=== PATIENT | male | born 1965 | race American Indian/Alaskan Native ===

== ENCOUNTER 2020-07-12 22:55 | Emergency (ER) | payer MEDICARE ==
[2020-07-13 01:14] LABS: Bilirubin,Urine NEG (Negative); Blood,Urine NEG (Negative); Color,Urine Colorless (Yellow); Mucus,Urine FEW /HPF; Protein,Urine <15 mg/dL mg/dL (Negative); Urobilinogen,Urine < 2.0 mg/dL (<2.0); WBC,Urine < 1.0 /HPF (0.0-6.0)
[2020-07-13 01:15] LABS: Basophils % (Auto) 0.3 % (0.0-1.8); Eosinophils # (Auto) 0.4 K/mm3 (0.0-0.4); Eosinophils % (Auto) 4.1 % (0.0-4.3); Hematocrit 39.9 % (35.5-45.6); Hemoglobin 13.5 gm/dl (11.8-15.2); Lymphocytes # (Auto) 2.5 K/mm3 (1.2-5.4); Lymphocytes % (Auto) 27.1 % (13.4-35.0); Mean Corpuscular HGB Conc 34 % (32-34); Mean Corpuscular Volume 89 fl (84-94); Monocytes # (Auto) 0.9 K/mm3 (0.0-0.8); Monocytes % (Auto) 9.3 % (0.0-7.3); Platelet Count 262 K/mm3 (140-440); Red Blood Count 4.47 M/mm3 (3.65-5.03)
[2020-07-13 01:21] LABS: Amphetamine Screen,Urine PRESUMPTIVE NEGATIVE; Benzodiazepines Screen,Urine PRESUMPTIVE NEGATIVE; Cannabinoid Screen,Urine PRESUMPTIVE NEGATIVE; Cocaine Screen,Urine PRESUMPTIVE NEGATIVE; Methadone Screen,Urine PRESUMPTIVE NEGATIVE; Opiate Screen,Urine PRESUMPTIVE NEGATIVE
[2020-07-13 01:29] LABS: BUN/Creatinine Ratio 12; Blood Urea Nitrogen 12 mg/dL (9-20); Calcium 9.4 mg/dL (8.4-10.2); Hemolysis Index 4
--- NOTE | 2020-07-13 09:45 | Emergency Department Report ---
ED Psych HPI - General Chief Complaint: Psych Stated Complaint: GURVINDER TEMPLE Time Seen by Provider: 07/13/20 07:48 Source: patient Mode of arrival: Ambulatory - History of Present Illness Initial Comments: Patient is a 54-year-old F Burmese male with a past medical history of schizoa ffective disorder and passive suicidal thoughts for most of his life is coming in stating that his suicidal thoughts are slightly worse than he wants some of his medications adjusted. He has had no active plan and no active attempts. Otherwise patient states he feels well. He has no cough cold congestion nausea vomiting or diarrhea at this time. - Related Data Home Medications Medication Instructions Recorded Confirmed Last Taken ARIPiprazole [Abilify TAB] 5 mg PO DAILY 07/13/20 07/13/20 Unknown Benztropine Mesylate 1 mg PO BID 07/13/20 07/13/20 07/12/20 hydrOXYzine PAMOATE [Vistaril] 25 mg PO TID 07/13/20 07/13/20 07/12/20 metFORMIN [Glucophage] 500 mg PO BID 07/13/20 07/13/20 1 Day Ago ~07/12/20 Allergies Allergy/AdvReac Type Severity Reaction Status Date / Time No Known Allergies Allergy Unverified 07/13/20 00:32 ED Review of Systems ROS: Stated complaint: GURVINDER EVAL Other details as noted in HPI Comment: All other systems reviewed and negative ED Past Medical Hx - Past Medical History Previous Medical History?: Yes Hx Psychiatric Treatment: Yes (Schizoaffective) - Surgical History Past Surgical History?: No - Social History Smoking Status: Former Smoker Substance Use Type: None - Medications Home Medications: Home Medications Medication Instructions Recorded Confirmed Last Taken Type ARIPiprazole [Abilify TAB] 5 mg PO DAILY 07/13/20 07/13/20 Unknown History Benztropine Mesylate 1 mg PO BID 07/13/20 07/13/20 07/12/20 History hydrOXYzine PAMOATE [Vistaril] 25 mg PO TID 07/13/20 07/13/20 07/12/20 History metFORMIN [Glucophage] 500 mg PO BID 07/13/20 07/13/20 1 Day Ago History ~07/12/20 ED Physical Exam - General Limitations: No Limitations General appearance: alert, in no apparent distress - Head Head exam: Present: atraumatic, normocephalic - Eye Eye exam: Present: normal appearance - ENT ENT exam: Present: mucous membranes moist - Neck Neck exam: Present: normal inspection - Respiratory Respiratory exam: Absent: respiratory distress - Cardiovascular Cardiovascular Exam: Present: regular rate, normal rhythm - GI/Abdominal GI/Abdominal exam: Present: soft, normal bowel sounds - Rectal Rectal exam: Present: deferred - Extremities Exam Extremities exam: Present: normal inspection - Back Exam Back exam: Present: normal inspection - Neurological Exam Neurological exam: Present: alert, oriented X3 - Psychiatric Psychiatric exam: Present: normal affect, normal mood - Skin Skin exam: Present: warm, dry, intact, normal color. Absent: rash ED Course Vital Signs 07/13/20 00:16 Temperature 98.0 F Pulse Rate 76 Respiratory 16 Rate Blood Pressure 119/77 O2 Sat by Pulse 96 Oximetry - Reevaluation(s) Reevaluation #1: 07/13/20 09:57 Patient is medically cleared at this time for psychiatric evaluation ED Medical Decision Making - Lab Data Result diagrams: 07/13/20 00:35 07/13/20 00:35 Lab Results 07/13/20 07/13/20 07/13/20 Range/Units 00:33 00:33 00:35 WBC (4.5-11.0) K/mm3 RBC (3.65-5.03) M/mm3 Hgb (11.8-15.2) gm/dl Hct (35.5-45.6) % MCV (84-94) fl MCH (28-32) pg MCHC (32-34) % RDW (13.2-15.2) % Plt Count (140-440) K/mm3 Lymph % (Auto) (13.4-35.0) % [place] % (Auto) (0.0-7.3) % Eos % (Auto) (0.0-4.3) % Baso % (Auto) (0.0-1.8) % Lymph # (Auto) (1.2-5.4) K/mm3 [place] # (Auto) (0.0-0.8) K/mm3 Eos # (Auto) (0.0-0.4) K/mm3 Baso # (Auto) (0.0-0.1) K/mm3 Seg Neutrophils % (40.0-70.0) % Seg Neutrophils # (1.8-7.7) K/mm3 Sodium (137-145) mmol/L Potassium (3.6-5.0) mmol/L Chloride (98-107) mmol/L Carbon Dioxide (22-30) mmol/L Anion Gap mmol/L BUN (9-20) mg/dL Creatinine (0.8-1.3) mg/dL Estimated GFR ml/min BUN/Creatinine Ratio % Glucose (75-100) mg/dL Calcium (8.4-10.2) mg/dL Urine Color Colorless (Yellow) Urine Turbidity Clear (Clear) Urine pH 5.0 (5.0-7.0) Ur Specific Gar[place] 1.003 (1.003-1.030) Urine Protein <15 mg/dl (Negative) mg/dL Urine Glucose (UA) Neg (Negative) mg/dL Urine Ketones Neg (Negative) mg/dL Urine Blood Neg (Negative) Urine Nitrite Neg (Negative) Urine Bilirubin Neg (Negative) Urine Urobilinogen < 2.0 (<2.0) mg/dL Ur Leukocyte Esterase Neg (Negative) Urine WBC (Auto) < 1.0 (0.0-6.0) /HPF Urine RBC (Auto) 0.0 (0.0-6.0) /HPF Urine Mucus Few /HPF Salicylates < 0.3 L (2.8-20.0) mg/dL Urine Opiates Screen Presumptive negative Urine Methadone Screen Presumptive negative Acetaminophen (10.0-30.0) ug/mL Ur Barbiturates Screen Presumptive negative Ur Phencyclidine Scrn Presumptive negative Ur Amphetamines Screen Presumptive negative U Benzodiazepines Scrn Presumptive negative Urine Cocaine Screen Presumptive negative U Marijuana (THC) Screen Presumptive negative Drugs of Abuse Note Disclamer Plasma/Serum Alcohol (0-0.07) % 07/13/20 07/13/20 07/13/20 Range/Units 00:35 00:35 00:35 WBC (4.5-11.0) K/mm3 RBC (3.65-5.03) M/mm3 Hgb (11.8-15.2) gm/dl Hct (35.5-45.6) % MCV (84-94) fl MCH (28-32) pg MCHC (32-34) % RDW (13.2-15.2) % Plt Count (140-440) K/mm3 Lymph % (Auto) (13.4-35.0) % [place] % (Auto) (0.0-7.3) % Eos % (Auto) (0.0-4.3) % Baso % (Auto) (0.0-1.8) % Lymph # (Auto) (1.2-5.4) K/mm3 [place] # (Auto) (0.0-0.8) K/mm3 Eos # (Auto) (0.0-0.4) K/mm3 Baso # (Auto) (0.0-0.1) K/mm3 Seg Neutrophils % (40.0-70.0) % Seg Neutrophils # (1.8-7.7) K/mm3 Sodium 138 (137-145) mmol/L Potassium 4.2 (3.6-5.0) mmol/L Chloride 99.1 (98-107) mmol/L Carbon Dioxide 24 (22-30) mmol/L Anion Gap 19 mmol/L BUN 12 (9-20) mg/dL Creatinine 1.0 (0.8-1.3) mg/dL Estimated GFR > 60 ml/min BUN/Creatinine Ratio 12 % Glucose 77 (75-100) mg/dL Calcium 9.4 (8.4-10.2) mg/dL Urine Color (Yellow) Urine Turbidity (Clear) Urine pH (5.0-7.0) Ur Specific Gar[place] (1.003-1.030) Urine Protein (Negative) mg/dL Urine Glucose (UA) (Negative) mg/dL Urine Ketones (Negative) mg/dL Urine Blood (Negative) Urine Nitrite (Negative) Urine Bilirubin (Negative) Urine Urobilinogen (<2.0) mg/dL Ur Leukocyte Esterase (Negative) Urine WBC (Auto) (0.0-6.0) /HPF Urine RBC (Auto) (0.0-6.0) /HPF Urine Mucus /HPF Salicylates (2.8-20.0) mg/dL Urine Opiates Screen Urine Methadone Screen Acetaminophen 5.0 L (10.0-30.0) ug/mL Ur Barbiturates Screen Ur Phencyclidine Scrn Ur Amphetamines Screen U Benzodiazepines Scrn Urine Cocaine Screen U Marijuana (THC) Screen Drugs of Abuse Note Plasma/Serum Alcohol < 0.01 (0-0.07) % 07/13/20 Range/Units 00:35 WBC 9.2 (4.5-11.0) K/mm3 RBC 4.47 (3.65-5.03) M/mm3 Hgb 13.5 (11.8-15.2) gm/dl Hct 39.9 (35.5-45.6) % MCV 89 (84-94) fl MCH 30 (28-32) pg MCHC 34 (32-34) % RDW 14.0 (13.2-15.2) % Plt Count 262 (140-440) K/mm3 Lymph % (Auto) 27.1 (13.4-35.0) % [place] % (Auto) 9.3 H (0.0-7.3) % Eos % (Auto) 4.1 (0.0-4.3) % Baso % (Auto) 0.3 (0.0-1.8) % Lymph # (Auto) 2.5 (1.2-5.4) K/mm3 [place] # (Auto) 0.9 H (0.0-0.8) K/mm3 Eos # (Auto) 0.4 (0.0-0.4) K/mm3 Baso # (Auto) 0.0 (0.0-0.1) K/mm3 Seg Neutrophils % 59.2 (40.0-70.0) % Seg Neutrophils # 5.5 (1.8-7.7) K/mm3 Sodium (137-145) mmol/L Potassium (3.6-5.0) mmol/L Chloride (98-107) mmol/L Carbon Dioxide (22-30) mmol/L Anion Gap mmol/L BUN (9-20) mg/dL Creatinine (0.8-1.3) mg/dL Estimated GFR ml/min BUN/Creatinine Ratio % Glucose (75-100) mg/dL Calcium (8.4-10.2) mg/dL Urine Color (Yellow) Urine Turbidity (Clear) Urine pH (5.0-7.0) Ur Specific [place] (1.003-1.030) Urine Protein (Negative) mg/dL Urine Glucose (UA) (Negative) mg/dL Urine Ketones (Negative) mg/dL Urine Blood (Negative) Urine Nitrite (Negative) Urine Bilirubin (Negative) Urine Urobilinogen (<2.0) mg/dL Ur Leukocyte Esterase (Negative) Urine WBC (Auto) (0.0-6.0) /HPF Urine RBC (Auto) (0.0-6.0) /HPF Urine Mucus /HPF Salicylates (2.8-20.0) mg/dL Urine Opiates Screen Urine Methadone Screen Acetaminophen (10.0-30.0) ug/mL Ur Barbiturates Screen Ur Phencyclidine Scrn Ur Amphetamines Screen U Benzodiazepines Scrn Urine Cocaine Screen U Marijuana (THC) Screen Drugs of Abuse Note Plasma/Serum Alcohol (0-0.07) % - Medical Decision Making ESTEE ARAUZ Male : 1965 MedRec# [id number] 07/13/20 14:28 - Hydrographic Engineer's Note by MAUREEN SYKES Acct Num: [id number] : 1965 Patient Age: 54 MENTAL HEALTH ASSESSMENT COMPLETED: Pt is a 54 year old AA male; Per triage, "Suicidal ideations all his life but has no plans. Requesting psych meds to be adjusted."Pt reports that he has Schizoaffective Disease; pt was followed by Dr. Flores in [place], [place]. Pt reports that he was discharged from [facility] last month and pt was followed by Dr. Jones at [facility] for outpatient medications, "but I stay in a new nursing home in [place] and I want someone to see about my medicines. "They gave me a shot and something for anxiety attacks. I took the shot a couple of weeks ago." Pt denies any suicidal ideation currently. Pt reports that he has had bouts of depression and SI throughout his life, "because the diagnosed me with PTSD and Schizoaffective Disease." Pt denies any current sadness or depr ession; "I've been doing good, I want my medications changed though." Pt is alert and oriented. Pt gives name, , son's name and number, the current year and current events. Pt denies any AH or VH. Pt does not appear to be responding to internal stimuli. Pt's thoughts at times seem to be tangential as he begins talking about his time in the and gets fixated on that, but pt is easily redirected. Pt denies any homicidal ideations or plans. Pt is calm and cooperative.Pt reports no substance use; pt tox was negative, BAL is 0. Pt reports in his "younger days I liked the women and partying and doing drugs, but not anymore now." Pt reports that he previously lived in [place] and [place]. Pt reports that he lives in an apartment where he rents out a bedroom; "the gerri nment SSI, and medicare pays for it." "I got disability from the government." RECOMMENDATION: Pt does not meet criteria for inpatient stabilization/1013. Pt will be given outpatient referrals in the area where he can follow up with the medication adjustment that he is requesting. Pt is up to date on his current IM medications, but he would like an outpatient provider to follow up with and sp eak about adjusting meds. The pt has also been provided the crisis line number in his discharge packet. Maureen Cagle LPC Initialized on 07/13/20 14:28 - END OF NOTE Critical care attestation.: If time is entered above; I have spent that time in minutes in the direct care o f this critically ill patient, excluding procedure time. ED Disposition Clinical Impression: Schizoaffective disorder Disposition: DC-01 TO HOME OR SELFCARE Is pt being admited?: No Does the pt Need Aspirin: No Condition: Stable Additional Instructions: OUTPATIENT MENTAL HEALTH RESOURCES [facility], [facility] Mal Leach MD: [address] [facility] [address] [place] [address] [place] [address] [facility]: [employer] [facility] [address] [place] [address] [place] [address] [phone] [facility]: [facility] Healthcare: [address] [place] [address] [facility] [id number] [facility]: Denys Hernandez MD: [address] [facility] [id number] [facility]: [address] [place] [address] [phone] [facility] CR[facility] ACCESS LINE: Referrals: JEOVANNY CM MD [Primary Care Provider] - 3-5 Days Time of Disposition: 16:27
[2020-07-14] MEDS ORDERED: ACETAMINOPHEN 325 MG TAB PO ONE (23:03)
[2020-07-16] MEDS: BENZTROPINE 1 MG TAB PO SCH (22:26)
[2020-07-16] MEDS: metFORMIN 500 MG TAB PO SCH (22:26)
[2020-07-16] MEDS: ARIPiprazole 5 MG TAB PO SCH (22:26)
[2020-07-17] MEDS: metFORMIN 500 MG TAB PO SCH (22:09)
[2020-07-17] MEDS: BENZTROPINE 1 MG TAB PO SCH (22:09)
[2020-07-18] MEDS ORDERED: ACETAMINOPHEN 325 MG TAB ONE (04:00)
[2020-07-18] MEDS ORDERED: ACETAMINOPHEN 325 MG TAB PO ONE (04:02)
[2020-07-18] MEDS: BENZTROPINE 1 MG TAB PO SCH ×3 (08:08→22:09)
[2020-07-18] MEDS: metFORMIN 500 MG TAB PO SCH ×3 (08:08→22:09)
[2020-07-18] MEDS: ARIPiprazole 5 MG TAB PO SCH ×2 (08:08→09:52)
--- NOTE | 2020-07-18 13:32 | XRay Report ---
CHEST 1 VIEW INDICATION: HTN. COMPARISON: None. FINDINGS: Support devices: None. Heart: Normal. Lungs/Pleura: No acute pulmonary or pleural findings. IMPRESSION: 1. No acute findings. Signer Name: James Bullock MD Signed: 07/18/2020 1:27 PM Workstation Name: [id number]
[2020-07-19] MEDS ORDERED: ACETAMINOPHEN 325 MG TAB ONE (06:40)
[2020-07-19] MEDS ORDERED: ACETAMINOPHEN 325 MG TAB PO ONE (06:48)
[2020-07-19] MEDS: BENZTROPINE 1 MG TAB PO SCH ×2 (10:51→22:10)
[2020-07-19] MEDS: ARIPiprazole 5 MG TAB PO SCH (10:51)
[2020-07-19] MEDS: metFORMIN 500 MG TAB PO SCH ×2 (10:52→22:10)
[2020-07-20] MEDS ORDERED: BISMUTH SUBSALICYLATE 262 MG/15 ML ORAL LIQD PO NR (08:30)
[2020-07-20] MEDS: BENZTROPINE 1 MG TAB PO SCH ×2 (10:17→21:53)
[2020-07-20] MEDS: ARIPiprazole 5 MG TAB PO SCH (10:17)
[2020-07-20] MEDS: metFORMIN 500 MG TAB PO SCH ×2 (10:17→21:54)
[2020-07-21] MEDS: BENZTROPINE 1 MG TAB PO SCH ×2 (10:55→22:33)
[2020-07-21] MEDS: ARIPiprazole 5 MG TAB PO SCH (10:55)
[2020-07-21] MEDS: metFORMIN 500 MG TAB PO SCH ×2 (10:55→22:34)
[2020-07-22] MEDS: ARIPiprazole 5 MG TAB PO SCH (10:04)
[2020-07-22] MEDS: metFORMIN 500 MG TAB PO SCH ×2 (10:04→22:49)
[2020-07-22] MEDS: BENZTROPINE 1 MG TAB PO SCH ×2 (10:04→22:49)
[2020-07-23 10:22] VITALS: BP 122/76
== END 2020-07-23 10:59 | disposition home or self-care (01) ==
LOC: EEVIPCON 22:55 → ED 22:55
DX: F25.8 Other schizoaffective disorders (principal); Z87.891 Personal history of nicotine dependence; Z20.828 Contact with and (suspected) exposure to other viral communicable diseases
CPT/HCPCS: 36415; 71045; 80048; 80307; 81001; 82962; 85025; 99284; U0003; 80320; G0480

== ENCOUNTER 2021-02-22 21:31 | Inpatient (IN) | payer MEDICARE ==
[2021-02-22 21:59] LABS: Bacteria,Urine 1+ /HPF (Negative); Bilirubin,Urine NEG (Negative); Blood,Urine NEG (Negative); Color,Urine Straw (Yellow); Protein,Urine <15 mg/dL mg/dL (Negative); Urobilinogen,Urine < 2.0 mg/dL (<2.0)
[2021-02-22 22:00] LABS: Basophils # (Auto) 0.1 K/mm3 (0.0-0.1); Basophils % (Auto) 0.8 % (0.0-1.8); Eosinophils # (Auto) 0.3 K/mm3 (0.0-0.4); Eosinophils % (Auto) 3.3 % (0.0-4.3); Hematocrit 40.5 % (35.5-45.6); Lymphocytes # (Auto) 2.1 K/mm3 (1.2-5.4); Lymphocytes % (Auto) 23.8 % (13.4-35.0); Mean Corpuscular HGB Conc 35 % (32-34); Mean Corpuscular Volume 86 fl (84-94); Monocytes # (Auto) 0.8 K/mm3 (0.0-0.8); Monocytes % (Auto) 9.2 % (0.0-7.3); Platelet Count 197 K/mm3 (140-440); Red Blood Count 4.71 M/mm3 (3.65-5.03); Red Cell Distribution Width 13.7 % (13.2-15.2)
[2021-02-22 22:06] LABS: Amphetamine Screen,Urine PRESUMPTIVE NEGATIVE; Benzodiazepines Screen,Urine PRESUMPTIVE NEGATIVE; Cannabinoid Screen,Urine PRESUMPTIVE NEGATIVE; Cocaine Screen,Urine PRESUMPTIVE NEGATIVE; Methadone Screen,Urine PRESUMPTIVE NEGATIVE; Opiate Screen,Urine PRESUMPTIVE NEGATIVE
[2021-02-22 22:19] LABS: BUN/Creatinine Ratio 12; Blood Urea Nitrogen 12 mg/dL (9-20); Hemolysis Index 2
--- NOTE | 2021-02-23 00:45 | Emergency Department Report ---
ED Psych HPI - General Chief Complaint: Psych Stated Complaint: HALLUCINATIONS/MH Time Seen by Provider: 02/22/21 22:48 Source: patient Mode of arrival: Ambulatory - History of Present Illness Initial Comments: Patient is a 55-year-old F Vietnamese male with past medical history schizophrenia who was here earlier today because of a broken tooth. Patient resigned him because he had been sitting in our waiting room and has been making comments to other patients in the waiting room that he had [employer] guidance and he is try to protect the present. Several patient is became frightened by having the patient became more agitated. In talking with the patient he states he feels like his brain is be draining him. States he is taking his medications as prescribed. Does appear to be responding to internal stimuli. Denies any visual hallucinations at this time. Patient states he does feel very paranoid but feels like he is the only one that can stop people from killing the President - Related Data Home Medications Medication Instructions Recorded Confirmed Last Taken ARIPiprazole [Abilify TAB] 5 mg PO DAILY 07/13/20 02/22/21 Unknown Benztropine Mesylate 1 mg PO BID 07/13/20 02/22/21 07/12/20 hydrOXYzine PAMOATE [Vistaril] 25 mg PO TID 07/13/20 02/22/21 07/12/20 metFORMIN [Glucophage] 500 mg PO BID 07/13/20 02/22/21 1 Day Ago ~07/12/20 Pantoprazole [Protonix] 40 mg PO QAM 02/22/21 02/22/21 Unknown Ramelteon 8 mg PO QHS 02/22/21 02/22/21 Unknown Allergies Allergy/AdvReac Type Severity Reaction Status Date / Time No Known Allergies Allergy Verified 07/15/20 00:58 ED Review of Systems ROS: Stated complaint: HALLUCINATIONS/MH Other details as noted in HPI Comment: All other systems reviewed and negative ED Past Medical Hx - Past Medical History Hx Psychiatric Treatment: Yes (Schizoaffective) - Social History Smoking Status: Unknown if ever smoked - Medications Home Medications: Home Medications Medication Instructions Recorded Confirmed Last Taken Type ARIPiprazole [Abilify TAB] 5 mg PO DAILY 07/13/20 02/22/21 Unknown History Benztropine Mesylate 1 mg PO BID 07/13/20 02/22/21 07/12/20 History hydrOXYzine PAMOATE [Vistaril] 25 mg PO TID 07/13/20 02/22/21 07/12/20 History metFORMIN [Glucophage] 500 mg PO BID 07/13/20 02/22/21 1 Day Ago History ~07/12/20 Pantoprazole [Protonix] 40 mg PO QAM 02/22/21 02/22/21 Unknown History Ramelteon 8 mg PO QHS 02/22/21 02/22/21 Unknown History ED Physical Exam - General Limitations: No Limitations General appearance: alert, in no apparent distress - Head Head exam: Present: atraumatic, normocephalic - Eye Eye exam: Present: normal appearance - ENT ENT exam: Present: mucous membranes moist - Neck Neck exam: Present: normal inspection - Respiratory Respiratory exam: Present: normal lung sounds bilaterally. Absent: respiratory distress, wheezes, rales, rhonchi - Cardiovascular Cardiovascular Exam: Present: regular rate, normal rhythm. Absent: systolic murmur, diastolic murmur, rubs, gallop - GI/Abdominal GI/Abdominal exam: Present: soft, normal bowel sounds. Absent: distended, tenderness - Rectal Rectal exam: Present: deferred - Extremities Exam Extremities exam: Present: normal inspection - Back Exam Back exam: Present: normal inspection - Neurological Exam Neurological exam: Present: alert, oriented X3 - Psychiatric Psychiatric exam: Present: flat affect - Skin Skin exam: Present: warm, dry, intact, normal color. Absent: rash ED Course Vital Signs 02/22/21 02/23/21 02/23/21 22:43 09:19 20:09 Temperature 98 F 98.0 F 98.3 F Pulse Rate 82 70 94 H Respiratory 18 18 18 Rate Blood Pressure 110/78 128/76 134/72 [Left] O2 Sat by Pulse 97 97 95 Oximetry 02/23/21 22:00 Temperature 98.9 F Pulse Rate 74 Respiratory 18 Rate Blood Pressure 112/67 [Left] O2 Sat by Pulse 97 Oximetry - Reevaluation(s) Reevaluation #1: 02/23/21 00:53 Patient is medically cleared at this time Reevaluation #2: 03/03/21 00:33 Psychiatric Consult Note Patient Name: ESTEE ARAUZ Date of : 1965 Patient Status: Inpatient Attending Provider: NHUNG UNDERWOOD Date: 02/23/21 10:27 Initialization Date: 02/23/21 10:27 History of Present Illness - Reason for Consult Consult date: 02/23/21 Reason for consult: psychosis - History of Present Psychiatric Illness Per Ed Note: Patient is a 55-year-old F Vietnamese male with past medical history schizophrenia who was here earlier today because of a broken tooth. Patient resigned him because he had been sitting in our waiting room and has been making comments to other patients in the waiting room that he had [employer] guidance and he is try to protect the present. Several patient is became frightened by having the patient became more agitated. In talking with the patient he states he feels like his brain is be draining him. States he is taking his medications as prescribed. Does appear to be responding to internal stimuli. Denies any visual hallucinations at this time. Patient states he does feel very paranoid but feels like he is the only one that can stop people from killing the President. The patient was seen today, he is acutely psychotic. The patient is delusional, paranoid and responding to internal stimuli. His speech is nonsensical and he's having flight of ideas. He is intrusive and walks interrupts when I'm talking to other patient's and invades personal space. The patient says he's seeing things he "can't explain." The patient states to me "I called the [employer] and told them I seen the [employer] film." He then says "they stopped me from getting killed." When asked about SI/HI, the patient replies "I'm suicidal but I won't hurt nobody else." He says "I keep seeing myself getting killed in my dreams and taking myself out." He then says "because I know that man that shot Kobi brains out." The patient could not tell me if he has any psych history. He states "I don't know, but I'm trying to find out." PAST PSYCHIATRIC HISTORY Diagnoses: Suicide attempts or Self-harm behavior: Prior psychiatric hospitalizations: Substance Abuse history: Previous psychiatric medications tried: Outpatient treatment: PAST MEDICAL HISTORY: None report Family Psychiatric History: None reported or documented SOCIAL HISTORY Unable to obtain REVIEW OF SYSTEMS Constitutional: Negative for weight loss ENT: Negative for stridor Respiratory: Negative for cough or hemoptysis All other systems reviewed and are negative MENTAL STATUS EXAMINATION General Appearance and Behavior: Age appropriate, good hygiene, wearing appropriate clothes, good eye contact, intrusive Cooperation: Participating/engaged, but Guarded Psychomotor Behavior: Psychomotor normal Mood: Affect and affective range: labile Thought Process: illogical Thought Content: responding to internal stimuli, delusions Speech: nonsensical, flight of ideas Suicidal Ideation: Yes Homicidal Ideation: Denies HI Hallucinations: Auditory Impulse Control: Impaired Insight and Judgment: Poor insight and judgment Memory: Limited Attention: Divided Orientation: Alert, oriented Assessment and Plan Schizophrenia Treatment 1013 Agree with prescribed meds Depakote DR 125mg po BID Sitter: Per primary Medical: Per primary Disposition: Recommend acute psychiatric inpatient treatment Will follow. Thank you for this consult Case staffed with Dr. Romeo VILLASEÑOR Medical Decision Making - Lab Data Result diagrams: 02/24/21 09:46 02/24/21 09:46 Labs 02/22/21 02/22/21 02/22/21 21:48 21:48 21:48 WBC RBC Hgb Hct MCV MCH MCHC RDW Plt Count Lymph % (Auto) Blair % (Auto) Eos % (Auto) Baso % (Auto) Lymph # (Auto) Blair # (Auto) Eos # (Auto) Baso # (Auto) Seg Neutrophils % Seg Neutrophils # Sodium 139 Potassium 4.1 Chloride 99.2 Carbon Dioxide 30 Anion Gap 14 BUN 12 Creatinine 1.0 Estimated GFR > 60 BUN/Creatinine Ratio 12 Glucose 97 Calcium 9.0 Urine Color Urine Turbidity Urine pH Ur Specific Stanton Urine Protein Urine Glucose (UA) Urine Ketones Urine Blood Urine Nitrite Urine Bilirubin Urine Urobilinogen Ur Leukocyte Esterase Urine WBC (Auto) Urine RBC (Auto) U Epithel Cells (Auto) Urine Bacteria (Auto) Salicylates < 0.3 L Urine Opiates Screen Urine Methadone Screen Acetaminophen 5.0 L Ur Barbiturates Screen Ur Phencyclidine Scrn Ur Amphetamines Screen U Benzodiazepines Scrn Urine Cocaine Screen U Marijuana (THC) Screen Drugs of Abuse Note Plasma/Serum Alcohol 02/22/21 02/22/21 02/22/21 21:48 21:48 Unknown WBC 8.7 RBC 4.71 Hgb 14.0 Hct 40.5 MCV 86 MCH 30 MCHC 35 H RDW 13.7 Plt Count 197 Lymph % (Auto) 23.8 Blair % (Auto) 9.2 H Eos % (Auto) 3.3 Baso % (Auto) 0.8 Lymph # (Auto) 2.1 Blair # (Auto) 0.8 Eos # (Auto) 0.3 Baso # (Auto) 0.1 Seg Neutrophils % 62.9 Seg Neutrophils # 5.4 Sodium Potassium Chloride Carbon Dioxide Anion Gap BUN Creatinine Estimated GFR BUN/Creatinine Ratio Glucose Calcium Urine Color Straw Urine Turbidity Clear Urine pH 6.0 Ur Specific [place] 1.009 Urine Protein <15 mg/dl Urine Glucose (UA) Neg Urine Ketones Neg Urine Blood Neg Urine Nitrite Neg Urine Bilirubin Neg Urine Urobilinogen < 2.0 Ur Leukocyte Esterase Neg Urine WBC (Auto) 1.0 Urine RBC (Auto) 1.0 U Epithel Cells (Auto) < 1.0 Urine Bacteria (Auto) 1+ Salicylates Urine Opiates Screen Urine Methadone Screen Acetaminophen Ur Barbiturates Screen Ur Phencyclidine Scrn Ur Amphetamines Screen U Benzodiazepines Scrn Urine Cocaine Screen U Marijuana (THC) Screen Drugs of Abuse Note Plasma/Serum Alcohol < 0.01 02/22/21 Unknown WBC RBC Hgb Hct MCV MCH MCHC RDW Plt Count Lymph % (Auto) Blair % (Auto) Eos % (Auto) Baso % (Auto) Lymph # (Auto) Blair # (Auto) Eos # (Auto) Baso # (Auto) Seg Neutrophils % Seg Neutrophils # Sodium Potassium Chloride Carbon Dioxide Anion Gap BUN Creatinine Estimated GFR BUN/Creatinine Ratio Glucose Calcium Urine Color Urine Turbidity Urine pH Ur Specific [place] Urine Protein Urine Glucose (UA) Urine Ketones Urine Blood Urine Nitrite Urine Bilirubin Urine Urobilinogen Ur Leukocyte Esterase Urine WBC (Auto) Urine RBC (Auto) U Epithel Cells (Auto) Urine Bacteria (Auto) Salicylates Urine Opiates Screen Presumptive negative Urine Methadone Screen Presumptive negative Acetaminophen Ur Barbiturates Screen Presumptive negative Ur Phencyclidine Scrn Presumptive negative Ur Amphetamines Screen Presumptive negative U Benzodiazepines Scrn Presumptive negative Urine Cocaine Screen Presumptive negative U Marijuana (THC) Screen Presumptive negative Drugs of Abuse Note Disclamer Plasma/Serum Alcohol Critical care attestation.: If time is entered above; I have spent that time in minutes in the direct care of this critically ill patient, excluding procedure time. ED Disposition Clinical Impression: Schizoaffective disorder, PTSD (post-traumatic stress disorder) Disposition: DC-01 TO HOME OR SELFCARE Is pt being admited?: No Does the pt Need Aspirin: No Condition: Stable
[2021-02-23] MEDS ORDERED: ALUM-MAG HYDROXIDE-SIMETHICONE 200-200-20MG/5ML ORAL LIQD 30 ML PO PRN (01:10)
[2021-02-23] MEDS ORDERED: MAGNESIUM HYDROXIDE (MOM) ORAL LIQD UDC PO PRN (01:10)
[2021-02-23] MEDS: metFORMIN 500 MG TAB PO SCH ×2 (09:14→16:54)
[2021-02-23] MEDS: hydrOXYzine PAMOATE 25 MG CAP PO SCH ×3 (09:14→21:47)
[2021-02-23] MEDS: BENZTROPINE 1 MG TAB PO SCH ×2 (10:20→21:47)
[2021-02-23] MEDS: PANTOPRAZOLE 40 MG TAB PO SCH (10:20)
[2021-02-23] MEDS: ARIPiprazole 5 MG TAB PO SCH (10:20)
--- NOTE | 2021-02-23 10:28 | Consultation ---
History of Present Illness - Reason for Consult Consult date: 02/23/21 Reason for consult: psychosis - History of Present Psychiatric Illness Per Ed Note: Patient is a 55-year-old F Ethiopian male with past medical history schizophrenia who was here earlier today because of a broken tooth. Patient resigned him because he had been sitting in our waiting room and has been making comments to other patients in the waiting room that he had [employer] and he is try to protect the present. Several patient is became frightened by having the patient became more agitated. In talking with the patient he states he feels like his brain is be draining him. States he is taking his medications as prescribed. Does appear to be responding to internal stimuli. Denies any visual hallucinations at this time. Patient states he does feel very paranoid but feels like he is the only one that can stop people from killing the President. The patient was seen today, he is acutely psychotic. The patient is delusional, paranoid and responding to internal stimuli. His speech is nonsensical and he's having flight of ideas. He is intrusive and walks interrupts when I'm talking to other patient's and invades personal space. The patient says he's seeing things he "can't explain." The patient states to me "I called the [employer] and told them I seen the [employer]." He then says "they stopped me from getting killed." When asked about SI/HI, the patient replies "I'm suicidal but I won't hurt nobody else." He says "I keep seeing myself getting killed in my dreams and taking myself out." He then says "because I know that man that shot Kobi brains out." The patient could not tell me if he has any psych history. He states "I don't know, but I'm trying to find out." PAST PSYCHIATRIC HISTORY Diagnoses: Suicide attempts or Self-harm behavior: Prior psychiatric hospitalizations: Substance Abuse history: Previous psychiatric medications tried: Outpatient treatment: PAST MEDICAL HISTORY: None report Family Psychiatric History: None reported or documented SOCIAL HISTORY Unable to obtain REVIEW OF SYSTEMS Constitutional: Negative for weight loss ENT: Negative for stridor Respiratory: Negative for cough or hemoptysis All other systems reviewed and are negative MENTAL STATUS EXAMINATION General Appearance and Behavior: Age appropriate, good hygiene, wearing appropriate clothes, good eye contact, intrusive Cooperation: Participating/engaged, but Guarded Psychomotor Behavior: Psychomotor normal Mood: Affect and affective range: labile Thought Process: illogical Thought Content: responding to internal stimuli, delusions Speech: nonsensical, flight of ideas Suicidal Ideation: Yes Homicidal Ideation: Denies HI Hallucinations: Auditory Impulse Control: Impaired Insight and Judgment: Poor insight and judgment Memory: Limited Attention: Divided Orientation: Alert, oriented Assessment and Plan Schizophrenia Treatment 1013 Agree with prescribed meds Andrade DR 125mg po BID Sitter: Per primary Medical: Per primary Disposition: Recommend acute psychiatric inpatient treatment Will follow. Thank you for this consult Case staffed with Dr. Walters Medications and Allergies Allergies Allergy/AdvReac Type Severity Reaction Status Date / Time No Known Allergies Allergy Verified 07/15/20 00:58 Home Medications Medication Instructions Recorded Confirmed Last Taken Type ARIPiprazole [Abilify TAB] 5 mg PO DAILY 07/13/20 02/22/21 Unknown History Benztropine Mesylate 1 mg PO BID 07/13/20 02/22/21 07/12/20 History hydrOXYzine PAMOATE [Vistaril] 25 mg PO TID 07/13/20 02/22/21 07/12/20 History metFORMIN [Glucophage] 500 mg PO BID 07/13/20 02/22/21 1 Day Ago History ~07/12/20 Pantoprazole [Protonix] 40 mg PO QAM 02/22/21 02/22/21 Unknown History Ramelteon 8 mg PO QHS 02/22/21 02/22/21 Unknown History Active Meds: Active Medications Acetaminophen (Acetaminophen 325 Mg Tab) 650 mg PO Q4HR PRN PRN Reason: Pain MILD(1-3)/Fever >100.5/CROWDER Al Hydrox/Mg Hydrox/Simethicone (Alum-Mag Hydroxide-Simethicone [phone]/5ml Oral Liqd 30 Ml) 30 ml PO Q4HR PRN PRN Reason: Indigestion Aripiprazole (Aripiprazole 5 Mg Tab) 5 mg PO DAILY [facility] Last Admin: 02/23/21 10:20 Dose: 5 mg Documented by: Benztropine Mesylate (Benztropine 1 Mg Tab) 1 mg PO BID [facility] Last Admin: 02/23/21 10:20 Dose: 1 mg Documented by: Hydroxyzine Pamoate (Hydroxyzine Pamoate 25 Mg Cap) 25 mg PO TID [facility] Last Admin: 02/23/21 09:14 Dose: 25 mg Documented by: Magnesium Hydroxide (Magnesium Hydroxide (Mom) Oral Liqd Udc) 30 ml PO Q12HR PRN PRN Reason: Constipation Metformin HCl (Metformin 500 Mg Tab) 500 mg PO BIDDIAB [facility] Last Admin: 02/23/21 09:14 Dose: 500 mg Documented by: Miscellaneous Medication (Ramelteon [Ramelteon]) 8 mg PO QHS [facility] Pantoprazole Sodium (Pantoprazole 40 Mg Tab) 40 mg PO QAM [facility] Last Admin: 02/23/21 10:20 Dose: 40 mg Documented by: Mental Status Exam - Vital signs Last Vital Signs Temp 98.0 F 02/23/21 09:19 Pulse 70 02/23/21 09:19 Resp 18 02/23/21 09:19 BP 128/76 02/23/21 09:19 Pulse Ox 97 02/23/21 09:19 Results Result Diagrams: 02/22/21 21:48 02/22/21 21:48 Abnormal lab results 02/22/21 02/22/21 02/22/21 Range/Units 21:48 21:48 21:48 MCHC 35 H (32-34) % [place] % (Auto) 9.2 H (0.0-7.3) % Salicylates < 0.3 L (2.8-20.0) mg/dL Acetaminophen 5.0 L (10.0-30.0) ug/mL All other labs normal.
[2021-02-23] MEDS: DIVALPROEX DR 125 MG TAB PO SCH ×2 (11:23→21:47)
[2021-02-23] MEDS ORDERED: RAMELTEON 8 MG PO SCH (22:00)
[2021-02-24] MEDS: hydrOXYzine PAMOATE 25 MG CAP PO SCH ×3 (09:13→20:59)
[2021-02-24] MEDS: ARIPiprazole 5 MG TAB PO SCH (09:14)
[2021-02-24] MEDS: PANTOPRAZOLE 40 MG TAB PO SCH (09:14)
[2021-02-24] MEDS: DIVALPROEX DR 125 MG TAB PO SCH ×2 (09:14→21:22)
[2021-02-24] MEDS: BENZTROPINE 1 MG TAB PO SCH ×2 (09:14→21:21)
[2021-02-24] MEDS: metFORMIN 500 MG TAB PO SCH ×2 (09:14→16:43)
--- NOTE | 2021-02-24 09:37 | History and Physical Report ---
GP History & Physical - History of Present Illness Date of admission: 02/23/21 Date of Examination: 02/24/21 Reason for Admission: Danger to self, Failure of Outpatient Treatment, Severe anxiety/depression History of Present Illness: Per ER Note: Patient is a 55-year-old F Citizen Of [place] male with past medical history schizophrenia who was here earlier today because of a broken tooth. Patient resigned him because he had been sitting in our waiting room and has been making comments to other patients in the waiting room that he had [employer] and he is try to protect the present. Several patient is became frightened by having the patient became more agitated. In talking with the patient he states he feels like his brain is be draining him. States he is taking his medications as prescribed. Does appear to be responding to internal stimuli. Denies any visual hallucinations at this time. Patient states he does feel very paranoid but feels like he is the only one that can stop people from killing the President. Estee Thacker is a 55y/o male patient whom I first rounded on in the ER. At that time the patient was acutely psychotic, responding to internal stimuli, delusional and suicidal. During my assessment today, the patient seems somewhat better. He is less psychotic this morning, however he is still delusional some. His mood is euphoric. He says he sees "Kobi being assassinated." He says "I know Calderon Nelson since childhood." When asking the patient was he still suicidal, he states "Yea, but just a little. My mind gets scared because it's trapped in violence." The patient then starts complaining about his throat, stomach problems, and chest. PAST PSYCHIATRIC HISTORY Diagnoses: Suicide attempts or Self-harm behavior: Prior psychiatric hospitalizations: Substance Abuse history: Previous psychiatric medications tried: Outpatient treatment: PAST MEDICAL HISTORY: None report Family Psychiatric History: None reported or documented SOCIAL HISTORY Unable to obtain REVIEW OF SYSTEMS Constitutional: Negative for weight loss ENT: Negative for stridor Respiratory: Negative for cough or hemoptysis All other systems reviewed and are negative MENTAL STATUS EXAMINATION General Appearance and Behavior: Age appropriate, good hygiene, wearing appropriate clothes, good eye contact, intrusive Cooperation: Participating/engaged, but Guarded Psychomotor Behavior: Psychomotor normal Mood: Euphoric, "beautiful" Affect and affective range: labile Thought Process: illogical Thought Content: responding to internal stimuli, delusions Speech: nonsensical, flight of ideas Suicidal Ideation: Yes Homicidal Ideation: Denies HI Hallucinations: Auditory Impulse Control: Impaired Insight and Judgment: Poor insight and judgment Memory: Limited Attention: Divided Orientation: Alert, oriented Assessment and Plan Schizophrenia Treatment Plan Continue current meds Patient admitted for inpatient psychiatric evaluation, medication adjustment and close monitoring The patient's behavior, mood, sleep and appetite will be closely monitored. Patient enrolled in individual and group therapeutic sessions and encouraged to attend. Patient provided with a safe and structured environment. Patient's physical health needs will be addressed by the Hospitalist. Hospitalist Consulted Labs including CBC, CMP, Lipid profile and Hemoglobin A1C levels ordered for baseline reference Social Assessment will be completed and the Lithographic Plate Maker will work with patient and family to ensure a suitable and safe disposition Medication adjustment will be made as clinically indicated Increased Abilify 10mg po daily Continued home meds Usual Wellness Baptism/Preservation: - Start Trazodone 50 mg po QHS & 50 mg po QHS PRN between 10 PM & 2 AM for insomnia - Start Melatonin 5 mg po QHS to promote circadian rhythm - Start [place]-3 for brain health, reduce impulsivity, and as adjunctive treatment for mood disorder, continue upon discharge given overall benefits. - Start B1 prophylaxis with 200 mg po for 5 days The patient agreed on the treatment plan, understood the risk, benefit, alternative treatment, potential consequence of no treatment, and gave informed consent. Estimated days: 6 Post hospital care: primary care provider, psychiatric provider Case staffed with Dr. Walters Legal Status: Voluntary Reaction to Hospitalization: Accepting Medications and Allergies Allergies Allergy/AdvReac Type Severity Reaction Status Date / Time No Known Allergies Allergy Verified 07/15/20 00:58 Home Medications Medication Instructions Recorded Confirmed Last Taken Type ARIPiprazole [Abilify TAB] 5 mg PO DAILY 07/13/20 02/22/21 Unknown History Benztropine Mesylate 1 mg PO BID 07/13/20 02/22/21 07/12/20 History hydrOXYzine PAMOATE [Vistaril] 25 mg PO TID 07/13/20 02/22/21 07/12/20 History metFORMIN [Glucophage] 500 mg PO BID 07/13/20 02/22/21 1 Day Ago History ~07/12/20 Pantoprazole [Protonix] 40 mg PO QAM 02/22/21 02/22/21 Unknown History Ramelteon 8 mg PO QHS 02/22/21 02/22/21 Unknown History Active Meds: Active Medications Acetaminophen (Acetaminophen 325 Mg Tab) 650 mg PO Q4HR PRN PRN Reason: Pain MILD(1-3)/Fever >100.5/CROWDER Al Hydrox/Mg Hydrox/Simethicone (Alum-Mag Hydroxide-Simethicone [id number]/5ml Oral Liqd 30 Ml) 30 ml PO Q4HR PRN PRN Reason: Indigestion Aripiprazole (Aripiprazole 5 Mg Tab) 5 mg PO DAILY [facility] Last Admin: 02/24/21 09:14 Dose: 5 mg Documented by: Benztropine Mesylate (Benztropine 1 Mg Tab) 1 mg PO BID [facility] Last Admin: 02/24/21 09:14 Dose: 1 mg Documented by: Divalproex Sodium (Divalproex Dr 125 Mg Tab) 125 mg PO BID [facility] Last Admin: 02/24/21 09:14 Dose: 125 mg Documented by: Hydroxyzine Pamoate (Hydroxyzine Pamoate 25 Mg Cap) 25 mg PO TID [facility] Last Admin: 02/24/21 09:13 Dose: 25 mg Documented by: Magnesium Hydroxide (Magnesium Hydroxide (Mom) Oral Liqd Udc) 30 ml PO Q12HR PRN PRN Reason: Constipation Metformin HCl (Metformin 500 Mg Tab) 500 mg PO BIDDIAB [facility] Last Admin: 02/24/21 09:14 Dose: 500 mg Documented by: Miscellaneous Medication (Ramelteon [Ramelteon]) 8 mg PO QHS [facility] Pantoprazole Sodium (Pantoprazole 40 Mg Tab) 40 mg PO QAM [facility] Last Admin: 02/24/21 09:14 Dose: 40 mg Documented by: Results - Results Labs/Vitals: Laboratory Last Values WBC 8.7 K/mm3 (4.5-11.0) 02/22/21 21:48 RBC 4.71 M/mm3 (3.65-5.03) 02/22/21 21:48 Hgb 14.0 gm/dl (11.8-15.2) 02/22/21 21:48 Hct 40.5 % (35.5-45.6) 02/22/21 21:48 MCV 86 fl (84-94) 02/22/21 21:48 MCH 30 pg (28-32) 02/22/21 21:48 MCHC 35 % (32-34) H 02/22/21 21:48 RDW 13.7 % (13.2-15.2) 02/22/21 21:48 Plt Count 197 K/mm3 (140-440) 02/22/21 21:48 Lymph % (Auto) 23.8 % (13.4-35.0) 02/22/21 21:48 [place] % (Auto) 9.2 % (0.0-7.3) H 02/22/21 21:48 Eos % (Auto) 3.3 % (0.0-4.3) 02/22/21 21:48 Baso % (Auto) 0.8 % (0.0-1.8) 02/22/21 21:48 Lymph # (Auto) 2.1 K/mm3 (1.2-5.4) 02/22/21 21:48 [place] # (Auto) 0.8 K/mm3 (0.0-0.8) 02/22/21 21:48 Eos # (Auto) 0.3 K/mm3 (0.0-0.4) 02/22/21 21:48 Baso # (Auto) 0.1 K/mm3 (0.0-0.1) 02/22/21 21:48 Seg Neutrophils % 62.9 % (40.0-70.0) 02/22/21 21:48 Seg Neutrophils # 5.4 K/mm3 (1.8-7.7) 02/22/21 21:48 Sodium 139 mmol/L (137-145) 02/22/21 21:48 Potassium 4.1 mmol/L (3.6-5.0) 02/22/21 21:48 Chloride 99.2 mmol/L (98-107) 02/22/21 21:48 Carbon Dioxide 30 mmol/L (22-30) 02/22/21 21:48 Anion Gap 14 mmol/L 02/22/21 21:48 BUN 12 mg/dL (9-20) 02/22/21 21:48 Creatinine 1.0 mg/dL (0.8-1.3) 02/22/21 21:48 Estimated GFR > 60 ml/min 02/22/21 21:48 BUN/Creatinine Ratio 12 % 02/22/21 21:48 Glucose 97 mg/dL (75-100) 02/22/21 21:48 POC Glucose 113 mg/dL (70-105) H 02/23/21 22:17 Calcium 9.0 mg/dL (8.4-10.2) 02/22/21 21:48 Urine Color Straw (Yellow) 02/22/21 Unknown Urine Turbidity Clear (Clear) 02/22/21 Unknown Urine pH 6.0 (5.0-7.0) 02/22/21 Unknown Ur Specific [place] 1.009 (1.003-1.030) 02/22/21 Unknown Urine Protein <15 mg/dl mg/dL (Negative) 02/22/21 Unknown Urine Glucose (UA) Neg mg/dL (Negative) 02/22/21 Unknown Urine Ketones Neg mg/dL (Negative) 02/22/21 Unknown Urine Blood Neg (Negative) 02/22/21 Unknown Urine Nitrite Neg (Negative) 02/22/21 Unknown Urine Bilirubin Neg (Negative) 02/22/21 Unknown Urine Urobilinogen < 2.0 mg/dL (<2.0) 02/22/21 Unknown Ur Leukocyte Esterase Neg (Negative) 02/22/21 Unknown Urine WBC (Auto) 1.0 /HPF (0.0-6.0) 02/22/21 Unknown Urine RBC (Auto) 1.0 /HPF (0.0-6.0) 02/22/21 Unknown U Epithel Cells (Auto) < 1.0 /HPF (0-13.0) 02/22/21 Unknown Urine Bacteria (Auto) 1+ /HPF (Negative) 02/22/21 Unknown Salicylates < 0.3 mg/dL (2.8-20.0) L 02/22/21 21:48 Urine Opiates Screen Presumptive negative 02/22/21 Unknown Urine Methadone Screen Presumptive negative 02/22/21 Unknown Acetaminophen 5.0 ug/mL (10.0-30.0) L 02/22/21 21:48 Ur Barbiturates Screen Presumptive negative 02/22/21 Unknown Ur Phencyclidine Scrn Presumptive negative 02/22/21 Unknown Ur Amphetamines Screen Presumptive negative 02/22/21 Unknown U Benzodiazepines Scrn Presumptive negative 02/22/21 Unknown Urine Cocaine Screen Presumptive negative 02/22/21 Unknown U Marijuana (THC) Screen Presumptive negative 02/22/21 Unknown Drugs of Abuse Note Disclamer 02/22/21 Unknown Plasma/Serum Alcohol < 0.01 % (0-0.07) 02/22/21 21:48 Coronavirus (PCR) Negative (Negative) 02/23/21 Unknown Last Vital Signs Temp 97.6 F 02/24/21 08:14 Pulse 84 02/24/21 08:14 Resp 17 02/24/21 08:14 BP 114/66 02/24/21 08:14 Pulse Ox 97 02/23/21 22:20 Physical Examination - Constitutional Vitals: Vital Signs Temp Pulse Resp BP Pulse Ox 97.6 F 84 17 114/66 97 02/24/21 08:14 02/24/21 08:14 02/24/21 08:14 02/24/21 08:14 02/23/21 22:20 Temperature -Last 24 Hours Temperature 97.6 F Temperature 98.9 F Temperature 98.9 F Temperature 98.3 F Mental Status Exam - Vital signs Last Vital Signs Temp 97.6 F 02/24/21 08:14 Pulse 84 02/24/21 08:14 Resp 17 02/24/21 08:14 BP 114/66 02/24/21 08:14 Pulse Ox 97 02/23/21 22:20 Physician Certification - Certification Statement Physician Certification Statement: This is an acknowledgement statement that ESTEE THACKER is a 55 year old M who requires inpatient psychiatric admission for treatment which could reasonably be expected to improve the patient's condition for Estimated period of time patient will need to remain in the hospital: [ ] Plan for post-hospital care: [ ]
[2021-02-24 10:00] LABS: Basophils % (Auto) 0.2 % (0.0-1.8); Eosinophils # (Auto) 0.3 K/mm3 (0.0-0.4); Eosinophils % (Auto) 3.6 % (0.0-4.3); Hematocrit 41.5 % (35.5-45.6); Hemoglobin 13.7 gm/dl (11.8-15.2); Lymphocytes # (Auto) 1.4 K/mm3 (1.2-5.4); Lymphocytes % (Auto) 20.5 % (13.4-35.0); Mean Corpuscular HGB Conc 33 % (32-34); Mean Corpuscular Volume 87 fl (84-94); Monocytes # (Auto) 0.6 K/mm3 (0.0-0.8); Monocytes % (Auto) 8.1 % (0.0-7.3); Platelet Count 201 K/mm3 (140-440); Red Blood Count 4.79 M/mm3 (3.65-5.03); Red Cell Distribution Width 13.5 % (13.2-15.2)
[2021-02-24] MEDS ORDERED: ARIPiprazole 10 MG TAB PO SCH (10:00)
[2021-02-24 10:33] LABS: Alanine Aminotransferase 9 units/L (7-56); Albumin 4.2 g/dL (3.9-5); BUN/Creatinine Ratio 9; Blood Urea Nitrogen 9 mg/dL (9-20); Calcium 9.4 mg/dL (8.4-10.2); HDL Cholesterol 58 mg/dL (40-59); Hemolysis Index 1; LDL Cholesterol,Direct 64 mg/dL (50-130)
--- NOTE | 2021-02-25 08:09 | Progress Note ---
Subjective Date of service: 02/25/21 Principal diagnosis: Schizophrenia Subjective Comment: Per nurse Note: Patient compliant with medication, appetite good snack provided, patient was noted to be in activity room watching the TV, patient presents with bazaar grandiose ideas verbalizing thoughts of his father being a jose david and yuliya fo expert, patient has some boundary issues staff having to be redirect patient about proximities, no complaints verbalized at this time, will continue to monitor. Nurse note also states the patient is observed talking to himself. The patient was seen today. He is sitting in the dayroom. He is still delusional but less psychotic than yesterday. He says he is seeing "men holding guns." The patient states he feels "tense." He could not really explain why he felt this way. When asking if he was suicidal, he states "I don't think I am." He says he slept okay. Reasons for continued inpatient treatment: The patient continues to have delusions and respond to internal stimuli. REVIEW OF SYSTEMS Constitutional: Negative for weight loss ENT: Negative for stridor Respiratory: Negative for cough or hemoptysis All other systems reviewed and are negative MENTAL STATUS EXAMINATION General Appearance and Behavior: Age appropriate, good hygiene, wearing appropriate clothes, good eye contact, intrusive Cooperation: Participating/engaged, but Guarded Psychomotor Behavior: Psychomotor normal Mood: "tense" Affect and affective range: Congruent with stated mood Thought Process: illogical Thought Content: responding to internal stimuli, delusions Speech: normal tone and pace Suicidal Ideation: Unclear Homicidal Ideation: Denies HI Hallucinations: Auditory, visual Impulse Control: Impaired Insight and Judgment: Poor insight and judgment Memory: Limited Attention: Divided Orientation: Alert, oriented Assessment and Plan Schizophrenia Treatment Plan Patient admitted for inpatient psychiatric evaluation, medication adjustment and close monitoring The patient's behavior, mood, sleep and appetite will be closely monitored. Patient enrolled in individual and group therapeutic sessions and encouraged to attend. Patient provided with a safe and structured environment. Patient's physical health needs will be addressed by the Hospitalist. Hospitalist Consulted Labs including CBC, CMP, Lipid profile and Hemoglobin A1C levels ordered for baseline reference Social Assessment will be completed and the Print Production Coordinator will work with patient and family to ensure a suitable and safe disposition Medication adjustment will be made as clinically indicated Increased Abilify 15mg po daily Increased Depakote DR 250mg po BID Usual Wellness Judaism/Preservation: - Start Trazodone 50 mg po QHS & 50 mg po QHS PRN between 10 PM & 2 AM for insomnia - Start Melatonin 5 mg po QHS to promote circadian rhythm - Start [place]-3 for brain health, reduce impulsivity, and as adjunctive treatment for mood disorder, continue upon discharge given overall benefits. - Start B1 prophylaxis with 200 mg po for 5 days The patient agreed on the treatment plan, understood the risk, benefit, alternative treatment, potential consequence of no treatment, and gave informed consent. Estimated days: 4 Post hospital care: primary care provider, psychiatric provider Case staffed with Dr. Walters Medications and Allergies Allergies Allergy/AdvReac Type Severity Reaction Status Date / Time No Known Allergies Allergy Verified 07/15/20 00:58 Home Medications Medication Instructions Recorded Confirmed Last Taken Type ARIPiprazole [Abilify TAB] 5 mg PO DAILY 07/13/20 02/22/21 Unknown History Benztropine Mesylate 1 mg PO BID 07/13/20 02/22/21 07/12/20 History hydrOXYzine PAMOATE [Vistaril] 25 mg PO TID 07/13/20 02/22/21 07/12/20 History metFORMIN [Glucophage] 500 mg PO BID 07/13/20 02/22/21 1 Day Ago History ~07/12/20 Pantoprazole [Protonix] 40 mg PO QAM 02/22/21 02/22/21 Unknown History Ramelteon 8 mg PO QHS 02/22/21 02/22/21 Unknown History Active Meds: Active Medications Acetaminophen (Acetaminophen 325 Mg Tab) 650 mg PO Q4HR PRN PRN Reason: Pain MILD(1-3)/Fever >100.5/CROWDER Al Hydrox/Mg Hydrox/Simethicone (Alum-Mag Hydroxide-Simethicone [id number]/5ml Oral Liqd 30 Ml) 30 ml PO Q4HR PRN PRN Reason: Indigestion Aripiprazole (Aripiprazole 10 Mg Tab) 10 mg PO QDAY [facility] Last Admin: 02/24/21 10:54 Dose: 10 mg Documented by: Benztropine Mesylate (Benztropine 1 Mg Tab) 1 mg PO BID [facility] Last Admin: 02/24/21 21:21 Dose: 1 mg Documented by: Divalproex Sodium (Divalproex Dr 125 Mg Tab) 125 mg PO BID [facility] Last Admin: 02/24/21 21:22 Dose: 125 mg Documented by: Hydroxyzine Pamoate (Hydroxyzine Pamoate 25 Mg Cap) 25 mg PO TID [facility] Last Admin: 02/24/21 20:59 Dose: 25 mg Documented by: Magnesium Hydroxide (Magnesium Hydroxide (Mom) Oral Liqd Udc) 30 ml PO Q12HR PRN PRN Reason: Constipation Metformin HCl (Metformin 500 Mg Tab) 500 mg PO BIDDIAB [facility] Last Admin: 02/24/21 16:43 Dose: 500 mg Documented by: Miscellaneous Medication (Ramelteon [Ramelteon]) 8 mg PO QHS [facility] Pantoprazole Sodium (Pantoprazole 40 Mg Tab) 40 mg PO QAM [facility] Last Admin: 02/24/21 09:14 Dose: 40 mg Documented by: Results - Results Labs/Vitals: Laboratory Last Values WBC 7.1 K/mm3 (4.5-11.0) 02/24/21 09:46 RBC 4.79 M/mm3 (3.65-5.03) 02/24/21 09:46 Hgb 13.7 gm/dl (11.8-15.2) 02/24/21 09:46 Hct 41.5 % (35.5-45.6) 02/24/21 09:46 MCV 87 fl (84-94) 02/24/21 09:46 MCH 29 pg (28-32) 02/24/21 09:46 MCHC 33 % (32-34) 02/24/21 09:46 RDW 13.5 % (13.2-15.2) 02/24/21 09:46 Plt Count 201 K/mm3 (140-440) 02/24/21 09:46 Lymph % (Auto) 20.5 % (13.4-35.0) 02/24/21 09:46 Divide % (Auto) 8.1 % (0.0-7.3) H 02/24/21 09:46 Eos % (Auto) 3.6 % (0.0-4.3) 02/24/21 09:46 Baso % (Auto) 0.2 % (0.0-1.8) 02/24/21 09:46 Lymph # (Auto) 1.4 K/mm3 (1.2-5.4) 02/24/21 09:46 [place] # (Auto) 0.6 K/mm3 (0.0-0.8) 02/24/21 09:46 Eos # (Auto) 0.3 K/mm3 (0.0-0.4) 02/24/21 09:46 Baso # (Auto) 0.0 K/mm3 (0.0-0.1) 02/24/21 09:46 Seg Neutrophils % 67.6 % (40.0-70.0) 02/24/21 09:46 Seg Neutrophils # 4.8 K/mm3 (1.8-7.7) 02/24/21 09:46 Sodium 139 mmol/L (137-145) 02/24/21 09:46 Potassium 4.3 mmol/L (3.6-5.0) 02/24/21 09:46 Chloride 104.0 mmol/L (98-107) 02/24/21 09:46 Carbon Dioxide 25 mmol/L (22-30) 02/24/21 09:46 Anion Gap 14 mmol/L 02/24/21 09:46 BUN 9 mg/dL (9-20) 02/24/21 09:46 Creatinine 1.0 mg/dL (0.8-1.3) 02/24/21 09:46 Estimated GFR > 60 ml/min 02/24/21 09:46 BUN/Creatinine Ratio 9 % 02/24/21 09:46 Glucose 81 mg/dL (75-100) 02/24/21 09:46 POC Glucose 83 mg/dL (70-105) 02/24/21 11:38 Hemoglobin A1c 5.7 % (4-6) 02/24/21 09:46 Calcium 9.4 mg/dL (8.4-10.2) 02/24/21 09:46 Total Bilirubin 0.20 mg/dL (0.1-1.2) 02/24/21 09:46 AST 16 units/L (5-40) 02/24/21 09:46 ALT 9 units/L (7-56) 02/24/21 09:46 Alkaline Phosphatase 62 units/L (35-129) 02/24/21 09:46 Total Protein 7.1 g/dL (6.3-8.2) 02/24/21 09:46 Albumin 4.2 g/dL (3.9-5) 02/24/21 09:46 Albumin/Globulin Ratio 1.4 % 02/24/21 09:46 Triglycerides 84 mg/dL (2-149) 02/24/21 09:46 Cholesterol 128 mg/dL (50-199) 02/24/21 09:46 LDL Cholesterol Direct 64 mg/dL (50-130) 02/24/21 09:46 HDL Cholesterol 58 mg/dL (40-59) 02/24/21 09:46 Cholesterol/HDL Ratio 2.20 % 02/24/21 09:46 TSH 1.590 mlU/mL (0.270-4.200) 02/24/21 09:46 Urine Color Straw (Yellow) 02/22/21 Unknown Urine Turbidity Clear (Clear) 02/22/21 Unknown Urine pH 6.0 (5.0-7.0) 02/22/21 Unknown Ur Specific [place] 1.009 (1.003-1.030) 02/22/21 Unknown Urine Protein <15 mg/dl mg/dL (Negative) 02/22/21 Unknown Urine Glucose (UA) Neg mg/dL (Negative) 02/22/21 Unknown Urine Ketones Neg mg/dL (Negative) 02/22/21 Unknown Urine Blood Neg (Negative) 02/22/21 Unknown Urine Nitrite Neg (Negative) 02/22/21 Unknown Urine Bilirubin Neg (Negative) 02/22/21 Unknown Urine Urobilinogen < 2.0 mg/dL (<2.0) 02/22/21 Unknown Ur Leukocyte Esterase Neg (Negative) 02/22/21 Unknown Urine WBC (Auto) 1.0 /HPF (0.0-6.0) 02/22/21 Unknown Urine RBC (Auto) 1.0 /HPF (0.0-6.0) 02/22/21 Unknown U Epithel Cells (Auto) < 1.0 /HPF (0-13.0) 02/22/21 Unknown Urine Bacteria (Auto) 1+ /HPF (Negative) 02/22/21 Unknown Salicylates < 0.3 mg/dL (2.8-20.0) L 02/22/21 21:48 Urine Opiates Screen Presumptive negative 02/22/21 Unknown Urine Methadone Screen Presumptive negative 02/22/21 Unknown Acetaminophen 5.0 ug/mL (10.0-30.0) L 02/22/21 21:48 Ur Barbiturates Screen Presumptive negative 02/22/21 Unknown Ur Phencyclidine Scrn Presumptive negative 02/22/21 Unknown Ur Amphetamines Screen Presumptive negative 02/22/21 Unknown U Benzodiazepines Scrn Presumptive negative 02/22/21 Unknown Urine Cocaine Screen Presumptive negative 02/22/21 Unknown U Marijuana (THC) Screen Presumptive negative 02/22/21 Unknown Drugs of Abuse Note Disclamer 02/22/21 Unknown Plasma/Serum Alcohol < 0.01 % (0-0.07) 02/22/21 21:48 Coronavirus (PCR) Negative (Negative) 02/23/21 Unknown Last Vital Signs Temp 97.6 F 02/24/21 08:14 Pulse 84 02/24/21 08:14 Resp 17 02/24/21 08:14 BP 114/66 02/24/21 08:14 Pulse Ox 97 02/23/21 22:20
[2021-02-25] MEDS: BENZTROPINE 1 MG TAB PO SCH ×2 (09:09→21:13)
[2021-02-25] MEDS: metFORMIN 500 MG TAB PO SCH ×2 (09:09→17:12)
[2021-02-25] MEDS: hydrOXYzine PAMOATE 25 MG CAP PO SCH ×3 (09:09→21:12)
[2021-02-25] MEDS: PANTOPRAZOLE 40 MG TAB PO SCH (09:10)
[2021-02-25] MEDS ORDERED: ARIPiprazole 15 MG TAB PO SCH (10:00)
[2021-02-25] MEDS: DIVALPROEX DR 250 MG TAB PO SCH ×2 (10:34→21:13)
[2021-02-26] MEDS: metFORMIN 500 MG TAB PO SCH ×2 (07:55→17:14)
[2021-02-26] MEDS: hydrOXYzine PAMOATE 25 MG CAP PO SCH ×3 (07:55→21:22)
--- NOTE | 2021-02-26 08:20 | Progress Note ---
Subjective Date of service: 02/26/21 Principal diagnosis: Schizophrenia Subjective Comment: Per nurse Note: Last evening the patient spent most of his time in the activity room. He presents as hyperverbal and grandiose. He continues to focus on things related to the . He makes statements that he is the only one who can save the President. He is observed talking to himself. He denies si/hi. His appetite is good. He was medication compliant. The patient was seen today. He is sitting in the dayroom. He is thanking me for "providing him breakfast." He is having grandiose delusions. He says he was there when they assassinated [employer] Peace. He also says he knows the [employer]. The patient endorses suicidal thoughts. He says "yes, I miss my father he last year and my mother in my arms." Reasons for continued inpatient treatment: The patient continues to have delusions and respond to internal stimuli. REVIEW OF SYSTEMS Constitutional: Negative for weight loss ENT: Negative for stridor Respiratory: Negative for cough or hemoptysis All other systems reviewed and are negative MENTAL STATUS EXAMINATION General Appearance and Behavior: Age appropriate, good hygiene, wearing appropriate clothes, good eye contact, intrusive Cooperation: Participating/engaged, but Guarded Psychomotor Behavior: Psychomotor normal Mood: "tense" Affect and affective range: Congruent with stated mood Thought Process: illogical Thought Content: responding to internal stimuli, delusions Speech: normal tone and pace Suicidal Ideation: Unclear Homicidal Ideation: Denies HI Hallucinations: Auditory, visual Impulse Control: Impaired Insight and Judgment: Poor insight and judgment Memory: Limited Attention: Divided Orientation: Alert, oriented Assessment and Plan Schizophrenia Treatment Plan Patient admitted for inpatient psychiatric evaluation, medication adjustment and close monitoring The patient's behavior, mood, sleep and appetite will be closely monitored. Patient enrolled in individual and group therapeutic sessions and encouraged to attend. Patient provided with a safe and structured environment. Patient's physical health needs will be addressed by the Hospitalist. Hospitalist Consulted Labs including CBC, CMP, Lipid profile and Hemoglobin A1C levels ordered for baseline reference Social Assessment will be completed and the Oenologist will work with patient and family to ensure a suitable and safe disposition Medication adjustment will be made as clinically indicated Increased Abilify 20mg po daily Increased Depakote DR 250mg po TID Usual Wellness Temple/Preservation: - Start Trazodone 50 mg po QHS & 50 mg po QHS PRN between 10 PM & 2 AM for insomnia - Start Melatonin 5 mg po QHS to promote circadian rhythm - Start [place]-3 for brain health, reduce impulsivity, and as adjunctive treatment for mood disorder, continue upon discharge given overall benefits. - Start B1 prophylaxis with 200 mg po for 5 days The patient agreed on the treatment plan, understood the risk, benefit, alternative treatment, potential consequence of no treatment, and gave informed consent. Estimated days: 3 Post hospital care: primary care provider, psychiatric provider Case staffed with Dr. Walters Medications and Allergies Allergies Allergy/AdvReac Type Severity Reaction Status Date / Time No Known Allergies Allergy Verified 07/15/20 00:58 Home Medications Medication Instructions Recorded Confirmed Last Taken Type ARIPiprazole [Abilify TAB] 5 mg PO DAILY 07/13/20 02/22/21 Unknown History Benztropine Mesylate 1 mg PO BID 07/13/20 02/22/21 07/12/20 History hydrOXYzine PAMOATE [Vistaril] 25 mg PO TID 07/13/20 02/22/21 07/12/20 History metFORMIN [Glucophage] 500 mg PO BID 07/13/20 02/22/21 1 Day Ago History ~07/12/20 Pantoprazole [Protonix] 40 mg PO QAM 02/22/21 02/22/21 Unknown History Ramelteon 8 mg PO QHS 02/22/21 02/22/21 Unknown History Active Meds: Active Medications Acetaminophen (Acetaminophen 325 Mg Tab) 650 mg PO Q4HR PRN PRN Reason: Pain MILD(1-3)/Fever >100.5/CROWDER Al Hydrox/Mg Hydrox/Simethicone (Alum-Mag Hydroxide-Simethicone [phone]/5ml Oral Liqd 30 Ml) 30 ml PO Q4HR PRN PRN Reason: Indigestion Aripiprazole (Aripiprazole 15 Mg Tab) 15 mg PO QDAY [facility] Last Admin: 02/25/21 10:34 Dose: 15 mg Documented by: Benztropine Mesylate (Benztropine 1 Mg Tab) 1 mg PO BID [facility] Last Admin: 02/25/21 21:13 Dose: 1 mg Documented by: Divalproex Sodium (Divalproex Dr 250 Mg Tab) 250 mg PO BID [facility] Last Admin: 02/25/21 21:13 Dose: 250 mg Documented by: Hydroxyzine Pamoate (Hydroxyzine Pamoate 25 Mg Cap) 25 mg PO TID [facility] Last Admin: 02/26/21 07:55 Dose: 25 mg Documented by: Magnesium Hydroxide (Magnesium Hydroxide (Mom) Oral Liqd Udc) 30 ml PO Q12HR PRN PRN Reason: Constipation Metformin HCl (Metformin 500 Mg Tab) 500 mg PO BIDDIAB [facility] Last Admin: 02/26/21 07:55 Dose: 500 mg Documented by: Miscellaneous Medication (Ramelteon [Ramelteon]) 8 mg PO QHS [facility] Pantoprazole Sodium (Pantoprazole 40 Mg Tab) 40 mg PO QAM [facility] Last Admin: 02/25/21 09:10 Dose: 40 mg Documented by: Results - Results Labs/Vitals: Laboratory Last Values WBC 7.1 K/mm3 (4.5-11.0) 02/24/21 09:46 RBC 4.79 M/mm3 (3.65-5.03) 02/24/21 09:46 Hgb 13.7 gm/dl (11.8-15.2) 02/24/21 09:46 Hct 41.5 % (35.5-45.6) 02/24/21 09:46 MCV 87 fl (84-94) 02/24/21 09:46 MCH 29 pg (28-32) 02/24/21 09:46 MCHC 33 % (32-34) 02/24/21 09:46 RDW 13.5 % (13.2-15.2) 02/24/21 09:46 Plt Count 201 K/mm3 (140-440) 02/24/21 09:46 Lymph % (Auto) 20.5 % (13.4-35.0) 02/24/21 09:46 [place] % (Auto) 8.1 % (0.0-7.3) H 02/24/21 09:46 Eos % (Auto) 3.6 % (0.0-4.3) 02/24/21 09:46 Baso % (Auto) 0.2 % (0.0-1.8) 02/24/21 09:46 Lymph # (Auto) 1.4 K/mm3 (1.2-5.4) 02/24/21 09:46 [place] # (Auto) 0.6 K/mm3 (0.0-0.8) 02/24/21 09:46 Eos # (Auto) 0.3 K/mm3 (0.0-0.4) 02/24/21 09:46 Baso # (Auto) 0.0 K/mm3 (0.0-0.1) 02/24/21 09:46 Seg Neutrophils % 67.6 % (40.0-70.0) 02/24/21 09:46 Seg Neutrophils # 4.8 K/mm3 (1.8-7.7) 02/24/21 09:46 Sodium 139 mmol/L (137-145) 02/24/21 09:46 Potassium 4.3 mmol/L (3.6-5.0) 02/24/21 09:46 Chloride 104.0 mmol/L (98-107) 02/24/21 09:46 Carbon Dioxide 25 mmol/L (22-30) 02/24/21 09:46 Anion Gap 14 mmol/L 02/24/21 09:46 BUN 9 mg/dL (9-20) 02/24/21 09:46 Creatinine 1.0 mg/dL (0.8-1.3) 02/24/21 09:46 Estimated GFR > 60 ml/min 02/24/21 09:46 BUN/Creatinine Ratio 9 % 02/24/21 09:46 Glucose 81 mg/dL (75-100) 02/24/21 09:46 POC Glucose 83 mg/dL (70-105) 02/24/21 11:38 Hemoglobin A1c 5.7 % (4-6) 02/24/21 09:46 Calcium 9.4 mg/dL (8.4-10.2) 02/24/21 09:46 Total Bilirubin 0.20 mg/dL (0.1-1.2) 02/24/21 09:46 AST 16 units/L (5-40) 02/24/21 09:46 ALT 9 units/L (7-56) 02/24/21 09:46 Alkaline Phosphatase 62 units/L (35-129) 02/24/21 09:46 Total Protein 7.1 g/dL (6.3-8.2) 02/24/21 09:46 Albumin 4.2 g/dL (3.9-5) 02/24/21 09:46 Albumin/Globulin Ratio 1.4 % 02/24/21 09:46 Triglycerides 84 mg/dL (2-149) 02/24/21 09:46 Cholesterol 128 mg/dL (50-199) 02/24/21 09:46 LDL Cholesterol Direct 64 mg/dL (50-130) 02/24/21 09:46 HDL Cholesterol 58 mg/dL (40-59) 02/24/21 09:46 Cholesterol/HDL Ratio 2.20 % 02/24/21 09:46 TSH 1.590 mlU/mL (0.270-4.200) 02/24/21 09:46 Urine Color Straw (Yellow) 02/22/21 Unknown Urine Turbidity Clear (Clear) 02/22/21 Unknown Urine pH 6.0 (5.0-7.0) 02/22/21 Unknown Ur Specific [place] 1.009 (1.003-1.030) 02/22/21 Unknown Urine Protein <15 mg/dl mg/dL (Negative) 02/22/21 Unknown Urine Glucose (UA) Neg mg/dL (Negative) 02/22/21 Unknown Urine Ketones Neg mg/dL (Negative) 02/22/21 Unknown Urine Blood Neg (Negative) 02/22/21 Unknown Urine Nitrite Neg (Negative) 02/22/21 Unknown Urine Bilirubin Neg (Negative) 02/22/21 Unknown Urine Urobilinogen < 2.0 mg/dL (<2.0) 02/22/21 Unknown Ur Leukocyte Esterase Neg (Negative) 02/22/21 Unknown Urine WBC (Auto) 1.0 /HPF (0.0-6.0) 02/22/21 Unknown Urine RBC (Auto) 1.0 /HPF (0.0-6.0) 02/22/21 Unknown U Epithel Cells (Auto) < 1.0 /HPF (0-13.0) 02/22/21 Unknown Urine Bacteria (Auto) 1+ /HPF (Negative) 02/22/21 Unknown Salicylates < 0.3 mg/dL (2.8-20.0) L 02/22/21 21:48 Urine Opiates Screen Presumptive negative 02/22/21 Unknown Urine Methadone Screen Presumptive negative 02/22/21 Unknown Acetaminophen 5.0 ug/mL (10.0-30.0) L 02/22/21 21:48 Ur Barbiturates Screen Presumptive negative 02/22/21 Unknown Ur Phencyclidine Scrn Presumptive negative 02/22/21 Unknown Ur Amphetamines Screen Presumptive negative 02/22/21 Unknown U Benzodiazepines Scrn Presumptive negative 02/22/21 Unknown Urine Cocaine Screen Presumptive negative 02/22/21 Unknown U Marijuana (THC) Screen Presumptive negative 02/22/21 Unknown Drugs of Abuse Note Disclamer 02/22/21 Unknown Plasma/Serum Alcohol < 0.01 % (0-0.07) 02/22/21 21:48 Coronavirus (PCR) Negative (Negative) 02/23/21 Unknown Last Vital Signs Temp 98.1 F 02/25/21 19:34 Pulse 72 02/25/21 19:34 Resp 16 02/25/21 19:34 BP 124/69 02/25/21 19:34 Pulse Ox 96 02/25/21 19:34
[2021-02-26] MEDS: PANTOPRAZOLE 40 MG TAB PO SCH (09:18)
[2021-02-26] MEDS: BENZTROPINE 1 MG TAB PO SCH ×2 (09:18→21:21)
[2021-02-26] MEDS: ARIPiprazole 10 MG TAB PO SCH (09:18)
[2021-02-26] MEDS: DIVALPROEX DR 250 MG TAB PO SCH ×2 (14:29→21:21)
[2021-02-27] MEDS: metFORMIN 500 MG TAB PO SCH ×2 (07:49→16:35)
[2021-02-27] MEDS: DIVALPROEX DR 250 MG TAB PO SCH (07:50)
[2021-02-27] MEDS: hydrOXYzine PAMOATE 25 MG CAP PO SCH (07:58)
--- NOTE | 2021-02-27 07:58 | Consultation ---
History of Present Illness - Reason for Consult Consult date: 02/27/21 DM Requesting physician: NHUNG UNDERWOOD - History of Present Illness Patient is a 55-year-old [place] male with past medical history, DM, schizophrenia admitted with possible hallucination and psychosis. Patient tell me that he has had chronic abdominal pain since he was a child and with nausea a nd vomiting. He is a poor historian how ever no vomiting has been noted here. he is unable to give me any further information about his Diabetes. Nursing staff reports no new complaints. Patient denies any chest pain denies any fever. Past History Past Medical History: diabetes, other (Chronic abdominal pain) Past Surgical History: No surgical history Social history: no significant social history Family history: no significant family history Medications and Allergies Allergies Allergy/AdvReac Type Severity Reaction Status Date / Time No Known Allergies Allergy Verified 07/15/20 00:58 Home Medications Medication Instructions Recorded Confirmed Last Taken Type ARIPiprazole [Abilify TAB] 5 mg PO DAILY 07/13/20 02/22/21 Unknown History Benztropine Mesylate 1 mg PO BID 07/13/20 02/22/21 07/12/20 History hydrOXYzine PAMOATE [Vistaril] 25 mg PO TID 07/13/20 02/22/21 07/12/20 History metFORMIN [Glucophage] 500 mg PO BID 07/13/20 02/22/21 1 Day Ago History ~07/12/20 Pantoprazole [Protonix] 40 mg PO QAM 02/22/21 02/22/21 Unknown History Ramelteon 8 mg PO QHS 02/22/21 02/22/21 Unknown History Active Meds: Active Medications Acetaminophen (Acetaminophen 325 Mg Tab) 650 mg PO Q4HR PRN PRN Reason: Pain MILD(1-3)/Fever >100.5/CROWDER Al Hydrox/Mg Hydrox/Simethicone (Alum-Mag Hydroxide-Simethicone [phone]/5ml Oral Liqd 30 Ml) 30 ml PO Q4HR PRN PRN Reason: Indigestion Aripiprazole (Aripiprazole 10 Mg Tab) 20 mg PO QDAY [facility] Last Admin: 02/26/21 09:18 Dose: 20 mg Documented by: Benztropine Mesylate (Benztropine 1 Mg Tab) 1 mg PO BID [facility] Last Admin: 02/26/21 21:21 Dose: 1 mg Documented by: Divalproex Sodium (Divalproex Dr 250 Mg Tab) 250 mg PO TID [facility] Last Admin: 02/27/21 07:50 Dose: 250 mg Documented by: Hydroxyzine Pamoate (Hydroxyzine Pamoate 25 Mg Cap) 25 mg PO TID [facility] Last Admin: 02/27/21 07:58 Dose: 25 mg Documented by: Magnesium Hydroxide (Magnesium Hydroxide (Mom) Oral Liqd Udc) 30 ml PO Q12HR PRN PRN Reason: Constipation Metformin HCl (Metformin 500 Mg Tab) 500 mg PO BIDDIAB [facility] Last Admin: 02/27/21 07:49 Dose: 500 mg Documented by: Miscellaneous Medication (Ramelteon [Ramelteon]) 8 mg PO QHS [facility] Pantoprazole Sodium (Pantoprazole 40 Mg Tab) 40 mg PO QAM [facility] Last Admin: 02/26/21 09:18 Dose: 40 mg Documented by: Review of Systems All systems: negative Constitutional: no weight gain, no fever, no chills, no sweats Musculoskeletal: no neck pain, no low back pain Integumentary: no pruritis, no wounds Psychiatric: hallucinations Endocrine: no cold intolerance, no heat intolerance, no polyphagia, no excessive sweating Exam - Physical Exam Narrative exam: VITAL SIGNS: Reviewed. GENERAL: The patient appears normally developed, Vital signs as documented. HEAD: No signs of head trauma. EYES: Pupils are equal. Extraocular motions intact. EARS: Hearing grossly intact. MOUTH: Oropharynx is normal. NECK: No adenopathy, no JVD. CHEST: Chest with clear breath sounds bilaterally. No wheezes, rales, or rhonchi. CARDIAC: Regular rate and rhythm. S1 and S2, without murmurs, gallops, or rubs. VASCULAR: No Edema. Peripheral pulses normal and equal in all extremities. ABDOMEN: Soft, non tender and non distended. No rebound or guarding, and no masses palpated. Bowel Sounds normal. MUSCULOSKELETAL: Good range of motion of all major joints. Extremities without clubbing, cyanosis or edema. NEUROLOGIC EXAM: Alert and oriented x 3 although often tangential thinking. No focal sensory or strength deficits. Speech normal. Follows commands. PSYCHIATRIC: Mood normal. SKIN: detail exam as documented in skin assessment - Constitutional Vitals: Temp Pulse Resp BP Pulse Ox 98.5 F 67 18 102/72 96 02/26/21 19:41 02/26/21 19:41 02/26/21 19:41 02/26/21 19:41 02/26/21 19:41 Results - Labs CBC & Chem 7: 02/24/21 09:46 02/24/21 09:46 Assessment and Plan Patient is a 55-year-old [place] male with past medical history, DM, schizophrenia admitted with possible hallucination and psychosis. Patient tell me that he has had chronic abdominal pain since he was a child and with nausea and vomiting. He is a poor historian how ever no vomiting has been noted here. he is unable to give me any further information about his Diabetes. Nursing staff reports no new complaints. Patient denies any chest pain denies any fever. Diabetes mellitus Abdominal pain chronic with nausea vomiting Schizophrenia Hallucination Plan Continue supportive care. Continue Metformin for DM management We will add as needed Zofran Continue PPI Outpatient GI evaluation Thank you for allowing us take part in the care of your patient as an information become available more therapeutic and diagnostic measures need to be implemented
--- NOTE | 2021-02-27 08:32 | Progress Note ---
Subjective Date of service: 02/27/21 Principal diagnosis: Schizophrenia Subjective Comment: Per Nurse note: Last evening the patient paced on the unit at times. 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 His speech is pressured and he is hyperverbal. He is observed talking to himself. His appetite is good. He is medication compliant. Overnight the patient rested quietly. He presents as sleeping 8 hours. Will continue to monitor patient for safety. Anthony was seen today in the day room and he continues to present with delusions. 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 When asked about suicidal ideation, he states " I can't really say I will give my live for my country." He continues to endorse auditory and visual hallucinations. Reasons for continued inpatient treatment: The patient continues to have delusions and respond to internal stimuli. REVIEW OF SYSTEMS Constitutional: Negative for weight loss ENT: Negative for stridor Respiratory: Negative for cough or hemoptysis All other systems reviewed and are negative MENTAL STATUS EXAMINATION General Appearance and Behavior: Age appropriate, good hygiene, wearing appropriate clothes, good eye contact, intrusive Cooperation: Participating/engaged, but Guarded Psychomotor Behavior: Psychomotor normal Mood: tearful Affect and affective range: Congruent with stated mood Thought Process: illogical Thought Content: responding to internal stimuli, delusions Speech: normal tone and pace Suicidal Ideation: Unclear Homicidal Ideation: Denies HI Hallucinations: Auditory, visual Impulse Control: Impaired Insight and Judgment: Poor insight and judgment Memory: Limited Attention: Divided Orientation: Alert, oriented Assessment and Plan Schizophrenia Treatment Plan Patient admitted for inpatient psychiatric evaluation, medication adjustment and close monitoring The patient's behavior, mood, sleep and appetite will be closely monitored. Patient enrolled in individual and group therapeutic sessions and encouraged to attend. Patient provided with a safe and structured environment. Patient's physical health needs will be addressed by the Hospitalist. Hospitalist Consulted Labs including CBC, CMP, Lipid profile and Hemoglobin A1C levels ordered for baseline reference Social Assessment will be completed and the [employer]er will work with patient and family to ensure a suitable and safe disposition Medication adjustment will be made as clinically indicated Increased Abilify 20mg po daily Increased Depakote DR 250mg po TID Usual Wellness Confucianism/Preservation: - Start Trazodone 50 mg po QHS & 50 mg po QHS PRN between 10 PM & 2 AM for insomnia - Start Melatonin 5 mg po QHS to promote circadian rhythm - Start [place]-3 for brain health, reduce impulsivity, and as adjunctive treatment for mood disorder, continue upon discharge given overall benefits. - Start B1 prophylaxis with 200 mg po for 5 days The patient agreed on the treatment plan, understood the risk, benefit, alternative treatment, potential consequence of no treatment, and gave informed consent. Estimated days: 3 Post hospital care: primary care provider, psychiatric provider Case staffed with Dr. Walters Medications and Allergies Allergies Allergy/AdvReac Type Severity Reaction Status Date / Time No Known Allergies Allergy Verified 07/15/20 00:58 Home Medications Medication Instructions Recorded Confirmed Last Taken Type ARIPiprazole [Abilify TAB] 5 mg PO DAILY 07/13/20 02/22/21 Unknown History Benztropine Mesylate 1 mg PO BID 07/13/20 02/22/21 07/12/20 History hydrOXYzine PAMOATE [Vistaril] 25 mg PO TID 07/13/20 02/22/21 07/12/20 History metFORMIN [Glucophage] 500 mg PO BID 07/13/20 02/22/21 1 Day Ago History ~07/12/20 Pantoprazole [Protonix] 40 mg PO QAM 02/22/21 02/22/21 Unknown History Ramelteon 8 mg PO QHS 02/22/21 02/22/21 Unknown History Active Meds: Active Medications Acetaminophen (Acetaminophen 325 Mg Tab) 650 mg PO Q4HR PRN PRN Reason: Pain MILD(1-3)/Fever >100.5/CROWDER Al Hydrox/Mg Hydrox/Simethicone (Alum-Mag Hydroxide-Simethicone [phone]/5ml Oral Liqd 30 Ml) 30 ml PO Q4HR PRN PRN Reason: Indigestion Aripiprazole (Aripiprazole 10 Mg Tab) 20 mg PO QDAY [facility] Last Admin: 02/26/21 09:18 Dose: 20 mg Documented by: Benztropine Mesylate (Benztropine 1 Mg Tab) 1 mg PO BID [facility] Last Admin: 02/26/21 21:21 Dose: 1 mg Documented by: Divalproex Sodium (Divalproex Dr 250 Mg Tab) 250 mg PO TID [facility] Last Admin: 02/27/21 07:50 Dose: 250 mg Documented by: Hydroxyzine Pamoate (Hydroxyzine Pamoate 25 Mg Cap) 25 mg PO TID [facility] Last Admin: 02/27/21 07:58 Dose: 25 mg Documented by: Magnesium Hydroxide (Magnesium Hydroxide (Mom) Oral Liqd Udc) 30 ml PO Q12HR PRN PRN Reason: Constipation Metformin HCl (Metformin 500 Mg Tab) 500 mg PO BIDDIAB [facility] Last Admin: 02/27/21 07:49 Dose: 500 mg Documented by: Miscellaneous Medication (Ramelteon [Ramelteon]) 8 mg PO QHS [facility] Pantoprazole Sodium (Pantoprazole 40 Mg Tab) 40 mg PO QAM [facility] Last Admin: 02/26/21 09:18 Dose: 40 mg Documented by: Results - Results Labs/Vitals: Laboratory Last Values WBC 7.1 K/mm3 (4.5-11.0) 02/24/21 09:46 RBC 4.79 M/mm3 (3.65-5.03) 02/24/21 09:46 Hgb 13.7 gm/dl (11.8-15.2) 02/24/21 09:46 Hct 41.5 % (35.5-45.6) 02/24/21 09:46 MCV 87 fl (84-94) 02/24/21 09:46 MCH 29 pg (28-32) 02/24/21 09:46 MCHC 33 % (32-34) 02/24/21 09:46 RDW 13.5 % (13.2-15.2) 02/24/21 09:46 Plt Count 201 K/mm3 (140-440) 02/24/21 09:46 Lymph % (Auto) 20.5 % (13.4-35.0) 02/24/21 09:46 [place] % (Auto) 8.1 % (0.0-7.3) H 02/24/21 09:46 Eos % (Auto) 3.6 % (0.0-4.3) 02/24/21 09:46 Baso % (Auto) 0.2 % (0.0-1.8) 02/24/21 09:46 Lymph # (Auto) 1.4 K/mm3 (1.2-5.4) 02/24/21 09:46 [place] # (Auto) 0.6 K/mm3 (0.0-0.8) 02/24/21 09:46 Eos # (Auto) 0.3 K/mm3 (0.0-0.4) 02/24/21 09:46 Baso # (Auto) 0.0 K/mm3 (0.0-0.1) 02/24/21 09:46 Seg Neutrophils % 67.6 % (40.0-70.0) 02/24/21 09:46 Seg Neutrophils # 4.8 K/mm3 (1.8-7.7) 02/24/21 09:46 Sodium 139 mmol/L (137-145) 02/24/21 09:46 Potassium 4.3 mmol/L (3.6-5.0) 02/24/21 09:46 Chloride 104.0 mmol/L (98-107) 02/24/21 09:46 Carbon Dioxide 25 mmol/L (22-30) 02/24/21 09:46 Anion Gap 14 mmol/L 02/24/21 09:46 BUN 9 mg/dL (9-20) 02/24/21 09:46 Creatinine 1.0 mg/dL (0.8-1.3) 02/24/21 09:46 Estimated GFR > 60 ml/min 02/24/21 09:46 BUN/Creatinine Ratio 9 % 02/24/21 09:46 Glucose 81 mg/dL (75-100) 02/24/21 09:46 POC Glucose 83 mg/dL (70-105) 02/24/21 11:38 Hemoglobin A1c 5.7 % (4-6) 02/24/21 09:46 Calcium 9.4 mg/dL (8.4-10.2) 02/24/21 09:46 Total Bilirubin 0.20 mg/dL (0.1-1.2) 02/24/21 09:46 AST 16 units/L (5-40) 02/24/21 09:46 ALT 9 units/L (7-56) 02/24/21 09:46 Alkaline Phosphatase 62 units/L (35-129) 02/24/21 09:46 Total Protein 7.1 g/dL (6.3-8.2) 02/24/21 09:46 Albumin 4.2 g/dL (3.9-5) 02/24/21 09:46 Albumin/Globulin Ratio 1.4 % 02/24/21 09:46 Triglycerides 84 mg/dL (2-149) 02/24/21 09:46 Cholesterol 128 mg/dL (50-199) 02/24/21 09:46 LDL Cholesterol Direct 64 mg/dL (50-130) 02/24/21 09:46 HDL Cholesterol 58 mg/dL (40-59) 02/24/21 09:46 Cholesterol/HDL Ratio 2.20 % 02/24/21 09:46 TSH 1.590 mlU/mL (0.270-4.200) 02/24/21 09:46 Urine Color Straw (Yellow) 02/22/21 Unknown Urine Turbidity Clear (Clear) 02/22/21 Unknown Urine pH 6.0 (5.0-7.0) 02/22/21 Unknown Ur Specific [place] 1.009 (1.003-1.030) 02/22/21 Unknown Urine Protein <15 mg/dl mg/dL (Negative) 02/22/21 Unknown Urine Glucose (UA) Neg mg/dL (Negative) 02/22/21 Unknown Urine Ketones Neg mg/dL (Negative) 02/22/21 Unknown Urine Blood Neg (Negative) 02/22/21 Unknown Urine Nitrite Neg (Negative) 02/22/21 Unknown Urine Bilirubin Neg (Negative) 02/22/21 Unknown Urine Urobilinogen < 2.0 mg/dL (<2.0) 02/22/21 Unknown Ur Leukocyte Esterase Neg (Negative) 02/22/21 Unknown Urine WBC (Auto) 1.0 /HPF (0.0-6.0) 02/22/21 Unknown Urine RBC (Auto) 1.0 /HPF (0.0-6.0) 02/22/21 Unknown U Epithel Cells (Auto) < 1.0 /HPF (0-13.0) 02/22/21 Unknown Urine Bacteria (Auto) 1+ /HPF (Negative) 02/22/21 Unknown Salicylates < 0.3 mg/dL (2.8-20.0) L 02/22/21 21:48 Urine Opiates Screen Presumptive negative 02/22/21 Unknown Urine Methadone Screen Presumptive negative 02/22/21 Unknown Acetaminophen 5.0 ug/mL (10.0-30.0) L 02/22/21 21:48 Ur Barbiturates Screen Presumptive negative 02/22/21 Unknown Ur Phencyclidine Scrn Presumptive negative 02/22/21 Unknown Ur Amphetamines Screen Presumptive negative 02/22/21 Unknown U Benzodiazepines Scrn Presumptive negative 02/22/21 Unknown Urine Cocaine Screen Presumptive negative 02/22/21 Unknown U Marijuana (THC) Screen Presumptive negative 02/22/21 Unknown Drugs of Abuse Note Disclamer 02/22/21 Unknown Plasma/Serum Alcohol < 0.01 % (0-0.07) 02/22/21 21:48 Coronavirus (PCR) Negative (Negative) 02/23/21 Unknown Last Vital Signs Temp 98.5 F 02/26/21 19:41 Pulse 67 02/26/21 19:41 Resp 18 02/26/21 19:41 BP 102/72 02/26/21 19:41 Pulse Ox 96 02/26/21 19:41
[2021-02-27] MEDS ORDERED: DIVALPROEX DR 250 MG TAB PO SCH (09:00)
[2021-02-27] MEDS: ARIPiprazole 10 MG TAB PO SCH (09:19)
[2021-02-27] MEDS: PANTOPRAZOLE 40 MG TAB PO SCH (09:19)
[2021-02-27] MEDS: BENZTROPINE 1 MG TAB PO SCH ×2 (09:20→21:10)
[2021-02-27] MEDS: hydrOXYzine HCL 25 MG TAB PO SCH ×2 (14:09→21:10)
[2021-02-27] MEDS: DIVALPROEX DR 500 MG TAB PO SCH (21:10)
--- NOTE | 2021-02-28 08:33 | Progress Note ---
Subjective Date of service: 02/28/21 Principal diagnosis: Schizophrenia Subjective Comment: Per nurse Note: Pt has been inappropriately loud talking to himself and others. At times, pt is nonsensical and believes he is in the preparing for war. In between groups, pt has been listening to music and responding to internal stimuli. Pt has been compliant w/ meds and cooperative w/ staff. Close monitoring continues. The patient was seen today. He is still delusional and having hallucinations, and states "I see my daddy." When asking the patient about SI thoughts, he replies "I don't know. I don't think so." He denies homicidal hallucinations. Reasons for continued inpatient treatment: The patient continues to have delusions and respond to internal stimuli. REVIEW OF SYSTEMS Constitutional: Negative for weight loss ENT: Negative for stridor Respiratory: Negative for cough or hemoptysis All other systems reviewed and are negative MENTAL STATUS EXAMINATION General Appearance and Behavior: Age appropriate, good hygiene, wearing appropriate clothes, good eye contact, intrusive Cooperation: Participating/engaged, but Guarded Psychomotor Behavior: Psychomotor normal Mood: "tense" Affect and affective range: Congruent with stated mood Thought Process: illogical Thought Content: responding to internal stimuli, delusions Speech: normal tone and pace Suicidal Ideation: Unclear Homicidal Ideation: Denies HI Hallucinations: Auditory, visual Impulse Control: Impaired Insight and Judgment: Poor insight and judgment Memory: Limited Attention: Divided Orientation: Alert, oriented Assessment and Plan Schizophrenia Treatment Plan Patient admitted for inpatient psychiatric evaluation, medication adjustment and close monitoring The patient's behavior, mood, sleep and appetite will be closely monitored. Patient enrolled in individual and group therapeutic sessions and encouraged to attend. Patient provided with a safe and structured environment. Patient's physical health needs will be addressed by the Hospitalist. Hospitalist Consulted Labs including CBC, CMP, Lipid profile and Hemoglobin A1C levels ordered for baseline reference Social Assessment will be completed and the Strategic Sourcing Manager will work with patient and family to ensure a suitable and safe disposition Medication adjustment will be made as clinically indicated Continue Abilify 20mg po daily Increased Depakote DR 500mg po BID yesterday Usual Wellness Latter Day/Preservation: - Start Trazodone 50 mg po QHS & 50 mg po QHS PRN between 10 PM & 2 AM for insomnia - Start Melatonin 5 mg po QHS to promote circadian rhythm - Start [place]-3 for brain health, reduce impulsivity, and as adjunctive treatment for mood disorder, continue upon discharge given overall benefits. - Start B1 prophylaxis with 200 mg po for 5 days The patient agreed on the treatment plan, understood the risk, benefit, alternative treatment, potential consequence of no treatment, and gave informed consent. Estimated days: 3 Post hospital care: primary care provider, psychiatric provider Case staffed with Dr. Walters Medications and Allergies Allergies Allergy/AdvReac Type Severity Reaction Status Date / Time No Known Allergies Allergy Verified 07/15/20 00:58 Home Medications Medication Instructions Recorded Confirmed Last Taken Type ARIPiprazole [Abilify TAB] 5 mg PO DAILY 07/13/20 02/22/21 Unknown History Benztropine Mesylate 1 mg PO BID 07/13/20 02/22/21 07/12/20 History hydrOXYzine PAMOATE [Vistaril] 25 mg PO TID 07/13/20 02/22/21 07/12/20 History metFORMIN [Glucophage] 500 mg PO BID 07/13/20 02/22/21 1 Day Ago History ~07/12/20 Pantoprazole [Protonix] 40 mg PO QAM 02/22/21 02/22/21 Unknown History Ramelteon 8 mg PO QHS 02/22/21 02/22/21 Unknown History Active Meds: Active Medications Acetaminophen (Acetaminophen 325 Mg Tab) 650 mg PO Q4HR PRN PRN Reason: Pain MILD(1-3)/Fever >100.5/CROWDER Al Hydrox/Mg Hydrox/Simethicone (Alum-Mag Hydroxide-Simethicone [phone]/5ml Oral Liqd 30 Ml) 30 ml PO Q4HR PRN PRN Reason: Indigestion Aripiprazole (Aripiprazole 10 Mg Tab) 20 mg PO QDAY [facility] Last Admin: 02/27/21 09:19 Dose: 20 mg Documented by: Benztropine Mesylate (Benztropine 1 Mg Tab) 1 mg PO BID [facility] Last Admin: 02/27/21 21:10 Dose: 1 mg Documented by: Divalproex Sodium (Divalproex Dr 500 Mg Tab) 500 mg PO BID [facility] Last Admin: 02/27/21 21:10 Dose: 500 mg Documented by: Hydroxyzine HCl (Hydroxyzine Hcl 25 Mg Tab) 25 mg PO TID [facility] Last Admin: 02/27/21 21:10 Dose: 25 mg Documented by: Magnesium Hydroxide (Magnesium Hydroxide (Mom) Oral Liqd Udc) 30 ml PO Q12HR PRN PRN Reason: Constipation Metformin HCl (Metformin 500 Mg Tab) 500 mg PO BIDDIAB [facility] Last Admin: 02/27/21 16:35 Dose: 500 mg Documented by: Miscellaneous Medication (Ramelteon [Ramelteon]) 8 mg PO QHS [facility] Pantoprazole Sodium (Pantoprazole 40 Mg Tab) 40 mg PO QAM [facility] Last Admin: 02/27/21 09:19 Dose: 40 mg Documented by: Results - Results Labs/Vitals: Laboratory Last Values WBC 7.1 K/mm3 (4.5-11.0) 02/24/21 09:46 RBC 4.79 M/mm3 (3.65-5.03) 02/24/21 09:46 Hgb 13.7 gm/dl (11.8-15.2) 02/24/21 09:46 Hct 41.5 % (35.5-45.6) 02/24/21 09:46 MCV 87 fl (84-94) 02/24/21 09:46 MCH 29 pg (28-32) 02/24/21 09:46 MCHC 33 % (32-34) 02/24/21 09:46 RDW 13.5 % (13.2-15.2) 02/24/21 09:46 Plt Count 201 K/mm3 (140-440) 02/24/21 09:46 Lymph % (Auto) 20.5 % (13.4-35.0) 02/24/21 09:46 [place] % (Auto) 8.1 % (0.0-7.3) H 02/24/21 09:46 Eos % (Auto) 3.6 % (0.0-4.3) 02/24/21 09:46 Baso % (Auto) 0.2 % (0.0-1.8) 02/24/21 09:46 Lymph # (Auto) 1.4 K/mm3 (1.2-5.4) 02/24/21 09:46 [place] # (Auto) 0.6 K/mm3 (0.0-0.8) 02/24/21 09:46 Eos # (Auto) 0.3 K/mm3 (0.0-0.4) 02/24/21 09:46 Baso # (Auto) 0.0 K/mm3 (0.0-0.1) 02/24/21 09:46 Seg Neutrophils % 67.6 % (40.0-70.0) 02/24/21 09:46 Seg Neutrophils # 4.8 K/mm3 (1.8-7.7) 02/24/21 09:46 Sodium 139 mmol/L (137-145) 02/24/21 09:46 Potassium 4.3 mmol/L (3.6-5.0) 02/24/21 09:46 Chloride 104.0 mmol/L (98-107) 02/24/21 09:46 Carbon Dioxide 25 mmol/L (22-30) 02/24/21 09:46 Anion Gap 14 mmol/L 02/24/21 09:46 BUN 9 mg/dL (9-20) 02/24/21 09:46 Creatinine 1.0 mg/dL (0.8-1.3) 02/24/21 09:46 Estimated GFR > 60 ml/min 02/24/21 09:46 BUN/Creatinine Ratio 9 % 02/24/21 09:46 Glucose 81 mg/dL (75-100) 02/24/21 09:46 POC Glucose 83 mg/dL (70-105) 02/24/21 11:38 Hemoglobin A1c 5.7 % (4-6) 02/24/21 09:46 Calcium 9.4 mg/dL (8.4-10.2) 02/24/21 09:46 Total Bilirubin 0.20 mg/dL (0.1-1.2) 02/24/21 09:46 AST 16 units/L (5-40) 02/24/21 09:46 ALT 9 units/L (7-56) 02/24/21 09:46 Alkaline Phosphatase 62 units/L (35-129) 02/24/21 09:46 Total Protein 7.1 g/dL (6.3-8.2) 02/24/21 09:46 Albumin 4.2 g/dL (3.9-5) 02/24/21 09:46 Albumin/Globulin Ratio 1.4 % 02/24/21 09:46 Triglycerides 84 mg/dL (2-149) 02/24/21 09:46 Cholesterol 128 mg/dL (50-199) 02/24/21 09:46 LDL Cholesterol Direct 64 mg/dL (50-130) 02/24/21 09:46 HDL Cholesterol 58 mg/dL (40-59) 02/24/21 09:46 Cholesterol/HDL Ratio 2.20 % 02/24/21 09:46 TSH 1.590 mlU/mL (0.270-4.200) 02/24/21 09:46 Urine Color Straw (Yellow) 02/22/21 Unknown Urine Turbidity Clear (Clear) 02/22/21 Unknown Urine pH 6.0 (5.0-7.0) 02/22/21 Unknown Ur Specific [place] 1.009 (1.003-1.030) 02/22/21 Unknown Urine Protein <15 mg/dl mg/dL (Negative) 02/22/21 Unknown Urine Glucose (UA) Neg mg/dL (Negative) 02/22/21 Unknown Urine Ketones Neg mg/dL (Negative) 02/22/21 Unknown Urine Blood Neg (Negative) 02/22/21 Unknown Urine Nitrite Neg (Negative) 02/22/21 Unknown Urine Bilirubin Neg (Negative) 02/22/21 Unknown Urine Urobilinogen < 2.0 mg/dL (<2.0) 02/22/21 Unknown Ur Leukocyte Esterase Neg (Negative) 02/22/21 Unknown Urine WBC (Auto) 1.0 /HPF (0.0-6.0) 02/22/21 Unknown Urine RBC (Auto) 1.0 /HPF (0.0-6.0) 02/22/21 Unknown U Epithel Cells (Auto) < 1.0 /HPF (0-13.0) 02/22/21 Unknown Urine Bacteria (Auto) 1+ /HPF (Negative) 02/22/21 Unknown Salicylates < 0.3 mg/dL (2.8-20.0) L 02/22/21 21:48 Urine Opiates Screen Presumptive negative 02/22/21 Unknown Urine Methadone Screen Presumptive negative 02/22/21 Unknown Acetaminophen 5.0 ug/mL (10.0-30.0) L 02/22/21 21:48 Ur Barbiturates Screen Presumptive negative 02/22/21 Unknown Ur Phencyclidine Scrn Presumptive negative 02/22/21 Unknown Ur Amphetamines Screen Presumptive negative 02/22/21 Unknown U Benzodiazepines Scrn Presumptive negative 02/22/21 Unknown Urine Cocaine Screen Presumptive negative 02/22/21 Unknown U Marijuana (THC) Screen Presumptive negative 02/22/21 Unknown Drugs of Abuse Note Disclamer 02/22/21 Unknown Plasma/Serum Alcohol < 0.01 % (0-0.07) 02/22/21 21:48 Coronavirus (PCR) Negative (Negative) 02/23/21 Unknown Last Vital Signs Temp 99.5 F 02/27/21 19:56 Pulse 80 02/27/21 19:56 Resp 16 02/27/21 19:56 BP 123/69 02/27/21 19:56 Pulse Ox 95 02/27/21 19:56
[2021-02-28] MEDS: PANTOPRAZOLE 40 MG TAB PO SCH (11:08)
[2021-02-28] MEDS: ARIPiprazole 10 MG TAB PO SCH (11:08)
[2021-02-28] MEDS: DIVALPROEX DR 500 MG TAB PO SCH ×2 (11:09→21:37)
[2021-02-28] MEDS: BENZTROPINE 1 MG TAB PO SCH ×2 (11:09→21:37)
[2021-02-28] MEDS: metFORMIN 500 MG TAB PO SCH (11:20)
[2021-02-28] MEDS: hydrOXYzine HCL 25 MG TAB PO SCH ×3 (11:20→21:37)
[2021-02-28] MEDS ORDERED: ONDANSETRON 4 MG ODT TAB PO PRN (12:36)
--- NOTE | 2021-03-01 08:05 | Progress Note ---
Subjective Date of service: 03/01/21 Principal diagnosis: Schizophrenia Subjective Comment: Psych Nurse: Last evening the patient was calmer. He made less delusional statements. He denies si/hi/vh. He can be observed at times talking to himself. His appetite is good and he is medication compliant. Overnight the patient rested quietly. He presents as sleeping 7 hours. Will continue to monitor patient for safety. Psych Progress HPI This a.m., patient described himself as Anthony Burris, says he is to jenn millans sister. Patient reported but himself voluntarily from the senior living, because he was having a bad mood swing, and needed to be in stable medication. Patient says he has been hearing voices and seeing things, and he is seeing the people talking and planning to kill micaela and also Kobi. Pt endorses maedication compliance Reason for continuing inpatient treatment: Review of Symptoms: Constitutional: Negative for weight loss ENT: Negative for stridor Respiratory: Negative for cough or hemoptysis All other systems reviewed and are negative MENTAL STATUS EXAMINATION General Appearance and Behavior: Age appropriate, good hygiene, not wearing appropriate clothes, good eye contact, cooperative polite with questioning. Cooperation: Participating/engaged Psychomotor Behavior: Psychomotor agitation Mood: Good Affect and affective range: euthymic, euphoric Thought Process:Circumstantial, Illogical, Thought Content: Flight of ideas, Illogical, Grandiose, Speech: pressured, loud volume at times Intellectual Functioning: Average Suicidal Ideation: Denies SI Homicidal Ideation: Denies HIl Impulse Control: Impaired Insight and Judgment: Limited insight and judgment Memory: Normal, Attention: Divided attention impaired Orientation: Alert, oriented, Treatment Plan Assessment and Plan - Patient Problems (1) Schizoaffective disorder Current Visit: Yes Status: Acute Patient admitted for inpatient psychiatric evaluation, medication adjustment and close monitoring The patient's behavior, mood, sleep and appetite will be closely monitored. Patient enrolled in individual and group therapeutic sessions and encouraged to attend. Patient provided with a safe and structured environment. Patient's physical health needs will be addressed by the Hospitalist. Hospitalist Consulted Labs including CBC, CMP, Lipid profile and Hemoglobin A1C levels ordered for baseline reference Social Assessment will be completed and the Server Assistant will work with patient and family to ensure a suitable and safe disposition Medication adjustment will be made as clinically indicated Usual Wellness Jehovah'S Witness/Preservation: - Start Trazodone 50 mg po QHS & 50 mg po QHS PRN between 10 PM & 2 AM for insomnia - Start Melatonin 5 mg po QHS to promote circadian rhythm - Start [place]-3 for brain health, reduce impulsivity, and as adjunctive treatment for mood disorder, continue upon discharge given overall benefits. - Start B1 prophylaxis with 200 mg po for 5 days The patient agreed on the treatment plan, understood the risk, benefit, alternative treatment, potential consequence of no treatment, and gave informed consent. Initial Certification Inpatient psych services: I certify that the inpatient psychiatric services are required for treatment that could reasonably be expected to improve the patient's condition. Estimated days: 5 Post hospital care: primary care provider, psychiatric provider Assessment and Plan - Patient Problems (1) Schizoaffective disorder Current Visit: Yes Status: Acute Medications and Allergies Allergies Allergy/AdvReac Type Severity Reaction Status Date / Time No Known Allergies Allergy Verified 07/15/20 00:58 Home Medications Medication Instructions Recorded Confirmed Last Taken Type ARIPiprazole [Abilify TAB] 5 mg PO DAILY 07/13/20 02/22/21 Unknown History Benztropine Mesylate 1 mg PO BID 07/13/20 02/22/21 07/12/20 History hydrOXYzine PAMOATE [Vistaril] 25 mg PO TID 07/13/20 02/22/21 07/12/20 History metFORMIN [Glucophage] 500 mg PO BID 07/13/20 02/22/21 1 Day Ago History ~07/12/20 Pantoprazole [Protonix] 40 mg PO QAM 02/22/21 02/22/21 Unknown History Ramelteon 8 mg PO QHS 02/22/21 02/22/21 Unknown History Active Meds: Active Medications Acetaminophen (Acetaminophen 325 Mg Tab) 650 mg PO Q4HR PRN PRN Reason: Pain MILD(1-3)/Fever >100.5/CROWDER Al Hydrox/Mg Hydrox/Simethicone (Alum-Mag Hydroxide-Simethicone [id number]/5ml Oral Liqd 30 Ml) 30 ml PO Q4HR PRN PRN Reason: Indigestion Aripiprazole (Aripiprazole 10 Mg Tab) 20 mg PO QDAY KHURRAM Last Admin: 02/28/21 11:08 Dose: 20 mg Documented by: Benztropine Mesylate (Benztropine 1 Mg Tab) 1 mg PO BID [facility] Last Admin: 02/28/21 21:37 Dose: 1 mg Documented by: Divalproex Sodium (Divalproex Dr 500 Mg Tab) 500 mg PO BID [facility] Last Admin: 02/28/21 21:37 Dose: 500 mg Documented by: Hydroxyzine HCl (Hydroxyzine Hcl 25 Mg Tab) 25 mg PO TID [facility] Last Admin: 02/28/21 21:37 Dose: 25 mg Documented by: Magnesium Hydroxide (Magnesium Hydroxide (Mom) Oral Liqd Udc) 30 ml PO Q12HR PRN PRN Reason: Constipation Metformin HCl (Metformin 500 Mg Tab) 500 mg PO BIDDIAB [facility] Last Admin: 02/28/21 11:20 Dose: Not Given Documented by: Miscellaneous Medication (Ramelteon [Ramelteon]) 8 mg PO QHS [facility] Ondansetron HCl (Ondansetron 4 Mg Odt Tab) 4 mg PO Q8H PRN PRN Reason: Nausea And Vomiting Pantoprazole Sodium (Pantoprazole 40 Mg Tab) 40 mg PO QAM [facility] Last Admin: 02/28/21 11:08 Dose: 40 mg Documented by: Results - Results Labs/Vitals: Laboratory Last Values WBC 7.1 K/mm3 (4.5-11.0) 02/24/21 09:46 RBC 4.79 M/mm3 (3.65-5.03) 02/24/21 09:46 Hgb 13.7 gm/dl (11.8-15.2) 02/24/21 09:46 Hct 41.5 % (35.5-45.6) 02/24/21 09:46 MCV 87 fl (84-94) 02/24/21 09:46 MCH 29 pg (28-32) 02/24/21 09:46 MCHC 33 % (32-34) 02/24/21 09:46 RDW 13.5 % (13.2-15.2) 02/24/21 09:46 Plt Count 201 K/mm3 (140-440) 02/24/21 09:46 Lymph % (Auto) 20.5 % (13.4-35.0) 02/24/21 09:46 [place] % (Auto) 8.1 % (0.0-7.3) H 02/24/21 09:46 Eos % (Auto) 3.6 % (0.0-4.3) 02/24/21 09:46 Baso % (Auto) 0.2 % (0.0-1.8) 02/24/21 09:46 Lymph # (Auto) 1.4 K/mm3 (1.2-5.4) 02/24/21 09:46 [place] # (Auto) 0.6 K/mm3 (0.0-0.8) 02/24/21 09:46 Eos # (Auto) 0.3 K/mm3 (0.0-0.4) 02/24/21 09:46 Baso # (Auto) 0.0 K/mm3 (0.0-0.1) 02/24/21 09:46 Seg Neutrophils % 67.6 % (40.0-70.0) 02/24/21 09:46 Seg Neutrophils # 4.8 K/mm3 (1.8-7.7) 02/24/21 09:46 Sodium 139 mmol/L (137-145) 02/24/21 09:46 Potassium 4.3 mmol/L (3.6-5.0) 02/24/21 09:46 Chloride 104.0 mmol/L (98-107) 02/24/21 09:46 Carbon Dioxide 25 mmol/L (22-30) 02/24/21 09:46 Anion Gap 14 mmol/L 02/24/21 09:46 BUN 9 mg/dL (9-20) 02/24/21 09:46 Creatinine 1.0 mg/dL (0.8-1.3) 02/24/21 09:46 Estimated GFR > 60 ml/min 02/24/21 09:46 BUN/Creatinine Ratio 9 % 02/24/21 09:46 Glucose 81 mg/dL (75-100) 02/24/21 09:46 POC Glucose 83 mg/dL (70-105) 02/24/21 11:38 Hemoglobin A1c 5.7 % (4-6) 02/24/21 09:46 Calcium 9.4 mg/dL (8.4-10.2) 02/24/21 09:46 Total Bilirubin 0.20 mg/dL (0.1-1.2) 02/24/21 09:46 AST 16 units/L (5-40) 02/24/21 09:46 ALT 9 units/L (7-56) 02/24/21 09:46 Alkaline Phosphatase 62 units/L (35-129) 02/24/21 09:46 Total Protein 7.1 g/dL (6.3-8.2) 02/24/21 09:46 Albumin 4.2 g/dL (3.9-5) 02/24/21 09:46 Albumin/Globulin Ratio 1.4 % 02/24/21 09:46 Triglycerides 84 mg/dL (2-149) 02/24/21 09:46 Cholesterol 128 mg/dL (50-199) 02/24/21 09:46 LDL Cholesterol Direct 64 mg/dL (50-130) 02/24/21 09:46 HDL Cholesterol 58 mg/dL (40-59) 02/24/21 09:46 Cholesterol/HDL Ratio 2.20 % 02/24/21 09:46 TSH 1.590 mlU/mL (0.270-4.200) 02/24/21 09:46 Urine Color Straw (Yellow) 02/22/21 Unknown Urine Turbidity Clear (Clear) 02/22/21 Unknown Urine pH 6.0 (5.0-7.0) 02/22/21 Unknown Ur Specific [place] 1.009 (1.003-1.030) 02/22/21 Unknown Urine Protein <15 mg/dl mg/dL (Negative) 02/22/21 Unknown Urine Glucose (UA) Neg mg/dL (Negative) 02/22/21 Unknown Urine Ketones Neg mg/dL (Negative) 02/22/21 Unknown Urine Blood Neg (Negative) 02/22/21 Unknown Urine Nitrite Neg (Negative) 02/22/21 Unknown Urine Bilirubin Neg (Negative) 02/22/21 Unknown Urine Urobilinogen < 2.0 mg/dL (<2.0) 02/22/21 Unknown Ur Leukocyte Esterase Neg (Negative) 02/22/21 Unknown Urine WBC (Auto) 1.0 /HPF (0.0-6.0) 02/22/21 Unknown Urine RBC (Auto) 1.0 /HPF (0.0-6.0) 02/22/21 Unknown U Epithel Cells (Auto) < 1.0 /HPF (0-13.0) 02/22/21 Unknown Urine Bacteria (Auto) 1+ /HPF (Negative) 02/22/21 Unknown Salicylates < 0.3 mg/dL (2.8-20.0) L 02/22/21 21:48 Urine Opiates Screen Presumptive negative 02/22/21 Unknown Urine Methadone Screen Presumptive negative 02/22/21 Unknown Acetaminophen 5.0 ug/mL (10.0-30.0) L 02/22/21 21:48 Ur Barbiturates Screen Presumptive negative 02/22/21 Unknown Valproic Acid 40.1 ug/mL (50-100) L 02/28/21 13:06 Ur Phencyclidine Scrn Presumptive negative 02/22/21 Unknown Ur Amphetamines Screen Presumptive negative 02/22/21 Unknown U Benzodiazepines Scrn Presumptive negative 02/22/21 Unknown Urine Cocaine Screen Presumptive negative 02/22/21 Unknown U Marijuana (THC) Screen Presumptive negative 02/22/21 Unknown Drugs of Abuse Note Disclamer 02/22/21 Unknown Plasma/Serum Alcohol < 0.01 % (0-0.07) 02/22/21 21:48 Coronavirus (PCR) Negative (Negative) 02/23/21 Unknown Last Vital Signs Temp 99.5 F 02/27/21 19:56 Pulse 80 02/27/21 19:56 Resp 16 02/27/21 19:56 BP 123/69 02/27/21 19:56 Pulse Ox 95 02/27/21 19:56
[2021-03-01] MEDS: ARIPiprazole 10 MG TAB PO SCH (10:47)
[2021-03-01] MEDS: BENZTROPINE 1 MG TAB PO SCH ×2 (10:48→21:33)
[2021-03-01] MEDS: PANTOPRAZOLE 40 MG TAB PO SCH (10:48)
[2021-03-01] MEDS: DIVALPROEX DR 500 MG TAB PO SCH ×2 (10:48→21:33)
[2021-03-01] MEDS: metFORMIN 500 MG TAB PO SCH ×3 (17:27→20:14)
[2021-03-01] MEDS: hydrOXYzine HCL 25 MG TAB PO SCH ×3 (17:41→21:33)
--- NOTE | 2021-03-02 07:05 | Progress Note ---
Subjective Date of service: 03/02/21 Principal diagnosis: Schizophrenia Subjective Comment: Psych Nurse: pt spent the evening in activity room watching television, alert and oriented to person and place, calm and cooperative, responds to internal stimuli, observes talking to himself, delusional about being the ELVIS, being in the , medication compliant, good appetite, denies si/hi, denies a/v/h, no distress noted, will continue to monitor for safety. Psych Progress HPI Patient seen this a.m., patient reports that he feels peaceful and in her morning with himself. Patient still endorses auditory and visual hallucinations, that he can hear the actor Evan from [employer], inviting him to come over for movie premirer. Financial reported he sees himself as the future drier attendant just like Anthony Peace Reason for continuing inpatient treatment: Patient is obsessed with grandiose ideas but no behavioral issues, cooperative with care and med compliant Review of Symptoms: Constitutional: Negative for weight loss ENT: Negative for stridor Respiratory: Negative for cough or hemoptysis All other systems reviewed and are negative MENTAL STATUS EXAMINATION General Appearance and Behavior: Age appropriate, good hygiene, not wearing appropriate clothes, good eye contact, cooperative polite with questioning. Cooperation: Participating/engaged Psychomotor Behavior: Psychomotor agitation Mood: Good Affect and affective range: euthymic, euphoric Thought Process:Circumstantial, Illogical, Thought Content: Flight of ideas, Illogical, Grandiose, Speech: pressured, loud volume at times Intellectual Functioning: Average Suicidal Ideation: Denies SI Homicidal Ideation: Denies HIl Impulse Control: Impaired Insight and Judgment: Limited insight and judgment Memory: Normal, Attention: Divided attention impaired Orientation: Alert, oriented, Treatment Plan Assessment and Plan - Patient Problems (1) Schizoaffective disorder Current Visit: Yes Status: Acute Continue current medications Patient admitted for inpatient psychiatric evaluation, medication adjustment and close monitoring The patient's behavior, mood, sleep and appetite will be closely monitored. Patient enrolled in individual and group therapeutic sessions and encouraged to attend. Patient provided with a safe and structured environment. Patient's physical health needs will be addressed by the Hospitalist. Hospitalist Consulted Labs including CBC, CMP, Lipid profile and Hemoglobin A1C levels ordered for baseline reference Social Assessment will be completed and the Superintendent Local will work with patient and family to ensure a suitable and safe disposition Medication adjustment will be made as clinically indicated Usual Wellness Sabianism/Preservation: - Start Trazodone 50 mg po QHS & 50 mg po QHS PRN between 10 PM & 2 AM for insomnia - Start Melatonin 5 mg po QHS to promote circadian rhythm - Start [place]-3 for brain health, reduce impulsivity, and as adjunctive treatment for mood disorder, continue upon discharge given overall benefits. - Start B1 prophylaxis with 200 mg po for 5 days The patient agreed on the treatment plan, understood the risk, benefit, alternative treatment, potential consequence of no treatment, and gave informed consent. Initial Certification Inpatient psych services: I certify that the inpatient psychiatric services are required for treatment that could reasonably be expected to improve the patient's condition. Estimated days: 4 Post hospital care: primary care provider, psychiatric provider Assessment and Plan - Patient Problems (1) Schizoaffective disorder Current Visit: Yes Status: Acute Medications and Allergies Allergies Allergy/AdvReac Type Severity Reaction Status Date / Time No Known Allergies Allergy Verified 07/15/20 00:58 Home Medications Medication Instructions Recorded Confirmed Last Taken Type ARIPiprazole [Abilify TAB] 5 mg PO DAILY 07/13/20 02/22/21 Unknown History Benztropine Mesylate 1 mg PO BID 07/13/20 02/22/21 07/12/20 History hydrOXYzine PAMOATE [Vistaril] 25 mg PO TID 07/13/20 02/22/21 07/12/20 History metFORMIN [Glucophage] 500 mg PO BID 07/13/20 02/22/21 1 Day Ago History ~07/12/20 Pantoprazole [Protonix] 40 mg PO QAM 02/22/21 02/22/21 Unknown History Ramelteon 8 mg PO QHS 02/22/21 02/22/21 Unknown History Active Meds: Active Medications Acetaminophen (Acetaminophen 325 Mg Tab) 650 mg PO Q4HR PRN PRN Reason: Pain MILD(1-3)/Fever >100.5/CROWDER Al Hydrox/Mg Hydrox/Simethicone (Alum-Mag Hydroxide-Simethicone [id number]/5ml Oral Liqd 30 Ml) 30 ml PO Q4HR PRN PRN Reason: Indigestion Aripiprazole (Aripiprazole 10 Mg Tab) 20 mg PO QDAY KHURRAM Last Admin: 03/01/21 10:47 Dose: 20 mg Documented by: Benztropine Mesylate (Benztropine 1 Mg Tab) 1 mg PO BID [facility] Last Admin: 03/01/21 21:33 Dose: 1 mg Documented by: Divalproex Sodium (Divalproex Dr 500 Mg Tab) 500 mg PO BID [facility] Last Admin: 03/01/21 21:33 Dose: 500 mg Documented by: Hydroxyzine HCl (Hydroxyzine Hcl 25 Mg Tab) 25 mg PO TID [facility] Last Admin: 03/01/21 21:33 Dose: 25 mg Documented by: Magnesium Hydroxide (Magnesium Hydroxide (Mom) Oral Liqd Udc) 30 ml PO Q12HR PRN PRN Reason: Constipation Metformin HCl (Metformin 500 Mg Tab) 500 mg PO BIDDIAB [facility] Last Admin: 03/01/21 20:14 Dose: Not Given Documented by: Miscellaneous Medication (Ramelteon [Ramelteon]) 8 mg PO QHS [facility] Ondansetron HCl (Ondansetron 4 Mg Odt Tab) 4 mg PO Q8H PRN PRN Reason: Nausea And Vomiting Pantoprazole Sodium (Pantoprazole 40 Mg Tab) 40 mg PO QAM [facility] Last Admin: 03/01/21 10:48 Dose: 40 mg Documented by: Results - Results Labs/Vitals: Laboratory Last Values WBC 7.1 K/mm3 (4.5-11.0) 02/24/21 09:46 RBC 4.79 M/mm3 (3.65-5.03) 02/24/21 09:46 Hgb 13.7 gm/dl (11.8-15.2) 02/24/21 09:46 Hct 41.5 % (35.5-45.6) 02/24/21 09:46 MCV 87 fl (84-94) 02/24/21 09:46 MCH 29 pg (28-32) 02/24/21 09:46 MCHC 33 % (32-34) 02/24/21 09:46 RDW 13.5 % (13.2-15.2) 02/24/21 09:46 Plt Count 201 K/mm3 (140-440) 02/24/21 09:46 Lymph % (Auto) 20.5 % (13.4-35.0) 02/24/21 09:46 [place] % (Auto) 8.1 % (0.0-7.3) H 02/24/21 09:46 Eos % (Auto) 3.6 % (0.0-4.3) 02/24/21 09:46 Baso % (Auto) 0.2 % (0.0-1.8) 02/24/21 09:46 Lymph # (Auto) 1.4 K/mm3 (1.2-5.4) 02/24/21 09:46 [place] # (Auto) 0.6 K/mm3 (0.0-0.8) 02/24/21 09:46 Eos # (Auto) 0.3 K/mm3 (0.0-0.4) 02/24/21 09:46 Baso # (Auto) 0.0 K/mm3 (0.0-0.1) 02/24/21 09:46 Seg Neutrophils % 67.6 % (40.0-70.0) 02/24/21 09:46 Seg Neutrophils # 4.8 K/mm3 (1.8-7.7) 02/24/21 09:46 Sodium 139 mmol/L (137-145) 02/24/21 09:46 Potassium 4.3 mmol/L (3.6-5.0) 02/24/21 09:46 Chloride 104.0 mmol/L (98-107) 02/24/21 09:46 Carbon Dioxide 25 mmol/L (22-30) 02/24/21 09:46 Anion Gap 14 mmol/L 02/24/21 09:46 BUN 9 mg/dL (9-20) 02/24/21 09:46 Creatinine 1.0 mg/dL (0.8-1.3) 02/24/21 09:46 Estimated GFR > 60 ml/min 02/24/21 09:46 BUN/Creatinine Ratio 9 % 02/24/21 09:46 Glucose 81 mg/dL (75-100) 02/24/21 09:46 POC Glucose 83 mg/dL (70-105) 02/24/21 11:38 Hemoglobin A1c 5.7 % (4-6) 02/24/21 09:46 Calcium 9.4 mg/dL (8.4-10.2) 02/24/21 09:46 Total Bilirubin 0.20 mg/dL (0.1-1.2) 02/24/21 09:46 AST 16 units/L (5-40) 02/24/21 09:46 ALT 9 units/L (7-56) 02/24/21 09:46 Alkaline Phosphatase 62 units/L (35-129) 02/24/21 09:46 Total Protein 7.1 g/dL (6.3-8.2) 02/24/21 09:46 Albumin 4.2 g/dL (3.9-5) 02/24/21 09:46 Albumin/Globulin Ratio 1.4 % 02/24/21 09:46 Triglycerides 84 mg/dL (2-149) 02/24/21 09:46 Cholesterol 128 mg/dL (50-199) 02/24/21 09:46 LDL Cholesterol Direct 64 mg/dL (50-130) 02/24/21 09:46 HDL Cholesterol 58 mg/dL (40-59) 02/24/21 09:46 Cholesterol/HDL Ratio 2.20 % 02/24/21 09:46 TSH 1.590 mlU/mL (0.270-4.200) 02/24/21 09:46 Urine Color Straw (Yellow) 02/22/21 Unknown Urine Turbidity Clear (Clear) 02/22/21 Unknown Urine pH 6.0 (5.0-7.0) 02/22/21 Unknown Ur Specific [place] 1.009 (1.003-1.030) 02/22/21 Unknown Urine Protein <15 mg/dl mg/dL (Negative) 02/22/21 Unknown Urine Glucose (UA) Neg mg/dL (Negative) 02/22/21 Unknown Urine Ketones Neg mg/dL (Negative) 02/22/21 Unknown Urine Blood Neg (Negative) 02/22/21 Unknown Urine Nitrite Neg (Negative) 02/22/21 Unknown Urine Bilirubin Neg (Negative) 02/22/21 Unknown Urine Urobilinogen < 2.0 mg/dL (<2.0) 02/22/21 Unknown Ur Leukocyte Esterase Neg (Negative) 02/22/21 Unknown Urine WBC (Auto) 1.0 /HPF (0.0-6.0) 02/22/21 Unknown Urine RBC (Auto) 1.0 /HPF (0.0-6.0) 02/22/21 Unknown U Epithel Cells (Auto) < 1.0 /HPF (0-13.0) 02/22/21 Unknown Urine Bacteria (Auto) 1+ /HPF (Negative) 02/22/21 Unknown Salicylates < 0.3 mg/dL (2.8-20.0) L 02/22/21 21:48 Urine Opiates Screen Presumptive negative 02/22/21 Unknown Urine Methadone Screen Presumptive negative 02/22/21 Unknown Acetaminophen 5.0 ug/mL (10.0-30.0) L 02/22/21 21:48 Ur Barbiturates Screen Presumptive negative 02/22/21 Unknown Valproic Acid 40.1 ug/mL (50-100) L 02/28/21 13:06 Ur Phencyclidine Scrn Presumptive negative 02/22/21 Unknown Ur Amphetamines Screen Presumptive negative 02/22/21 Unknown U Benzodiazepines Scrn Presumptive negative 02/22/21 Unknown Urine Cocaine Screen Presumptive negative 02/22/21 Unknown U Marijuana (THC) Screen Presumptive negative 02/22/21 Unknown Drugs of Abuse Note Disclamer 02/22/21 Unknown Plasma/Serum Alcohol < 0.01 % (0-0.07) 02/22/21 21:48 Coronavirus (PCR) Negative (Negative) 02/23/21 Unknown Last Vital Signs Temp 98.1 F 03/01/21 19:57 Pulse 80 03/01/21 19:57 Resp 18 03/01/21 19:57 BP 118/77 03/01/21 19:57 Pulse Ox 98 03/01/21 19:57
[2021-03-02] MEDS: hydrOXYzine HCL 25 MG TAB PO SCH ×3 (09:00→22:10)
[2021-03-02] MEDS: metFORMIN 500 MG TAB PO SCH ×2 (09:00→17:13)
[2021-03-02] MEDS: PANTOPRAZOLE 40 MG TAB PO SCH (11:00)
[2021-03-02] MEDS: ACETAMINOPHEN 325 MG TAB PO PRN (11:00)
[2021-03-02] MEDS: DIVALPROEX DR 500 MG TAB PO SCH ×2 (11:00→22:09)
[2021-03-02] MEDS: ARIPiprazole 10 MG TAB PO SCH (11:00)
[2021-03-02] MEDS: BENZTROPINE 1 MG TAB PO SCH ×2 (11:00→22:09)
--- NOTE | 2021-03-03 06:51 | Progress Note ---
Subjective Date of service: 03/03/21 Principal diagnosis: Schizophrenia Subjective Comment: Psych Nurse: Pt received in the hallway. A&OX3. Hyperverbal and loud. Introduced self to caption writer and state he was trained to Nestor Cardenas in [facility]. Somewhat delusional and exhibiting Grandiosity. Denies pain, SI, or HI. No acute distress observed and none reported. Will continue to monitor. Psych Progress HPI Patient seen this a.m., patient states that he feels all right but still feels kind of sick. Patient requested that he would like to be started on haldol because it works better for him, then started talking about Kobi again and secret service and assassination. Reason for continuing inpatient treatment: Patient is obsessed with grandiose ideas but no behavioral issues, cooperative with care and med compliant Review of Symptoms: Constitutional: Negative for weight loss ENT: Negative for stridor Respiratory: Negative for cough or hemoptysis All other systems reviewed and are negative MENTAL STATUS EXAMINATION General Appearance and Behavior: Age appropriate, good hygiene, not wearing appropriate clothes, good eye contact, cooperative polite with questioning. Cooperation: Participating/engaged Psychomotor Behavior: Psychomotor agitation Mood: Good Affect and affective range: euthymic, euphoric Thought Process:Circumstantial, Illogical, Thought Content: Flight of ideas, Illogical, Grandiose, Speech: pressured, loud volume at times Intellectual Functioning: Average Suicidal Ideation: Denies SI Homicidal Ideation: Denies HIl Impulse Control: Impaired Insight and Judgment: Limited insight and judgment Memory: Normal, Attention: Divided attention impaired Orientation: Alert, oriented, Treatment Plan Assessment and Plan - Patient Problems (1) Schizoaffective disorder Current Visit: Yes Status: Acute Will start haldol, and discontinue abilify in 2 days. Continue current medications Patient admitted for inpatient psychiatric evaluation, medication adjustment and close monitoring The patient's behavior, mood, sleep and appetite will be closely monitored. Patient enrolled in individual and group therapeutic sessions and encouraged to attend. Patient provided with a safe and structured environment. Patient's physical health needs will be addressed by the Hospitalist. Hospitalist Consulted Labs including CBC, CMP, Lipid profile and Hemoglobin A1C levels ordered for baseline reference Social Assessment will be completed and the Cafe Aide will work with p atient and family to ensure a suitable and safe disposition Medication adjustment will be made as clinically indicated Usual Wellness Yarsani/Preservation: - Start Trazodone 50 mg po QHS & 50 mg po QHS PRN between 10 PM & 2 AM for insomnia - Start Melatonin 5 mg po QHS to promote circadian rhythm - Start [place]-3 for brain health, reduce impulsivity, and as adjunctive treatment for mood disorder, continue upon discharge given overall benefits. - Start B1 prophylaxis with 200 mg po for 5 days The patient agreed on the treatment plan, understood the risk, benefit, alternative treatment, potential consequence of no treatment, and gave informed consent. Initial Certification Inpatient psych services: I certify that the inpatient psychiatric services are required for treatment that could reasonably be expected to improve the patient's condition. Estimated days: 3 Post hospital care: primary care provider, psychiatric provider Assessment and Plan - Patient Problems (1) Schizoaffective disorder Current Visit: Yes Status: Acute Medications and Allergies Allergies Allergy/AdvReac Type Severity Reaction Status Date / Time No Known Allergies Allergy Verified 07/15/20 00:58 Home Medications Medication Instructions Recorded Confirmed Last Taken Type ARIPiprazole [Abilify TAB] 5 mg PO DAILY 07/13/20 02/22/21 Unknown History Benztropine Mesylate 1 mg PO BID 07/13/20 02/22/21 07/12/20 History hydrOXYzine PAMOATE [Vistaril] 25 mg PO TID 07/13/20 02/22/21 07/12/20 History metFORMIN [Glucophage] 500 mg PO BID 07/13/20 02/22/21 1 Day Ago History ~07/12/20 Pantoprazole [Protonix] 40 mg PO QAM 02/22/21 02/22/21 Unknown History Ramelteon 8 mg PO QHS 02/22/21 02/22/21 Unknown History Active Meds: Active Medications Acetaminophen (Acetaminophen 325 Mg Tab) 650 mg PO Q4HR PRN PRN Reason: Pain MILD(1-3)/Fever >100.5/CROWDER Last Admin: 03/02/21 11:00 Dose: 650 mg Documented by: Al Hydrox/Mg Hydrox/Simethicone (Alum-Mag Hydroxide-Simethicone [id number]/5ml Oral Liqd 30 Ml) 30 ml PO Q4HR PRN PRN Reason: Indigestion Aripiprazole (Aripiprazole 10 Mg Tab) 20 mg PO QDAY [facility] Last Admin: 03/02/21 11:00 Dose: 20 mg Documented by: Benztropine Mesylate (Benztropine 1 Mg Tab) 1 mg PO BID [facility] Last Admin: 03/02/21 22:09 Dose: 1 mg Documented by: Divalproex Sodium (Divalproex Dr 500 Mg Tab) 500 mg PO BID [facility] Last Admin: 03/02/21 22:09 Dose: 500 mg Documented by: Hydroxyzine HCl (Hydroxyzine Hcl 25 Mg Tab) 25 mg PO TID [facility] Last Admin: 03/02/21 22:10 Dose: 25 mg Documented by: Magnesium Hydroxide (Magnesium Hydroxide (Mom) Oral Liqd Udc) 30 ml PO Q12HR PRN PRN Reason: Constipation Metformin HCl (Metformin 500 Mg Tab) 500 mg PO BIDDIAB [facility] Last Admin: 03/02/21 17:13 Dose: 500 mg Documented by: Miscellaneous Medication (Ramelteon [Ramelteon]) 8 mg PO QHS [facility] Ondansetron HCl (Ondansetron 4 Mg Odt Tab) 4 mg PO Q8H PRN PRN Reason: Nausea And Vomiting Pantoprazole Sodium (Pantoprazole 40 Mg Tab) 40 mg PO QAM [facility] Last Admin: 03/02/21 11:00 Dose: 40 mg Documented by: Results - Results Labs/Vitals: Laboratory Last Values WBC 7.1 K/mm3 (4.5-11.0) 02/24/21 09:46 RBC 4.79 M/mm3 (3.65-5.03) 02/24/21 09:46 Hgb 13.7 gm/dl (11.8-15.2) 02/24/21 09:46 Hct 41.5 % (35.5-45.6) 02/24/21 09:46 MCV 87 fl (84-94) 02/24/21 09:46 MCH 29 pg (28-32) 02/24/21 09:46 MCHC 33 % (32-34) 02/24/21 09:46 RDW 13.5 % (13.2-15.2) 02/24/21 09:46 Plt Count 201 K/mm3 (140-440) 02/24/21 09:46 Lymph % (Auto) 20.5 % (13.4-35.0) 02/24/21 09:46 [place] % (Auto) 8.1 % (0.0-7.3) H 02/24/21 09:46 Eos % (Auto) 3.6 % (0.0-4.3) 02/24/21 09:46 Baso % (Auto) 0.2 % (0.0-1.8) 02/24/21 09:46 Lymph # (Auto) 1.4 K/mm3 (1.2-5.4) 02/24/21 09:46 [place] # (Auto) 0.6 K/mm3 (0.0-0.8) 02/24/21 09:46 Eos # (Auto) 0.3 K/mm3 (0.0-0.4) 02/24/21 09:46 Baso # (Auto) 0.0 K/mm3 (0.0-0.1) 02/24/21 09:46 Seg Neutrophils % 67.6 % (40.0-70.0) 02/24/21 09:46 Seg Neutrophils # 4.8 K/mm3 (1.8-7.7) 02/24/21 09:46 Sodium 139 mmol/L (137-145) 02/24/21 09:46 Potassium 4.3 mmol/L (3.6-5.0) 02/24/21 09:46 Chloride 104.0 mmol/L (98-107) 02/24/21 09:46 Carbon Dioxide 25 mmol/L (22-30) 02/24/21 09:46 Anion Gap 14 mmol/L 02/24/21 09:46 BUN 9 mg/dL (9-20) 02/24/21 09:46 Creatinine 1.0 mg/dL (0.8-1.3) 02/24/21 09:46 Estimated GFR > 60 ml/min 02/24/21 09:46 BUN/Creatinine Ratio 9 % 02/24/21 09:46 Glucose 81 mg/dL (75-100) 02/24/21 09:46 POC Glucose 83 mg/dL (70-105) 02/24/21 11:38 Hemoglobin A1c 5.7 % (4-6) 02/24/21 09:46 Calcium 9.4 mg/dL (8.4-10.2) 02/24/21 09:46 Total Bilirubin 0.20 mg/dL (0.1-1.2) 02/24/21 09:46 AST 16 units/L (5-40) 02/24/21 09:46 ALT 9 units/L (7-56) 02/24/21 09:46 Alkaline Phosphatase 62 units/L (35-129) 02/24/21 09:46 Total Protein 7.1 g/dL (6.3-8.2) 02/24/21 09:46 Albumin 4.2 g/dL (3.9-5) 02/24/21 09:46 Albumin/Globulin Ratio 1.4 % 02/24/21 09:46 Triglycerides 84 mg/dL (2-149) 02/24/21 09:46 Cholesterol 128 mg/dL (50-199) 02/24/21 09:46 LDL Cholesterol Direct 64 mg/dL (50-130) 02/24/21 09:46 HDL Cholesterol 58 mg/dL (40-59) 02/24/21 09:46 Cholesterol/HDL Ratio 2.20 % 02/24/21 09:46 TSH 1.590 mlU/mL (0.270-4.200) 02/24/21 09:46 Urine Color Straw (Yellow) 02/22/21 Unknown Urine Turbidity Clear (Clear) 02/22/21 Unknown Urine pH 6.0 (5.0-7.0) 02/22/21 Unknown Ur Specific [place] 1.009 (1.003-1.030) 02/22/21 Unknown Urine Protein <15 mg/dl mg/dL (Negative) 02/22/21 Unknown Urine Glucose (UA) Neg mg/dL (Negative) 02/22/21 Unknown Urine Ketones Neg mg/dL (Negative) 02/22/21 Unknown Urine Blood Neg (Negative) 02/22/21 Unknown Urine Nitrite Neg (Negative) 02/22/21 Unknown Urine Bilirubin Neg (Negative) 02/22/21 Unknown Urine Urobilinogen < 2.0 mg/dL (<2.0) 02/22/21 Unknown Ur Leukocyte Esterase Neg (Negative) 02/22/21 Unknown Urine WBC (Auto) 1.0 /HPF (0.0-6.0) 02/22/21 Unknown Urine RBC (Auto) 1.0 /HPF (0.0-6.0) 02/22/21 Unknown U Epithel Cells (Auto) < 1.0 /HPF (0-13.0) 02/22/21 Unknown Urine Bacteria (Auto) 1+ /HPF (Negative) 02/22/21 Unknown Salicylates < 0.3 mg/dL (2.8-20.0) L 02/22/21 21:48 Urine Opiates Screen Presumptive negative 02/22/21 Unknown Urine Methadone Screen Presumptive negative 02/22/21 Unknown Acetaminophen 5.0 ug/mL (10.0-30.0) L 02/22/21 21:48 Ur Barbiturates Screen Presumptive negative 02/22/21 Unknown Valproic Acid 40.1 ug/mL (50-100) L 02/28/21 13:06 Ur Phencyclidine Scrn Presumptive negative 02/22/21 Unknown Ur Amphetamines Screen Presumptive negative 02/22/21 Unknown U Benzodiazepines Scrn Presumptive negative 02/22/21 Unknown Urine Cocaine Screen Presumptive negative 02/22/21 Unknown U Marijuana (THC) Screen Presumptive negative 02/22/21 Unknown Drugs of Abuse Note Disclamer 02/22/21 Unknown Plasma/Serum Alcohol < 0.01 % (0-0.07) 02/22/21 21:48 Coronavirus (PCR) Negative (Negative) 02/23/21 Unknown Last Vital Signs Temp 98.6 F 03/02/21 19:56 Pulse 72 03/02/21 19:56 Resp 16 03/02/21 19:56 BP 125/69 03/02/21 19:56 Pulse Ox 98 03/02/21 19:56
[2021-03-03] MEDS: ARIPiprazole 10 MG TAB PO SCH (09:21)
[2021-03-03] MEDS: DIVALPROEX DR 500 MG TAB PO SCH (09:21)
[2021-03-03] MEDS: BENZTROPINE 1 MG TAB PO SCH (09:21)
[2021-03-03] MEDS: metFORMIN 500 MG TAB PO SCH ×2 (09:21→16:49)
[2021-03-03] MEDS: HALOPERIDOL 2 MG TAB PO SCH (09:22)
[2021-03-03] MEDS: PANTOPRAZOLE 40 MG TAB PO SCH (09:22)
--- NOTE | 2021-03-04 07:50 | Progress Note ---
Subjective Date of service: 03/04/21 Principal diagnosis: Schizophrenia Subjective Comment: Psych Nurse: Today the patient spent most of his time in the activity room interacting appropriately with his peers. He does continue with grandiose delusions that he is a yuliya Fu fighter. He denies si/hi/ah/vh. He has not been observed responding to internal stimuli. His appetite is good and he is medication compliant. Will continue to monitor patient for safety.. Psych Progress HPI Patient seen this AM, patient says he feels better but still hearing voices and always hearing voices. Still hearing the guys in the room talking about killing Kobi. Reason for continuing inpatient treatment: Patient endorses chronic auditory hallucinations. Review of Symptoms: Constitutional: Negative for weight loss ENT: Negative for stridor Respiratory: Negative for cough or hemoptysis All other systems reviewed and are negative MENTAL STATUS EXAMINATION General Appearance and Behavior: Age appropriate, good hygiene, not wearing appropriate clothes, good eye contact, cooperative polite with questioning. Cooperation: Participating/engaged Psychomotor Behavior: Psychomotor agitation Mood: Good Affect and affective range: euthymic, euphoric Thought Process:Circumstantial, Illogical, Thought Content: Flight of ideas, Illogical, Grandiose, Speech: pressured, loud volume at times Intellectual Functioning: Average Suicidal Ideation: Denies SI Homicidal Ideation: Denies HIl Impulse Control: Impaired Insight and Judgment: Limited insight and judgment Memory: Normal, Attention: Divided attention impaired Orientation: Alert, oriented, Treatment Plan Assessment and Plan - Patient Problems (1) Schizoaffective disorder Current Visit: Yes Status: Acute Will start haldol, and discontinue abilify in 2 days. Continue current medications Patient admitted for inpatient psychiatric evaluation, medication adjustment and close monitoring The patient's behavior, mood, sleep and appetite will be closely monitored. Patient enrolled in individual and group therapeutic sessions and encouraged to attend. Patient provided with a safe and structured environment. Patient's physical health needs will be addressed by the Hospitalist. Hospitalist Consulted Labs including CBC, CMP, Lipid profile and Hemoglobin A1C levels ordered for baseline reference Social Assessment will be completed and the Grain Trader will work with patient and family to ensure a suitable and safe disposition Medication adjustment will be made as clinically indicated Usual Wellness Temple/Preservation: - Start Trazodone 50 mg po QHS & 50 mg po QHS PRN between 10 PM & 2 AM for insomnia - Start Melatonin 5 mg po QHS to promote circadian rhythm - Start [place]-3 for brain health, reduce impulsivity, and as adjunctive treatment for mood disorder, continue upon discharge given overall benefits. - Start B1 prophylaxis with 200 mg po for 5 days The patient agreed on the treatment plan, understood the risk, benefit, alternative treatment, potential consequence of no treatment, and gave informed consent. Initial Certification Inpatient psych services: I certify that the inpatient psychiatric services are required for treatment that could reasonably be expected to improve the patient's condition. Estimated days: 2 Post hospital care: primary care provider, psychiatric provider Assessment and Plan - Patient Problems (1) Schizoaffective disorder Current Visit: Yes Status: Acute Medications and Allergies Allergies Allergy/AdvReac Type Severity Reaction Status Date / Time No Known Allergies Allergy Verified 07/15/20 00:58 Home Medications Medication Instructions Recorded Confirmed Last Taken Type ARIPiprazole [Abilify TAB] 5 mg PO DAILY 07/13/20 02/22/21 Unknown History Benztropine Mesylate 1 mg PO BID 07/13/20 02/22/21 07/12/20 History hydrOXYzine PAMOATE [Vistaril] 25 mg PO TID 07/13/20 02/22/21 07/12/20 History metFORMIN [Glucophage] 500 mg PO BID 07/13/20 02/22/21 1 Day Ago History ~07/12/20 Pantoprazole [Protonix] 40 mg PO QAM 02/22/21 02/22/21 Unknown History Ramelteon 8 mg PO QHS 02/22/21 02/22/21 Unknown History Active Meds: Active Medications Acetaminophen (Acetaminophen 325 Mg Tab) 650 mg PO Q4HR PRN PRN Reason: Pain MILD(1-3)/Fever >100.5/CROWDER Last Admin: 03/02/21 11:00 Dose: 650 mg Documented by: Al Hydrox/Mg Hydrox/Simethicone (Alum-Mag Hydroxide-Simethicone [id number]/5ml Oral Liqd 30 Ml) 30 ml PO Q4HR PRN PRN Reason: Indigestion Aripiprazole (Aripiprazole 10 Mg Tab) 20 mg PO QDAY [facility] Last Admin: 03/03/21 09:21 Dose: 20 mg Documented by: Benztropine Mesylate (Benztropine 1 Mg Tab) 1 mg PO BID [facility] Last Admin: 03/03/21 09:21 Dose: 1 mg Documented by: Divalproex Sodium (Divalproex Dr 500 Mg Tab) 500 mg PO BID [facility] Last Admin: 03/03/21 09:21 Dose: 500 mg Documented by: Haloperidol (Haloperidol 2 Mg Tab) 5 mg PO BID [facility] Last Admin: 03/03/21 09:22 Dose: 5 mg Documented by: Magnesium Hydroxide (Magnesium Hydroxide (Mom) Oral Liqd Udc) 30 ml PO Q12HR PRN PRN Reason: Constipation Metformin HCl (Metformin 500 Mg Tab) 500 mg PO BIDDIAB [facility] Last Admin: 03/03/21 16:49 Dose: 500 mg Documented by: Miscellaneous Medication (Ramelteon [Ramelteon]) 8 mg PO QHS [facility] Ondansetron HCl (Ondansetron 4 Mg Odt Tab) 4 mg PO Q8H PRN PRN Reason: Nausea And Vomiting Pantoprazole Sodium (Pantoprazole 40 Mg Tab) 40 mg PO QAM [facility] Last Admin: 03/03/21 09:22 Dose: 40 mg Documented by: Results - Results Labs/Vitals: Laboratory Last Values WBC 7.1 K/mm3 (4.5-11.0) 02/24/21 09:46 RBC 4.79 M/mm3 (3.65-5.03) 02/24/21 09:46 Hgb 13.7 gm/dl (11.8-15.2) 02/24/21 09:46 Hct 41.5 % (35.5-45.6) 02/24/21 09:46 MCV 87 fl (84-94) 02/24/21 09:46 MCH 29 pg (28-32) 02/24/21 09:46 MCHC 33 % (32-34) 02/24/21 09:46 RDW 13.5 % (13.2-15.2) 02/24/21 09:46 Plt Count 201 K/mm3 (140-440) 02/24/21 09:46 Lymph % (Auto) 20.5 % (13.4-35.0) 02/24/21 09:46 [place] % (Auto) 8.1 % (0.0-7.3) H 02/24/21 09:46 Eos % (Auto) 3.6 % (0.0-4.3) 02/24/21 09:46 Baso % (Auto) 0.2 % (0.0-1.8) 02/24/21 09:46 Lymph # (Auto) 1.4 K/mm3 (1.2-5.4) 02/24/21 09:46 [place] # (Auto) 0.6 K/mm3 (0.0-0.8) 02/24/21 09:46 Eos # (Auto) 0.3 K/mm3 (0.0-0.4) 02/24/21 09:46 Baso # (Auto) 0.0 K/mm3 (0.0-0.1) 02/24/21 09:46 Seg Neutrophils % 67.6 % (40.0-70.0) 02/24/21 09:46 Seg Neutrophils # 4.8 K/mm3 (1.8-7.7) 02/24/21 09:46 Sodium 139 mmol/L (137-145) 02/24/21 09:46 Potassium 4.3 mmol/L (3.6-5.0) 02/24/21 09:46 Chloride 104.0 mmol/L (98-107) 02/24/21 09:46 Carbon Dioxide 25 mmol/L (22-30) 02/24/21 09:46 Anion Gap 14 mmol/L 02/24/21 09:46 BUN 9 mg/dL (9-20) 02/24/21 09:46 Creatinine 1.0 mg/dL (0.8-1.3) 02/24/21 09:46 Estimated GFR > 60 ml/min 02/24/21 09:46 BUN/Creatinine Ratio 9 % 02/24/21 09:46 Glucose 81 mg/dL (75-100) 02/24/21 09:46 POC Glucose 83 mg/dL (70-105) 02/24/21 11:38 Hemoglobin A1c 5.7 % (4-6) 02/24/21 09:46 Calcium 9.4 mg/dL (8.4-10.2) 02/24/21 09:46 Total Bilirubin 0.20 mg/dL (0.1-1.2) 02/24/21 09:46 AST 16 units/L (5-40) 02/24/21 09:46 ALT 9 units/L (7-56) 02/24/21 09:46 Alkaline Phosphatase 62 units/L (35-129) 02/24/21 09:46 Total Protein 7.1 g/dL (6.3-8.2) 02/24/21 09:46 Albumin 4.2 g/dL (3.9-5) 02/24/21 09:46 Albumin/Globulin Ratio 1.4 % 02/24/21 09:46 Triglycerides 84 mg/dL (2-149) 02/24/21 09:46 Cholesterol 128 mg/dL (50-199) 02/24/21 09:46 LDL Cholesterol Direct 64 mg/dL (50-130) 02/24/21 09:46 HDL Cholesterol 58 mg/dL (40-59) 02/24/21 09:46 Cholesterol/HDL Ratio 2.20 % 02/24/21 09:46 TSH 1.590 mlU/mL (0.270-4.200) 02/24/21 09:46 Urine Color Straw (Yellow) 02/22/21 Unknown Urine Turbidity Clear (Clear) 02/22/21 Unknown Urine pH 6.0 (5.0-7.0) 02/22/21 Unknown Ur Specific [place] 1.009 (1.003-1.030) 02/22/21 Unknown Urine Protein <15 mg/dl mg/dL (Negative) 02/22/21 Unknown Urine Glucose (UA) Neg mg/dL (Negative) 02/22/21 Unknown Urine Ketones Neg mg/dL (Negative) 02/22/21 Unknown Urine Blood Neg (Negative) 02/22/21 Unknown Urine Nitrite Neg (Negative) 02/22/21 Unknown Urine Bilirubin Neg (Negative) 02/22/21 Unknown Urine Urobilinogen < 2.0 mg/dL (<2.0) 02/22/21 Unknown Ur Leukocyte Esterase Neg (Negative) 02/22/21 Unknown Urine WBC (Auto) 1.0 /HPF (0.0-6.0) 02/22/21 Unknown Urine RBC (Auto) 1.0 /HPF (0.0-6.0) 02/22/21 Unknown U Epithel Cells (Auto) < 1.0 /HPF (0-13.0) 02/22/21 Unknown Urine Bacteria (Auto) 1+ /HPF (Negative) 02/22/21 Unknown Salicylates < 0.3 mg/dL (2.8-20.0) L 02/22/21 21:48 Urine Opiates Screen Presumptive negative 02/22/21 Unknown Urine Methadone Screen Presumptive negative 02/22/21 Unknown Acetaminophen 5.0 ug/mL (10.0-30.0) L 02/22/21 21:48 Ur Barbiturates Screen Presumptive negative 02/22/21 Unknown Valproic Acid 40.1 ug/mL (50-100) L 02/28/21 13:06 Ur Phencyclidine Scrn Presumptive negative 02/22/21 Unknown Ur Amphetamines Screen Presumptive negative 02/22/21 Unknown U Benzodiazepines Scrn Presumptive negative 02/22/21 Unknown Urine Cocaine Screen Presumptive negative 02/22/21 Unknown U Marijuana (THC) Screen Presumptive negative 02/22/21 Unknown Drugs of Abuse Note Disclamer 02/22/21 Unknown Plasma/Serum Alcohol < 0.01 % (0-0.07) 02/22/21 21:48 Coronavirus (PCR) Negative (Negative) 02/23/21 Unknown Last Vital Signs Temp 98.4 F 03/03/21 19:21 Pulse 67 03/03/21 19:21 Resp 16 03/03/21 19:21 BP 125/75 03/03/21 19:21 Pulse Ox 97 03/03/21 19:21
[2021-03-04] MEDS: DIVALPROEX DR 500 MG TAB PO SCH ×3 (12:18→22:00)
[2021-03-04] MEDS: HALOPERIDOL 2 MG TAB PO SCH ×3 (12:19→22:00)
[2021-03-04] MEDS: BENZTROPINE 1 MG TAB PO SCH ×2 (12:20→22:00)
[2021-03-04] MEDS: PANTOPRAZOLE 40 MG TAB PO SCH (12:20)
[2021-03-04] MEDS: ARIPiprazole 10 MG TAB PO SCH (12:21)
[2021-03-04] MEDS: metFORMIN 500 MG TAB PO SCH ×2 (12:23→16:08)
[2021-03-04] MEDS: ACETAMINOPHEN 325 MG TAB PO PRN (16:06)
[2021-03-05 03:15] VITALS: BP 103/78
--- NOTE | 2021-03-05 07:51 | Progress Note ---
Subjective Date of service: 03/05/21 Principal diagnosis: Schizophrenia Subjective Comment: Psych Nurse:pt spent last evening in activity room, medication compliant, delusional, good appetite, no behavioral issue, slept for approximately 6hrs plus, no distress noted, will continue to monitor for safety. Psych Progress Mr. Walters seen this a.m., patient reported he wants to join the [employer] says because he knows [employer] and also know [employer] people in [place] especially Mr Aman Mckeon. Patient otherwise has been without behavioral disturbances Reason for continuing inpatient treatment: Patient can be discharged, do not see further acute inpatient benefit, patient appears to be at baseline and is med compliant. Review of Symptoms: Constitutional: Negative for weight loss ENT: Negative for stridor Respiratory: Negative for cough or hemoptysis All other systems reviewed and are negative MENTAL STATUS EXAMINATION General Appearance and Behavior: Age appropriate, good hygiene, not wearing appropriate clothes, good eye contact, cooperative polite with questioning. Cooperation: Participating/engaged Psychomotor Behavior: Psychomotor agitation Mood: Good Affect and affective range: euthymic, euphoric Thought Process:Circumstantial, Illogical, Thought Content: Illogical, Grandiose, Speech: pressured, loud volume at times Intellectual Functioning: Average Suicidal Ideation: Denies SI Homicidal Ideation: Denies HIl Impulse Control: Impaired Insight and Judgment: Limited insight and judgment Memory: Normal, Attention: Divided attention impaired Orientation: Alert, oriented, Treatment Plan Assessment and Plan - Patient Problems (1) Schizoaffective disorder Current Visit: Yes Status: Acute Will start haldol, and discontinue abilify in 2 days. Continue current medications Patient admitted for inpatient psychiatric evaluation, medication adjustment and close monitoring The patient's behavior, mood, sleep and appetite will be closely monitored. Patient enrolled in individual and group therapeutic sessions and encouraged to attend. Patient provided with a safe and structured environment. Patient's physical health needs will be addressed by the Hospitalist. Hospitalist Consulted Labs including CBC, CMP, Lipid profile and Hemoglobin A1C levels ordered for baseline reference Social Assessment will be completed and the Cooker Mechanic will work with patient and family to ensure a suitable and safe disposition Medication adjustment will be made as clinically indicated Usual Wellness Druze/Preservation: - Start Trazodone 50 mg po QHS & 50 mg po QHS PRN between 10 PM & 2 AM for insomnia - Start Melatonin 5 mg po QHS to promote circadian rhythm - Start [place]-3 for brain health, reduce impulsivity, and as adjunctive treatment for mood disorder, continue upon discharge given overall benefits. - Start B1 prophylaxis with 200 mg po for 5 days The patient agreed on the treatment plan, understood the risk, benefit, alternative treatment, potential consequence of no treatment, and gave informed consent. Initial Certification Inpatient psych services: I certify that the inpatient psychiatric services are required for treatment that could reasonably be expected to improve the patient's condition. Estimated days: 2 Post hospital care: primary care provider, psychiatric provider Assessment and Plan - Patient Problems (1) Schizoaffective disorder Current Visit: Yes Status: Acute Medications and Allergies Allergies Allergy/AdvReac Type Severity Reaction Status Date / Time No Known Allergies Allergy Verified 07/15/20 00:58 Home Medications Medication Instructions Recorded Confirmed Last Taken Type ARIPiprazole [Abilify TAB] 5 mg PO DAILY 07/13/20 02/22/21 Unknown History Benztropine Mesylate 1 mg PO BID 07/13/20 02/22/21 07/12/20 History hydrOXYzine PAMOATE [Vistaril] 25 mg PO TID 07/13/20 02/22/21 07/12/20 History metFORMIN [Glucophage] 500 mg PO BID 07/13/20 02/22/21 1 Day Ago History ~07/12/20 Pantoprazole [Protonix] 40 mg PO QAM 02/22/21 02/22/21 Unknown History Ramelteon 8 mg PO QHS 02/22/21 02/22/21 Unknown History Active Meds: Active Medications Acetaminophen (Acetaminophen 325 Mg Tab) 650 mg PO Q4HR PRN PRN Reason: Pain MILD(1-3)/Fever >100.5/CROWDER Last Admin: 03/04/21 16:06 Dose: 650 mg Documented by: Al Hydrox/Mg Hydrox/Simethicone (Alum-Mag Hydroxide-Simethicone [phone]/5ml Oral Liqd 30 Ml) 30 ml PO Q4HR PRN PRN Reason: Indigestion Aripiprazole (Aripiprazole 10 Mg Tab) 20 mg PO QDAY [facility] Last Admin: 03/04/21 12:21 Dose: 20 mg Documented by: Benztropine Mesylate (Benztropine 1 Mg Tab) 1 mg PO BID [facility] Last Admin: 03/04/21 22:00 Dose: 1 mg Documented by: Divalproex Sodium (Divalproex Dr 500 Mg Tab) 500 mg PO BID [facility] Last Admin: 03/04/21 22:00 Dose: 500 mg Documented by: Haloperidol (Haloperidol 2 Mg Tab) 5 mg PO BID [facility] Last Admin: 03/04/21 22:00 Dose: 5 mg Documented by: Magnesium Hydroxide (Magnesium Hydroxide (Mom) Oral Liqd Udc) 30 ml PO Q12HR PRN PRN Reason: Constipation Metformin HCl (Metformin 500 Mg Tab) 500 mg PO BIDDIAB [facility] Last Admin: 03/04/21 16:08 Dose: 500 mg Documented by: Miscellaneous Medication (Ramelteon [Ramelteon]) 8 mg PO QHS [facility] Ondansetron HCl (Ondansetron 4 Mg Odt Tab) 4 mg PO Q8H PRN PRN Reason: Nausea And Vomiting Pantoprazole Sodium (Pantoprazole 40 Mg Tab) 40 mg PO QAM [facility] Last Admin: 03/04/21 12:20 Dose: 40 mg Documented by: Results - Results Labs/Vitals: Laboratory Last Values WBC 7.1 K/mm3 (4.5-11.0) 02/24/21 09:46 RBC 4.79 M/mm3 (3.65-5.03) 02/24/21 09:46 Hgb 13.7 gm/dl (11.8-15.2) 02/24/21 09:46 Hct 41.5 % (35.5-45.6) 02/24/21 09:46 MCV 87 fl (84-94) 02/24/21 09:46 MCH 29 pg (28-32) 02/24/21 09:46 MCHC 33 % (32-34) 02/24/21 09:46 RDW 13.5 % (13.2-15.2) 02/24/21 09:46 Plt Count 201 K/mm3 (140-440) 02/24/21 09:46 Lymph % (Auto) 20.5 % (13.4-35.0) 02/24/21 09:46 [place] % (Auto) 8.1 % (0.0-7.3) H 02/24/21 09:46 Eos % (Auto) 3.6 % (0.0-4.3) 02/24/21 09:46 Baso % (Auto) 0.2 % (0.0-1.8) 02/24/21 09:46 Lymph # (Auto) 1.4 K/mm3 (1.2-5.4) 02/24/21 09:46 [place] # (Auto) 0.6 K/mm3 (0.0-0.8) 02/24/21 09:46 Eos # (Auto) 0.3 K/mm3 (0.0-0.4) 02/24/21 09:46 Baso # (Auto) 0.0 K/mm3 (0.0-0.1) 02/24/21 09:46 Seg Neutrophils % 67.6 % (40.0-70.0) 02/24/21 09:46 Seg Neutrophils # 4.8 K/mm3 (1.8-7.7) 02/24/21 09:46 Sodium 139 mmol/L (137-145) 02/24/21 09:46 Potassium 4.3 mmol/L (3.6-5.0) 02/24/21 09:46 Chloride 104.0 mmol/L (98-107) 02/24/21 09:46 Carbon Dioxide 25 mmol/L (22-30) 02/24/21 09:46 Anion Gap 14 mmol/L 02/24/21 09:46 BUN 9 mg/dL (9-20) 02/24/21 09:46 Creatinine 1.0 mg/dL (0.8-1.3) 02/24/21 09:46 Estimated GFR > 60 ml/min 02/24/21 09:46 BUN/Creatinine Ratio 9 % 02/24/21 09:46 Glucose 81 mg/dL (75-100) 02/24/21 09:46 POC Glucose 83 mg/dL (70-105) 02/24/21 11:38 Hemoglobin A1c 5.7 % (4-6) 02/24/21 09:46 Calcium 9.4 mg/dL (8.4-10.2) 02/24/21 09:46 Total Bilirubin 0.20 mg/dL (0.1-1.2) 02/24/21 09:46 AST 16 units/L (5-40) 02/24/21 09:46 ALT 9 units/L (7-56) 02/24/21 09:46 Alkaline Phosphatase 62 units/L (35-129) 02/24/21 09:46 Total Protein 7.1 g/dL (6.3-8.2) 02/24/21 09:46 Albumin 4.2 g/dL (3.9-5) 02/24/21 09:46 Albumin/Globulin Ratio 1.4 % 02/24/21 09:46 Triglycerides 84 mg/dL (2-149) 02/24/21 09:46 Cholesterol 128 mg/dL (50-199) 02/24/21 09:46 LDL Cholesterol Direct 64 mg/dL (50-130) 02/24/21 09:46 HDL Cholesterol 58 mg/dL (40-59) 02/24/21 09:46 Cholesterol/HDL Ratio 2.20 % 02/24/21 09:46 TSH 1.590 mlU/mL (0.270-4.200) 02/24/21 09:46 Urine Color Straw (Yellow) 02/22/21 Unknown Urine Turbidity Clear (Clear) 02/22/21 Unknown Urine pH 6.0 (5.0-7.0) 02/22/21 Unknown Ur Specific [place] 1.009 (1.003-1.030) 02/22/21 Unknown Urine Protein <15 mg/dl mg/dL (Negative) 02/22/21 Unknown Urine Glucose (UA) Neg mg/dL (Negative) 02/22/21 Unknown Urine Ketones Neg mg/dL (Negative) 02/22/21 Unknown Urine Blood Neg (Negative) 02/22/21 Unknown Urine Nitrite Neg (Negative) 02/22/21 Unknown Urine Bilirubin Neg (Negative) 02/22/21 Unknown Urine Urobilinogen < 2.0 mg/dL (<2.0) 02/22/21 Unknown Ur Leukocyte Esterase Neg (Negative) 02/22/21 Unknown Urine WBC (Auto) 1.0 /HPF (0.0-6.0) 02/22/21 Unknown Urine RBC (Auto) 1.0 /HPF (0.0-6.0) 02/22/21 Unknown U Epithel Cells (Auto) < 1.0 /HPF (0-13.0) 02/22/21 Unknown Urine Bacteria (Auto) 1+ /HPF (Negative) 02/22/21 Unknown Salicylates < 0.3 mg/dL (2.8-20.0) L 02/22/21 21:48 Urine Opiates Screen Presumptive negative 02/22/21 Unknown Urine Methadone Screen Presumptive negative 02/22/21 Unknown Acetaminophen 5.0 ug/mL (10.0-30.0) L 02/22/21 21:48 Ur Barbiturates Screen Presumptive negative 02/22/21 Unknown Valproic Acid 40.1 ug/mL (50-100) L 02/28/21 13:06 Ur Phencyclidine Scrn Presumptive negative 02/22/21 Unknown Ur Amphetamines Screen Presumptive negative 02/22/21 Unknown U Benzodiazepines Scrn Presumptive negative 02/22/21 Unknown Urine Cocaine Screen Presumptive negative 02/22/21 Unknown U Marijuana (THC) Screen Presumptive negative 02/22/21 Unknown Drugs of Abuse Note Disclamer 02/22/21 Unknown Plasma/Serum Alcohol < 0.01 % (0-0.07) 02/22/21 21:48 Coronavirus (PCR) Negative (Negative) 02/23/21 Unknown Last Vital Signs Temp 98.1 F 03/04/21 22:00 Pulse 75 03/04/21 22:00 Resp 18 03/04/21 22:00 BP 103/78 03/04/21 22:00 Pulse Ox 97 03/04/21 22:00
--- NOTE | 2021-03-05 09:08 | Discharge Summary ---
Providers - Providers Date of Admission: 02/23/21 21:45 Date of discharge: 03/05/21 Attending physician: NHUNG UNDERWOOD MD 02/24/21 09:32 Consult to Physician [CONS] Routine Comment: Consulting Provider: GERMÁN HAMMOND Physician Instructions: Reason For Exam: manage medical conditions Primary care physician: CEMENTER Hospitalization Reason for admission: Psychopathological interference Condition: Good Hospital course: The patient was provided inpatient psychiatric treatment with safe and supporti ve environment, group/individual therapy, psychiatric medication, medication adjustment, adverse effect monitor, medical evaluation, medical treatment, social service assessment, social support meeting, placement assessment and psycho-education. The patients mood, behavior, compliance to treatment and appreciation on family/social support are improved and stabilized. At the time of discharge, the patient no endangering behavior and no debilitating adverse effects. Over 35 minutes spent for discharge process, education and behavioral counselling. Disposition: DC- TO HOME OR SELFCARE Allergies/Adverse Reactions: Allergies No Known Allergies Allergy (Verified 07/15/20 00:58) Vital Signs: Last Vital Signs Temp 98.1 F 03/04/21 22:00 Pulse 75 03/04/21 22:00 Resp 18 03/04/21 22:00 BP 103/78 03/04/21 22:00 Pulse Ox 97 03/04/21 22:00 Last Lab: Laboratory Last Values WBC 7.1 K/mm3 (4.5-11.0) 02/24/21 09:46 RBC 4.79 M/mm3 (3.65-5.03) 02/24/21 09:46 Hgb 13.7 gm/dl (11.8-15.2) 02/24/21 09:46 Hct 41.5 % (35.5-45.6) 02/24/21 09:46 MCV 87 fl (84-94) 02/24/21 09:46 MCH 29 pg (28-32) 02/24/21 09:46 MCHC 33 % (32-34) 02/24/21 09:46 RDW 13.5 % (13.2-15.2) 02/24/21 09:46 Plt Count 201 K/mm3 (140-440) 02/24/21 09:46 Lymph % (Auto) 20.5 % (13.4-35.0) 02/24/21 09:46 [place] % (Auto) 8.1 % (0.0-7.3) H 02/24/21 09:46 Eos % (Auto) 3.6 % (0.0-4.3) 02/24/21 09:46 Baso % (Auto) 0.2 % (0.0-1.8) 02/24/21 09:46 Lymph # (Auto) 1.4 K/mm3 (1.2-5.4) 02/24/21 09:46 [place] # (Auto) 0.6 K/mm3 (0.0-0.8) 02/24/21 09:46 Eos # (Auto) 0.3 K/mm3 (0.0-0.4) 02/24/21 09:46 Baso # (Auto) 0.0 K/mm3 (0.0-0.1) 02/24/21 09:46 Seg Neutrophils % 67.6 % (40.0-70.0) 02/24/21 09:46 Seg Neutrophils # 4.8 K/mm3 (1.8-7.7) 02/24/21 09:46 Sodium 139 mmol/L (137-145) 02/24/21 09:46 Potassium 4.3 mmol/L (3.6-5.0) 02/24/21 09:46 Chloride 104.0 mmol/L (98-107) 02/24/21 09:46 Carbon Dioxide 25 mmol/L (22-30) 02/24/21 09:46 Anion Gap 14 mmol/L 02/24/21 09:46 BUN 9 mg/dL (9-20) 02/24/21 09:46 Creatinine 1.0 mg/dL (0.8-1.3) 02/24/21 09:46 Estimated GFR > 60 ml/min 02/24/21 09:46 BUN/Creatinine Ratio 9 % 02/24/21 09:46 Glucose 81 mg/dL (75-100) 02/24/21 09:46 POC Glucose 83 mg/dL (70-105) 02/24/21 11:38 Hemoglobin A1c 5.7 % (4-6) 02/24/21 09:46 Calcium 9.4 mg/dL (8.4-10.2) 02/24/21 09:46 Total Bilirubin 0.20 mg/dL (0.1-1.2) 02/24/21 09:46 AST 16 units/L (5-40) 02/24/21 09:46 ALT 9 units/L (7-56) 02/24/21 09:46 Alkaline Phosphatase 62 units/L (35-129) 02/24/21 09:46 Total Protein 7.1 g/dL (6.3-8.2) 02/24/21 09:46 Albumin 4.2 g/dL (3.9-5) 02/24/21 09:46 Albumin/Globulin Ratio 1.4 % 02/24/21 09:46 Triglycerides 84 mg/dL (2-149) 02/24/21 09:46 Cholesterol 128 mg/dL (50-199) 02/24/21 09:46 LDL Cholesterol Direct 64 mg/dL (50-130) 02/24/21 09:46 HDL Cholesterol 58 mg/dL (40-59) 02/24/21 09:46 Cholesterol/HDL Ratio 2.20 % 02/24/21 09:46 TSH 1.590 mlU/mL (0.270-4.200) 02/24/21 09:46 Urine Color Straw (Yellow) 02/22/21 Unknown Urine Turbidity Clear (Clear) 02/22/21 Unknown Urine pH 6.0 (5.0-7.0) 02/22/21 Unknown Ur Specific [place] 1.009 (1.003-1.030) 02/22/21 Unknown Urine Protein <15 mg/dl mg/dL (Negative) 02/22/21 Unknown Urine Glucose (UA) Neg mg/dL (Negative) 02/22/21 Unknown Urine Ketones Neg mg/dL (Negative) 02/22/21 Unknown Urine Blood Neg (Negative) 02/22/21 Unknown Urine Nitrite Neg (Negative) 02/22/21 Unknown Urine Bilirubin Neg (Negative) 02/22/21 Unknown Urine Urobilinogen < 2.0 mg/dL (<2.0) 02/22/21 Unknown Ur Leukocyte Esterase Neg (Negative) 02/22/21 Unknown Urine WBC (Auto) 1.0 /HPF (0.0-6.0) 02/22/21 Unknown Urine RBC (Auto) 1.0 /HPF (0.0-6.0) 02/22/21 Unknown U Epithel Cells (Auto) < 1.0 /HPF (0-13.0) 02/22/21 Unknown Urine Bacteria (Auto) 1+ /HPF (Negative) 02/22/21 Unknown Salicylates < 0.3 mg/dL (2.8-20.0) L 02/22/21 21:48 Urine Opiates Screen Presumptive negative 02/22/21 Unknown Urine Methadone Screen Presumptive negative 02/22/21 Unknown Acetaminophen 5.0 ug/mL (10.0-30.0) L 02/22/21 21:48 Ur Barbiturates Screen Presumptive negative 02/22/21 Unknown Valproic Acid 40.1 ug/mL (50-100) L 02/28/21 13:06 Ur Phencyclidine Scrn Presumptive negative 02/22/21 Unknown Ur Amphetamines Screen Presumptive negative 02/22/21 Unknown U Benzodiazepines Scrn Presumptive negative 02/22/21 Unknown Urine Cocaine Screen Presumptive negative 02/22/21 Unknown U Marijuana (THC) Screen Presumptive negative 02/22/21 Unknown Drugs of Abuse Note Disclamer 02/22/21 Unknown Plasma/Serum Alcohol < 0.01 % (0-0.07) 02/22/21 21:48 Coronavirus (PCR) Negative (Negative) 02/23/21 Unknown - Discharge Diagnoses (1) Schizoaffective disorder Status: Acute Core Measure Documentation - Palliative Care Palliative Care/ Comfort Measures: Not Applicable - Core Measures Any of the following diagnoses?: none Exam - Constitutional Vitals: Temp Pulse Resp BP Pulse Ox 98.1 F 75 18 103/78 97 03/04/21 22:00 03/04/21 22:00 03/04/21 22:00 03/04/21 22:00 03/04/21 22:00 General appearance: Present: no acute distress - EENT Eyes: Present: PERRL, EOM intact ENT: hearing intact, clear oral mucosa - Neck Neck: Present: supple, normal ROM - Respiratory Respiratory effort: normal - Abdominal Male genitourinary: Present: deferred - Integumentary Integumentary: Present: clear, warm, dry Plan Care Plan Goals: Goals: Maintain good and stable mental health. Plan of Treatment: The patient should be compliant with medications, not to use drugs and not to drink alcohol. The patient understands that if suicidal ideas, homicidal ideas, or any endangering thoughts arise, the patient should immediately seek for emergent assistance including but not limited to crisis hot line and emergency room. Follow up with outpatient Psychiatrist and PCP within 7 - 14 days of discharge. Follow up with: PRIMARY CARE,MD [Primary Care Provider] - 3-5 Days Prescriptions: Benztropine [Cogentin] 0.5 mg PO BID #[address] [Depakote Dr] 500 mg PO BID #60 tablet
[2021-03-05] MEDS: HALOPERIDOL 2 MG TAB PO SCH (09:27)
[2021-03-05] MEDS: PANTOPRAZOLE 40 MG TAB PO SCH (09:28)
[2021-03-05] MEDS: ARIPiprazole 10 MG TAB PO SCH (09:28)
[2021-03-05] MEDS: metFORMIN 500 MG TAB PO SCH (09:28)
[2021-03-05] MEDS: BENZTROPINE 1 MG TAB PO SCH (09:28)
[2021-03-05] MEDS: DIVALPROEX DR 500 MG TAB PO SCH (09:28)
== END 2021-03-05 12:00 | disposition home or self-care (01) | DRG 885 ==
LOC: ED 21:31 → 5A 02-23 21:45
PROVIDERS: ADMIT Psychiatry & Neurology Psychiatry; ATTEND Psychiatry & Neurology Psychiatry
DX: F25.9 Schizoaffective disorder, unspecified (principal); F43.10 Post-traumatic stress disorder, unspecified; E11.9 Type 2 diabetes mellitus without complications; Z79.899 Other long term (current) drug therapy; Z79.891 Long term (current) use of opiate analgesic; Z79.84 Long term (current) use of oral hypoglycemic drugs; Z20.822 Contact with and (suspected) exposure to COVID-19
CPT/HCPCS: 36415; 80048; 80053; 80061; 80164; 80307; 80320; 81001; 82962; 83036; 84443; 85025; G0378; G0480; Q0177; U0003

== ENCOUNTER 2021-11-22 13:11 | Emergency (ER) | payer MEDICARE ==
[2021-11-22 15:58] LABS: Basophils # (Auto) 0.1 K/mm3 (0.0-0.1); Basophils % (Auto) 0.6 % (0.0-1.8); Eosinophils # (Auto) 0.1 K/mm3 (0.0-0.4); Eosinophils % (Auto) 1.1 % (0.0-4.3); Hematocrit 39.3 % (35.5-45.6); Hemoglobin 13.9 gm/dl (11.8-15.2); Lymphocytes # (Auto) 1.6 K/mm3 (1.2-5.4); Lymphocytes % (Auto) 16.1 % (13.4-35.0); Mean Corpuscular HGB Conc 35 % (32-34); Mean Corpuscular Volume 86 fl (84-94); Monocytes # (Auto) 0.8 K/mm3 (0.0-0.8); Monocytes % (Auto) 8.5 % (0.0-7.3); Platelet Count 206 K/mm3 (140-440); Red Blood Count 4.58 M/mm3 (3.65-5.03); Red Cell Distribution Width 13.9 % (13.2-15.2)
[2021-11-22 16:11] LABS: BUN/Creatinine Ratio 8; Blood Urea Nitrogen 7 mg/dL (9-20); Calcium 9.7 mg/dL (8.4-10.2); Hemolysis Index 12
[2021-11-22 16:43] LABS: Bacteria,Urine 1+ /HPF (Negative); Bilirubin,Urine NEG (Negative); Blood,Urine NEG (Negative); Color,Urine Straw (Yellow); Protein,Urine <15 mg/dL mg/dL (Negative); Urobilinogen,Urine < 2.0 mg/dL (<2.0)
--- NOTE | 2021-11-22 16:50 | Emergency Department Report ---
ED Psych HPI - General Chief Complaint: Psych Stated Complaint: TREMBLING/SCHRIOPEZNA Time Seen by Provider: 11/22/21 16:01 Source: patient Mode of arrival: Ambulatory - History of Present Illness Initial Comments: Pt checked in for "trembling/schizophrenia". Then pt standing at the triage window, hands shaking and saying that he feels suicidal. States has been feeling SI x a few months. States has been SI all his life. MD Complaint: suicidal ideation, feels depressed -: month(s) Associated Psychiatric Symptoms: depression, suicidal ideation History of same: Yes Quality: constant Worsens With: none Context: recent drug abuse Associated Symptoms: denies: denies other symptoms Treatments Prior to Arrival: none - Related Data Home Medications Medication Instructions Recorded Confirmed Last Taken ARIPiprazole [Abilify TAB] 5 mg PO DAILY 07/13/20 02/22/21 Unknown hydrOXYzine PAMOATE [Vistaril] 25 mg PO TID 07/13/20 02/22/21 07/12/20 metFORMIN [Glucophage] 500 mg PO BID 07/13/20 02/22/21 1 Day Ago ~07/12/20 Pantoprazole [Protonix] 40 mg PO QAM 02/22/21 02/22/21 Unknown Ramelteon 8 mg PO QHS 02/22/21 02/22/21 Unknown Previous Rx's Medication Instructions Recorded Last Taken Type Benztropine [Cogentin] 0.5 mg PO BID #60 tablet 03/05/[address] [Depakote Dr] 500 mg PO BID #60 tablet 03/05/21 Unknown Rx haloperidoL [Haldol] 5 mg PO BID #60 tablet 03/05/21 Unknown Rx Allergies Allergy/AdvReac Type Severity Reaction Status Date / Time No Known Allergies Allergy Verified 07/15/20 00:58 ED Review of Systems ROS: Stated complaint: TREMBLING/SCHRIOPEZNA Other details as noted in HPI Constitutional: denies: chills, fever Eyes: denies: eye pain, eye discharge, vision change ENT: denies: ear pain, throat pain Respiratory: denies: cough, shortness of breath, wheezing Cardiovascular: denies: chest pain, palpitations Endocrine: no symptoms reported Gastrointestinal: denies: abdominal pain, nausea, diarrhea Genitourinary: denies: urgency, dysuria Musculoskeletal: denies: back pain, joint swelling, arthralgia Skin: denies: rash, lesions Neurological: denies: headache, weakness, paresthesias Psychiatric: denies: anxiety, depression Hematological/Lymphatic: denies: easy bleeding, easy bruising ED Past Medical Hx - Past Medical History Hx Congestive Heart Failure: No Hx Diabetes: Yes (dm ii) Hx Renal Disease: No Hx Arthritis: No Hx Seizures: No Hx Psychiatric Treatment: Yes (Schizoaffective) Hx Asthma: No Hx COPD: No Hx Dementia: No - Surgical History Hx Cholecystectomy: No Hx Appendectomy: No - Social History Smoking Status: Unknown if ever smoked - Medications Home Medications: Home Medications Medication Instructions Recorded Confirmed Last Taken Type ARIPiprazole [Abilify TAB] 5 mg PO DAILY 07/13/20 02/22/21 Unknown History hydrOXYzine PAMOATE [Vistaril] 25 mg PO TID 07/13/20 02/22/21 07/12/20 History metFORMIN [Glucophage] 500 mg PO BID 07/13/20 02/22/21 1 Day Ago History ~07/12/20 Pantoprazole [Protonix] 40 mg PO QAM 02/22/21 02/22/21 Unknown History Ramelteon 8 mg PO QHS 02/22/21 02/22/21 Unknown History Benztropine [Cogentin] 0.5 mg PO BID #60 tablet 03/05/[address] [Depakote Dr] 500 mg PO BID #60 tablet 03/05/21 Unknown Rx haloperidoL [Haldol] 5 mg PO BID #60 tablet 03/05/21 Unknown Rx ED Physical Exam - General Limitations: No Limitations General appearance: alert, in no apparent distress - Head Head exam: Present: atraumatic, normocephalic - Eye Eye exam: Present: normal appearance - ENT ENT exam: Present: mucous membranes moist - Neck Neck exam: Present: normal inspection - Respiratory Respiratory exam: Present: normal lung sounds bilaterally. Absent: respiratory distress - Cardiovascular Cardiovascular Exam: Present: normal rhythm, tachycardia. Absent: systolic murmur, diastolic murmur, rubs, gallop - GI/Abdominal GI/Abdominal exam: Present: soft, normal bowel sounds - Rectal Rectal exam: Present: deferred - Extremities Exam Extremities exam: Present: normal inspection - Back Exam Back exam: Present: normal inspection - Neurological Exam Neurological exam: Present: alert, oriented X3 - Psychiatric Psychiatric exam: Present: depressed, anxious, suicidal ideation - Skin Skin exam: Present: warm, dry, intact, normal color. Absent: rash ED Course Vital Signs 11/22/21 11/22/21 11/22/21 14:14 17:14 20:10 Temperature 98.6 F Pulse Rate 108 H Respiratory 18 18 Rate Blood Pressure 177/105 [Right] O2 Sat by Pulse 96 98 96 Oximetry 11/22/21 11/22/21 11/23/21 20:27 23:58 10:29 Temperature 98.5 F 98.6 F 97.8 F Pulse Rate 90 76 81 Respiratory 18 18 18 Rate Blood Pressure 217/130 129/71 123/75 [Right] O2 Sat by Pulse 96 96 97 Oximetry ED Medical Decision Making - Lab Data Result diagrams: 11/22/21 15:38 11/22/21 15:38 Critical care attestation.: If time is entered above; I have spent that time in minutes in the direct care of this critically ill patient, excluding procedure time. ED Disposition Clinical Impression: Schizoaffective disorder, PTSD (post-traumatic stress disorder) Disposition: [address] [place] [address] Is pt being admited?: No Does the pt Need Aspirin: No Condition: Stable Additional Instructions: OUTPATIENT MENTAL HEALTH RESOURCES [facility], [facility] Mal Leach MD: [address] [place] [address] [place], [place] [id number] [facility]: [facility] [employer] [address] [place] [address] [place] [address] [phone] [facility]: [facility] Healthcare: [address] [facility] [address] [facility] [place] [address] [facility] [id number] [facility]: Denys Hernandez MD: [address] [facility] [address] [facility] [id number] [facility]: [address] [place] [address] [phone] CRISIS AND ACCESS LINE: * Referrals: PATY GARCIA MD [Primary Care Provider] - 3-5 Days
[2021-11-22 17:16] LABS: Amphetamine Screen,Urine Negative; Benzodiazepines Screen,Urine Negative; Cannabinoid Screen,Urine Negative; Cocaine Screen,Urine Negative; Methadone Screen,Urine Negative; Opiate Screen,Urine Negative
[2021-11-22] MEDS ORDERED: LORazepam 2 MG/ML VIAL IV ONE (19:40)
[2021-11-22] MEDS ORDERED: LORazepam 2 MG/ML VIAL IM ONE (19:52)
--- NOTE | 2021-11-23 07:54 | Emergency Department Report ---
Blank Doc - Documentation Documentation: There were no events throughout the course of the night. Patient is resting. Labs have been reviewed. Patient is medically cleared. The absence of a salicylate level was noted and lab has been called. We are still awaiting psychiatric evaluation and disposition. Patient is medically cleared at this time despite the absence of the salicylate level. Patient does not have evidence of tachycardia and tachypnea or history of overdose that would suggest acute salicylate toxicity.
[2021-11-23 10:38] VITALS: BP 123/75
--- NOTE | 2021-11-23 10:56 | Consultation ---
History of Present Illness - Reason for Consult Consult date: 11/23/21 Reason for consult: hallucinations - History of Present Psychiatric Illness The patient was seen today. He is a/o x 1. He is shaking. His thoughts are disorganized. He has poor insight. He says he came to the hospital because he was "having telekinesis from risperidone." He says he feels suicidal. He says the risperidone is making him tremble. He then tells me that he only takes abilify and celexa. I asked why did he take the risperidone, he says "they switched my meds." The patient says he has a history of schizophrenia. He denies any illicit drugs, alcohol or nicotine. PAST PSYCHIATRIC HISTORY Diagnoses: Schizophrenia Suicide attempts or Self-harm behavior: denies Prior psychiatric hospitalizations: yes Substance Abuse history: Denies Previous psychiatric medications tried: abilify, seroquel, risperidone Outpatient treatment: yes PAST MEDICAL HISTORY: None report Family Psychiatric History: None reported or documented SOCIAL HISTORY Unable to obtain REVIEW OF SYSTEMS Constitutional: Negative for weight loss ENT: Negative for stridor Respiratory: Negative for cough or hemoptysis All other systems reviewed and are negative MENTAL STATUS EXAMINATION General Appearance and Behavior: Age appropriate, good hygiene, wearing jeri ropriate clothes, fair eye contact, cooperative, trembling Cooperation: Participating/engaged, but Guarded Psychomotor Behavior: Psychomotor normal Mood: depressed Affect and affective range: congruent with stated mood Thought Process: illogical Thought Content: responding to internal stimuli, delusions Speech: normal tone and pace Suicidal Ideation: Yes Homicidal Ideation: Denies HI Hallucinations: Auditory Impulse Control: limited Insight and Judgment: Poor insight and judgment Memory: Limited Attention: Divided Orientation: Alert, oriented Assessment and Plan Schizophrenia Treatment 1013 Abilify 5mg po daily Celexa 10mg po daily Depakote DR 125mg po BID Cogentin 0.5mg po BID Sitter: Per primary Medical: Per primary Disposition: Recommend acute psychiatric inpatient treatment Will follow. Thank you for this consult Case staffed with Dr. Walters Medications and Allergies Allergies Allergy/AdvReac Type Severity Reaction Status Date / Time No Known Allergies Allergy Verified 07/15/20 00:58 Home Medications Medication Instructions Recorded Confirmed Last Taken Type ARIPiprazole [Abilify TAB] 5 mg PO DAILY 07/13/20 02/22/21 Unknown History hydrOXYzine PAMOATE [Vistaril] 25 mg PO TID 07/13/20 02/22/21 07/12/20 History metFORMIN [Glucophage] 500 mg PO BID 07/13/20 02/22/21 1 Day Ago History ~07/12/20 Pantoprazole [Protonix] 40 mg PO QAM 02/22/21 02/22/21 Unknown History Ramelteon 8 mg PO QHS 02/22/21 02/22/21 Unknown History Benztropine [Cogentin] 0.5 mg PO BID #60 tablet 03/05/[address] [Depakote Dr] 500 mg PO BID #60 tablet 03/05/21 Unknown Rx haloperidoL [Haldol] 5 mg PO BID #60 tablet 03/05/21 Unknown Rx Mental Status Exam - Vital signs Last Vital Signs Temp 97.8 F 11/23/21 10:29 Pulse 81 11/23/21 10:29 Resp 18 11/23/21 10:29 BP 123/75 11/23/21 10:29 Pulse Ox 97 11/23/21 10:29 Results Result Diagrams: 11/22/21 15:38 11/22/21 15:38 Abnormal lab results 11/22/21 11/22/21 11/22/21 Range/Units 15:38 15:38 15:38 MCHC 35 H (32-34) % [place] % (Auto) 8.5 H (0.0-7.3) % Seg Neutrophils % 73.7 H (40.0-70.0) % BUN 7 L (9-20) mg/dL Salicylates < 0.3 L (2.8-20.0) mg/dL Acetaminophen (10.0-30.0) ug/mL 11/22/21 Range/Units 15:38 MCHC (32-34) % [place] % (Auto) (0.0-7.3) % Seg Neutrophils % (40.0-70.0) % BUN (9-20) mg/dL Salicylates (2.8-20.0) mg/dL Acetaminophen 5.0 L (10.0-30.0) ug/mL All other labs normal.
[2021-11-23] MEDS ORDERED: DIVALPROEX DR 125 MG TAB PO SCH (12:00)
[2021-11-23] MEDS ORDERED: ARIPiprazole 5 MG TAB PO SCH (12:00)
[2021-11-23] MEDS ORDERED: BENZTROPINE 0.5 MG TAB PO SCH (12:00)
[2021-11-23] MEDS ORDERED: CITALOPRAM 10 MG TAB PO SCH (12:00)
== END 2021-11-23 17:06 ==
LOC: ED 13:11
DX: F20.9 Schizophrenia, unspecified (principal); E11.9 Type 2 diabetes mellitus without complications; Z20.822 Contact with and (suspected) exposure to COVID-19; Z79.899 Other long term (current) drug therapy
CPT/HCPCS: 36415; 80048; 80307; 81001; 84443; 85025; 96372; 99284; J2060; U0003; 80320; 96374; G0480

== ENCOUNTER 2021-11-23 16:08 | Inpatient (IN) | payer MEDICARE ==
[2021-11-23] MEDS: traZODone 50 MG TAB PO SCH (21:31)
[2021-11-24] MEDS ORDERED: hydrOXYzine PAMOATE 25 MG CAP PO PRN (09:08)
--- NOTE | 2021-11-24 09:08 | History and Physical Report ---
GP History & Physical - History of Present Illness Date of admission: 11/23/21 Date of Examination: 11/24/21 Reason for Admission: Danger to self, Failure of Outpatient Treatment, Severe anxiety/depression History of Present Illness: HPI: The patient was seen today. He is a/o x 1. He is shaking. His thoughts are disorganized. He has poor insight. He says he came to the hospital because he was "having telekinesis from risperidone." He says he feels suicidal. He says the risperidone is making him tremble. He then tells me that he only takes abilify and celexa. I asked why did he take the risperidone, he says "they switched my meds." The patient says he has a history of schizophrenia. He denies any illicit drugs, alcohol or nicotine. The patient was seen today. He is a 55y/o male whom I first rounded on in the ER. Today the patient is not shaking as much. He does endorse SI without a plan. He believes he is the [place] President or a world leader. The patient says he hears Alfredito and Manuel talking to him. PAST PSYCHIATRIC HISTORY Diagnoses: Schizophrenia Suicide attempts or Self-harm behavior: denies Prior psychiatric hospitalizations: yes Substance Abuse history: Denies Previous psychiatric medications tried: abilify, seroquel, risperidone Outpatient treatment: yes PAST MEDICAL HISTORY: None report Family Psychiatric History: None reported or documented SOCIAL HISTORY Unable to obtain REVIEW OF SYSTEMS Constitutional: Negative for weight loss ENT: Negative for stridor Respiratory: Negative for cough or hemoptysis All other systems reviewed and are negative MENTAL STATUS EXAMINATION General Appearance and Behavior: Age appropriate, good hygiene, wearing appropriate clothes, fair eye contact, cooperative, trembling Cooperation: Participating/engaged, but Guarded Psychomotor Behavior: Psychomotor normal Mood: depressed Affect and affective range: congruent with stated mood Thought Process: illogical Thought Content: responding to internal stimuli, delusions Speech: normal tone and pace Suicidal Ideation: Yes Homicidal Ideation: Denies HI Hallucinations: Auditory Impulse Control: limited Insight and Judgment: Poor insight and judgment Memory: Limited Attention: Divided Orientation: Alert, oriented Assessment and Plan Schizophrenia Treatment Plan Patient admitted for inpatient psychiatric evaluation, medication adjustment and close monitoring The patient's behavior, mood, sleep and appetite will be closely monitored. Patient enrolled in individual and group therapeutic sessions and encouraged to attend. Patient provided with a safe and structured environment. Patient's physical health needs will be addressed by the Hospitalist. Hospitalist Consulted Labs including CBC, CMP, Lipid profile and Hemoglobin A1C levels ordered for baseline reference Social Assessment will be completed and the [facility] Stripper will work with patient and family to ensure a suitable and safe disposition Medication adjustment will be made as clinically indicated Continue meds Usual Wellness Religious/Preservation: - Start Trazodone 50 mg po QHS & 50 mg po QHS PRN between 10 PM & 2 AM for insomnia - Start Melatonin 5 mg po QHS to promote circadian rhythm The patient agreed on the treatment plan, understood the risk, benefit, alternative treatment, potential consequence of no treatment, and gave informed consent. Estimated days: Post hospital care: primary care provider, psychiatric provider Case staffed with Dr. Walters Legal Status: Voluntary Reaction to Hospitalization: Accepting Medications and Allergies Allergies Allergy/AdvReac Type Severity Reaction Status Date / Time No Known Allergies Allergy Unverified 11/23/21 17:00 Home Medications Medication Instructions Recorded Confirmed Last Taken Type ARIPiprazole [Abilify TAB] 5 mg PO DAILY 11/23/21 11/23/21 11/23/21 12:16 History Benztropine [Cogentin] 0.5 mg PO BID 11/23/21 11/23/21 11/23/21 12:17 History Citalopram Hydrobromide 10 mg PO DAILY 11/23/21 11/23/21 11/23/21 12:17 History [Citalopram HBr] Divalproex Sodium [Depakote 125 mg PO BID 11/23/21 11/23/21 11/23/21 12:16 History Sprinkle] Pantoprazole [Protonix] 40 mg PO QDAY 11/23/21 11/23/21 Unknown History hydrOXYzine PAMOATE [Vistaril] 25 mg PO Q6HR PRN 11/23/21 11/23/21 Unknown Hist ory metFORMIN [Glucophage] 500 mg PO BID 11/23/21 11/23/21 Unknown History Active Meds: Active Medications Trazodone HCl (Trazodone 50 Mg Tab) 50 mg PO QHS KHURRAM Last Admin: 11/23/21 21:31 Dose: 50 mg Results - Results Labs/Vitals: Laboratory Last Values POC Glucose 86 mg/dL (70-105) 11/24/21 07:12 Last Vital Signs Temp 97.9 F 11/23/21 22:00 Pulse 73 11/23/21 22:00 Resp 18 11/23/21 22:00 BP 100/58 11/23/21 22:00 Pulse Ox 93 11/23/21 22:00 Physical Examination - Constitutional Vitals: Vital Signs Temp Pulse Resp BP Pulse Ox 97.9 F 73 18 100/58 93 11/23/21 22:00 11/23/21 22:00 11/23/21 22:00 11/23/21 22:00 11/23/21 22:00 Temperature -Last 24 Hours Temperature 97.9 F Temperature 97.7 F Temperature 98.6 F Mental Status Exam - Vital signs Last Vital Signs Temp 97.9 F 11/23/21 22:00 Pulse 73 11/23/21 22:00 Resp 18 11/23/21 22:00 BP 100/58 11/23/21 22:00 Pulse Ox 93 11/23/21 22:00 Physician Certification - Certification Statement Physician Certification Statement: This is an acknowledgement statement that Anthony Thacker is a 55 year old M who requires inpatient psychiatric admission for treatment which could reasonably be expected to improve the patient's condition for Estimated period of time patient will need to remain in the hospital: [ ] Plan for post-hospital care: [ ]
[2021-11-24] MEDS ORDERED: CITALOPRAM 10 MG TAB PO SCH (10:00)
[2021-11-24] MEDS ORDERED: ARIPiprazole 5 MG TAB PO SCH (10:00)
--- NOTE | 2021-11-24 10:37 | Consultation ---
History of Present Illness - Reason for Consult Consult date: 11/23/21 Medical management Requesting physician: NHUNG UNDERWOOD - History of Present Illness 55 YO Male with Obesity, GERD, DM, Metabolic Syndrome, Seizure Disorder, DM, Bipolar Disorder, Schizophrenia, MDD, PTSD admitted to [facility] for psychiatric stabilization. Consult placed by Dr. Underwood for medical management. Patient seen and evaluated in his room. Patient denies fever, chills, chest pain, palpitation productive cough, skin rash, recent contact, known exposure to COVID-19. No reported nursing events. Patient is at baseline level of cognition and function at this time. Past History Past Medical History: diabetes, hypertension, hyperlipidemia, seizures, other (See HPI) Past Surgical History: No surgical history, Other (Reviewed) Social history: no significant social history. denies: smoking, alcohol abuse, prescription drug abuse Family history: diabetes, hypertension Medications and Allergies Allergies Allergy/AdvReac Type Severity Reaction Status Date / Time No Known Allergies Allergy Unverified 11/23/21 17:00 Home Medications Medication Instructions Recorded Confirmed Last Taken Type ARIPiprazole [Abilify TAB] 5 mg PO DAILY 11/23/21 11/23/21 11/23/21 12:16 Histo ry Benztropine [Cogentin] 0.5 mg PO BID 11/23/21 11/23/21 11/23/21 12:17 History Citalopram Hydrobromide 10 mg PO DAILY 11/23/21 11/23/21 11/23/21 12:17 History [Citalopram HBr] Divalproex Sodium [Depakote 125 mg PO BID 11/23/21 11/23/21 11/23/21 12:16 History Sprinkle] Pantoprazole [Protonix] 40 mg PO QDAY 11/23/21 11/23/21 Unknown History hydrOXYzine PAMOATE [Vistaril] 25 mg PO Q6HR PRN 11/23/21 11/23/21 Unknown History metFORMIN [Glucophage] 500 mg PO BID 11/23/21 11/23/21 Unknown History Active Meds: Active Medications Aripiprazole (Aripiprazole 5 Mg Tab) 5 mg PO DAILY [facility]URRAM Benztropine Mesylate (Benztropine 0.5 Mg Tab) 0.5 mg PO BID KHURRAM Citalopram Hydrobromide (Citalopram 10 Mg Tab) 10 mg PO DAILY [facility] Divalproex Sodium (Divalproex Sprinkle 125 Mg Cap) 125 mg PO BID [facility] Hydroxyzine Pamoate (Hydroxyzine Pamoate 25 Mg Cap) 25 mg PO Q6H PRN PRN Reason: Anxiety Metformin HCl (Metformin 500 Mg Tab) 500 mg PO BIDDIAB [facility] Pantoprazole Sodium (Pantoprazole 40 Mg Tab) 40 mg PO QDAY [facility] Trazodone HCl (Trazodone 50 Mg Tab) 50 mg PO QHS [facility] Last Admin: 11/23/21 21:31 Dose: 50 mg Review of Systems Constitutional: no weight loss, no weight gain, no fever, no chills Ears, nose, mouth and throat: no ear pain, no tinnitis, no decreased hearing, no nose pain, no nasal discharge, no sinus pain Cardiovascular: no chest pain, no orthopnea, no edema, no syncope, no lightheadedness Respiratory: no cough, no cough with sputum, no excessive sputum, no hemoptysis Gastrointestinal: no nausea, no diarrhea, no change in bowel habits Genitourinary Male: no hematuria, no discharge, no urinary frequency Rectal: no pain, no incontinence, no bleeding Musculoskeletal: no arm numbness/tingling, no shooting leg pain, no leg numbness/tingling Integumentary: no rash, no pruritis, no redness Neurological: no head injury, no transient paralysis, no weakness, no numbness, no tingling, no syncope, no tremors Psychiatric: anxiety, depression, hopelessness Endocrine: no cold intolerance, no polyphagia, no polyuria, no nocturia Hematologic/Lymphatic: no easy bruising, no lymphedema Allergic/Immunologic: no urticaria, no allergic rhinitis, no wheezing, no angioedema Exam - Constitutional Vitals: Temp Pulse Resp BP Pulse Ox 97.4 F L 74 18 100/71 97 11/24/21 08:26 11/24/21 08:26 11/24/21 08:26 11/24/21 08:26 11/24/21 08:26 General appearance: Present: no acute distress, obese - EENT Eyes: Present: PERRL ENT: hearing intact, clear oral mucosa - Neck Neck: Present: supple, normal ROM - Respiratory Respiratory effort: normal Respiratory: bilateral: CTA - Cardiovascular Heart Sounds: Present: S1 & S2. Absent: rub, click - Extremities Extremities: pulses symmetrical, No edema Peripheral Pulses: within normal limits - Abdominal General gastrointestinal: Present: soft, non-tender, non-distended, normal bowel sounds Male genitourinary: Present: normal - Integumentary Integumentary: Present: clear, warm, dry - Musculoskeletal Musculoskeletal: gait normal, strength equal bilaterally - Psychiatric Psychiatric: appropriate mood/affect, intact judgment & insight - Neurologic Neurologic: CNII-XII intact, moves all extremities Assessment and Plan - Patient Problems (1) Diabetes Current Visit: Yes Status: Acute Plan to address problem: Consistent carbohydrate diet, Accu-Chek, insulin protocol, hypoglycemia protocol. Hemoglobin A1c ordered and pending at this time. (2) GERD (gastroesophageal reflux disease) Current Visit: Yes Status: Acute Qualifiers: Esophagitis presence: without esophagitis Qualified Code(s): K21.9 - Gastro-esophageal reflux disease without esophagitis Plan to address problem: PPI therapy, supportive care. Outpatient GI follow-up for further care and evaluation. (3) Seizure disorder Current Visit: Yes Status: Acute Plan to address problem: Continue current therapy, neuro check, seizure precautions. (4) Metabolic syndrome Current Visit: Yes Status: Acute (5) Obesity (BMI 30.0-34.9) Current Visit: Yes Status: Acute Plan to address problem: Balanced diet, increase physical activity discharge, low-cholesterol diet, statin therapy. (6) LETICIA (generalized anxiety disorder) Current Visit: Yes Status: Acute Plan to address problem: Benzodiazepine therapy as clinically indicated. (7) MDD (major depressive disorder) Current Visit: Yes Status: Acute Plan to address problem: Continue medical management. Further care as per mental health team. (8) Advance care planning Current Visit: Yes Status: Acute Plan to address problem: Disease education conducted, care plan discussed, diagnoses discussed, prognosis discussed, patient is full code. Patient acknowledges understanding and agreement with care plan, +30 minutes.
[2021-11-24] MEDS: PANTOPRAZOLE 40 MG TAB PO SCH (10:59)
[2021-11-24] MEDS: DIVALPROEX SPRINKLE 125 MG CAP PO SCH ×2 (10:59→21:12)
[2021-11-24] MEDS: BENZTROPINE 0.5 MG TAB PO SCH ×2 (10:59→21:09)
[2021-11-24] MEDS: metFORMIN 500 MG TAB PO SCH ×2 (11:00→17:25)
[2021-11-24] MEDS ORDERED: DEXTROSE 50% IN WATER (25GM) 50 ML SYRINGE IV PRN (15:45)
[2021-11-24] MEDS ORDERED: DEXTROSE 10% *Hypoglycemia IV PRN (15:57)
[2021-11-24] MEDS: INSULIN LISPRO 100 UNIT/ML SUB-Q SCH ×2 (17:25→21:51)
--- NOTE | 2021-11-24 19:57 | Progress Note ---
Assessment and Plan - Patient Problems (1) Diabetes Current Visit: Yes Status: Acute Plan to address problem: Consistent carbohydrate diet, Accu-Chek, insulin protocol, hypoglycemia protocol. Hemoglobin A1c ordered and pending at this time. (2) GERD (gastroesophageal reflux disease) Current Visit: Yes Status: Acute Qualifiers: Esophagitis presence: without esophagitis Qualified Code(s): K21.9 - Gastro-esophageal reflux disease without esophagitis Plan to address problem: PPI therapy, supportive care. Outpatient GI follow-up for further care and evaluation. (3) Seizure disorder Current Visit: Yes Status: Acute Plan to address problem: Continue current therapy, neuro check, seizure precautions. (4) Metabolic syndrome Current Visit: Yes Status: Acute (5) Obesity (BMI 30.0-34.9) Current Visit: Yes Status: Acute Plan to address problem: Balanced diet, increase physical activity discharge, low-cholesterol diet, statin therapy. (6) LETICIA (generalized anxiety disorder) Current Visit: Yes Status: Acute Plan to address problem: Benzodiazepine therapy as clinically indicated. (7) MDD (major depressive disorder) Current Visit: Yes Status: Acute Plan to address problem: Continue medical management. Further care as per mental health team. (8) Advance care planning Current Visit: Yes Status: Acute Plan to address problem: Disease education conducted, care plan discussed, diagnoses discussed, prognosis discussed, patient is full code. Patient acknowledges understanding and agreement with care plan, +30 minutes. History Interval history: 55 YO Male with Obesity, GERD, DM, Metabolic Syndrome, Seizure Disorder, DM, Bipolar Disorder, Schizophrenia, MDD, PTSD admitted to [facility] for psych iatric stabilization. Consult placed by Dr. Bueno for medical management. Patient seen and evaluated in the recreation room. No reported nursing events. Patient is at baseline level of cognition and function at this time. Hospitalist Physical - Constitutional Vitals: Temp Pulse Resp BP Pulse Ox 97.4 F L 74 18 100/71 97 11/24/21 08:26 11/24/21 08:26 11/24/21 08:26 11/24/21 08:26 11/24/21 08:26 General appearance: Present: no acute distress, obese - EENT Eyes: Present: PERRL, EOM intact ENT: hearing intact - Neck Neck: Present: supple - Respiratory Respiratory effort: normal Respiratory: bilateral: CTA - Cardiovascular Rhythm: regular Heart Sounds: Present: S1 & S2 - Extremities Extremities: no ischemia Peripheral Pulses: within normal limits - Abdominal General gastrointestinal: soft, non-tender, non-distended - Integumentary Integumentary: Present: clear, dry - Psychiatric Psychiatric: cooperative - Neurologic Neurologic: CNII-XII intact Results - Labs Labs: Laboratory Last Values POC Glucose 132 mg/dL (70-105) H 11/24/21 17:10 Damon/IV: Voiding Method Toilet Active Medications - Current Medications Current Medications: Generic Name Dose Route Start Last Admin Trade Name Freq PRN Reason Stop Dose Admin Aripiprazole 5 mg 11/24/21 10:00 11/24/21 10:59 Aripiprazole 5 Mg Tab PO 5 mg DAILY [facility]URRAM Administration Benztropine Mesylate 0.5 mg 11/24/21 10:00 11/24/21 10:59 Benztropine 0.5 Mg Tab PO 0.5 mg BID KHURRAM Administration Citalopram Hydrobromide 10 mg 11/24/21 10:00 11/24/21 10:59 Citalopram 10 Mg Tab PO 10 mg DAILY KHURRAM Administration Dextrose 0 ml 11/24/21 15:57 Dextrose 10% *Hypoglycemia IV PRN PRN Hypoglycemia Divalproex Sodium 125 mg 11/24/21 10:00 11/24/21 10:59 Divalproex Sprinkle 125 Mg Cap PO 125 mg BID [facility]URRAM Administration Hydroxyzine Pamoate 25 mg 11/24/21 09:08 Hydroxyzine Pamoate 25 Mg Cap PO Q6H PRN Anxiety Insulin Human Lispro 0 unit 11/24/21 16:30 11/24/21 17:25 Insulin Lispro 100 Unit/Ml SUB-Q Not Given ACHS KHURRAM Protocol Metformin HCl 500 mg 11/24/21 10:00 11/24/21 17:25 Metformin 500 Mg Tab PO 500 mg BIDDIAB K[facility]URRAM Administration Pantoprazole Sodium 40 mg 11/24/21 10:00 11/24/21 10:59 Pantoprazole 40 Mg Tab PO 40 mg QDAY [facility]URRAM Administration Trazodone HCl 50 mg 11/23/21 22:00 11/23/21 21:31 Trazodone 50 Mg Tab PO 50 mg QHS K[facility]URRAM Administration
[2021-11-24] MEDS: traZODone 50 MG TAB PO SCH (21:09)
[2021-11-25] MEDS: INSULIN LISPRO 100 UNIT/ML SUB-Q SCH ×4 (08:00→22:29)
--- NOTE | 2021-11-25 08:19 | Progress Note ---
Subjective Date of service: 11/25/21 Subjective Comment: 11/25/21: The patient was seen this morning. He is complaining of headache and toothache. He continues to endorse depression rating s 6/10, he denies any current suicidal ideation and continues to have have auditory hallucinations. REVIEW OF SYSTEMS Constitutional: Negative for weight loss ENT: Negative for stridor Respiratory: Negative for cough or hemoptysis All other systems reviewed and are negative MENTAL STATUS EXAMINATION General Appearance and Behavior: Age appropriate, good hygiene, wearing appropriate clothes, fair eye contact, cooperative, Cooperation: Participating/engaged, but Guarded Psychomotor Behavior: Psychomotor normal Mood: depressed Affect and affective range: congruent with stated mood Thought Process: illogical Thought Content: Hallucinations Speech: normal tone and pace Suicidal Ideation: Denies Homicidal Ideation: Denies HI Hallucinations: Auditory Impulse Control: limited Insight and Judgment: Poor insight and judgment Memory: Limited Attention: Divided Orientation: Alert, oriented Assessment and Plan Schizophrenia Treatment Plan Patient admitted for inpatient psychiatric evaluation, medication adjustment and close monitoring The patient's behavior, mood, sleep and appetite will be closely monitored. Patient enrolled in individual and group therapeutic sessions and encouraged to attend. Patient provided with a safe and structured environment. Patient's physical health needs will be addressed by the Hospitalist. Hospitalist Consulted Labs including CBC, CMP, Lipid profile and Hemoglobin A1C levels ordered for baseline reference Social Assessment will be completed and the Manager Reliability will work with patient and family to ensure a suitable and safe disposition Medication adjustment will be made as clinically indicated Continue meds Start Abilify 10mg po daily Start Celexa 20mg po daily Usual Wellness Denominational/Preservation: - Start Trazodone 50 mg po QHS & 50 mg po QHS PRN between 10 PM & 2 AM for insomnia - Start Melatonin 5 mg po QHS to promote circadian rhythm The patient agreed on the treatment plan, understood the risk, benefit, alt ernative treatment, potential consequence of no treatment, and gave informed consent. Estimated days: Post hospital care: primary care provider, psychiatric provider Case staffed with Dr. Walters Legal Status: Voluntary Reaction to Hospitalization: Accepting Medications and Allergies Medications and Allergies Allergies Allergy/AdvReac Type Severity Reaction Status Date / Time No Known Allergies Allergy Unverified 11/23/21 17:00 Home Medications Medication Instructions Recorded Confirmed Last Taken Type ARIPiprazole [Abilify TAB] 5 mg PO DAILY 11/23/21 11/23/21 11/23/21 12:16 History Benztropine [Cogentin] 0.5 mg PO BID 11/23/21 11/23/21 11/23/21 12:17 History Citalopram Hydrobromide 10 mg PO DAILY 11/23/21 11/23/21 11/23/21 12:17 History [Citalopram HBr] Divalproex Sodium [Depakote 125 mg PO BID 11/23/21 11/23/21 11/23/21 12:16 History Sprinkle] Pantoprazole [Protonix] 40 mg PO QDAY 11/23/21 11/23/21 Unknown History hydrOXYzine PAMOATE [Vistaril] 25 mg PO Q6HR PRN 11/23/21 11/23/21 Unknown History metFORMIN [Glucophage] 500 mg PO BID 11/23/21 11/23/21 Unknown History Active Meds: Active Medications Acetaminophen (Acetaminophen 325 Mg Tab) 650 mg PO Q6H PRN PRN Reason: Pain, Mild (1-3) Aripiprazole (Aripiprazole 5 Mg Tab) 5 mg PO DAILY [facility] Last Admin: 11/24/21 10:59 Dose: 5 mg Benztropine Mesylate (Benztropine 0.5 Mg Tab) 0.5 mg PO BID [facility] Last Admin: 11/24/21 21:09 Dose: 0.5 mg Citalopram Hydrobromide (Citalopram 10 Mg Tab) 10 mg PO DAILY [facility] Last Admin: 11/24/21 10:59 Dose: 10 mg Dextrose (Dextrose 10% *Hypoglycemia) 0 ml IV PRN PRN PRN Reason: Hypoglycemia Divalproex Sodium (Divalproex Sprinkle 125 Mg Cap) 125 mg PO BID [facility] Last Admin: 11/24/21 21:12 Dose: Not Given Hydroxyzine Pamoate (Hydroxyzine Pamoate 25 Mg Cap) 25 mg PO Q6H PRN PRN Reason: Anxiety Insulin Human Lispro (Insulin Lispro 100 Unit/Ml) 0 unit SUB-Q ACHS [facility]; Protocol Last Admin: 11/24/21 21:51 Dose: Not Given Metformin HCl (Metformin 500 Mg Tab) 500 mg PO BIDDIAB [facility] Last Admin: 11/24/21 17:25 Dose: 500 mg Pantoprazole Sodium (Pantoprazole 40 Mg Tab) 40 mg PO QDAY [facility] Last Admin: 11/24/21 10:59 Dose: 40 mg Trazodone HCl (Trazodone 50 Mg Tab) 50 mg PO QHS [facility] Last Admin: 11/24/21 21:09 Dose: 50 mg Results - Results Labs/Vitals: Laboratory Last Values POC Glucose 109 mg/dL (70-105) H 11/24/21 19:54 Last Vital Signs Temp 98.8 F 11/24/21 19:16 Pulse 73 11/24/21 19:16 Resp 18 11/24/21 19:16 BP 120/77 11/24/21 19:16 Pulse Ox 95 11/24/21 19:16
[2021-11-25] MEDS: PANTOPRAZOLE 40 MG TAB PO SCH (10:45)
[2021-11-25] MEDS: BENZTROPINE 0.5 MG TAB PO SCH ×2 (10:45→21:10)
[2021-11-25] MEDS: ARIPiprazole 10 MG TAB PO SCH (10:45)
[2021-11-25] MEDS: CITALOPRAM 20 MG TAB PO SCH (10:45)
[2021-11-25] MEDS: metFORMIN 500 MG TAB PO SCH ×2 (10:45→19:55)
[2021-11-25] MEDS: ACETAMINOPHEN 325 MG TAB PO PRN (10:46)
[2021-11-25] MEDS: DIVALPROEX SPRINKLE 125 MG CAP PO SCH ×2 (12:23→21:10)
[2021-11-25] MEDS: traZODone 50 MG TAB PO SCH (21:10)
[2021-11-26] MEDS: INSULIN LISPRO 100 UNIT/ML SUB-Q SCH ×4 (08:00→22:08)
--- NOTE | 2021-11-26 09:08 | Progress Note ---
Subjective Date of service: 11/26/21 Subjective Comment: 11/25/21: The patient was seen this morning. He is complaining of headache and toothache. He continues to endorse depression rating s 6/10, he denies any current suicidal ideation and continues to have have auditory hallucinations. 11/26/21: The patient was seen this morning. He continues to be disorganized. States depression as 4/10 and anxiety as 8/10 " I fell kind of stressed." he denies nay current suicidal/homicidal ideation. Patient unable to answer AVHs stating " they say I fantasize." REVIEW OF SYSTEMS Constitutional: Negative for weight loss ENT: Negative for stridor Respiratory: Negative for cough or hemoptysis All other systems reviewed and are negative MENTAL STATUS EXAMINATION General Appearance and Behavior: Age appropriate, good hygiene, wearing appropriate clothes, fair eye contact, cooperative, Cooperation: Participating/engaged, but Guarded Psychomotor Behavior: Psychomotor normal Mood: depressed Affect and affective range: congruent with stated mood Thought Process: illogical Thought Content: Hallucinations Speech: normal tone and pace Suicidal Ideation: Denies Homicidal Ideation: Denies HI Hallucinations: Auditory Impulse Control: limited Insight and Judgment: Poor insight and judgment Memory: Limited Attention: Divided Orientation: Alert, oriented Assessment and Plan Schizophrenia Treatment Plan Patient admitted for inpatient psychiatric evaluation, medication adjustment and close monitoring The patient's behavior, mood, sleep and appetite will be closely monitored. Patient enrolled in individual and group therapeutic sessions and encouraged to attend. Patient provided with a safe and structured environment. Patient's physical health needs will be addressed by the Hospitalist. Hospitalist Consulted Labs including CBC, CMP, Lipid profile and Hemoglobin A1C levels ordered for baseline reference Social Assessment will be completed and the Building Code Administrator will work with patient and family to ensure a suitable and safe disposition Medication adjustment will be made as clinically indicated Continue meds Continue Abilify 10mg po daily Continue Celexa 20mg po daily Usual Wellness Oriental Orthodox/Preservation: - Start Trazodone 50 mg po QHS & 50 mg po QHS PRN between 10 PM & 2 AM for insomnia - Start Melatonin 5 mg po QHS to promote circadian rhythm The patient agreed on the treatment plan, understood the risk, benefit, alternative treatment, potential consequence of no treatment, and gave informed consent. Estimated days: Post hospital care: primary care provider, psychiatric provider Case staffed with Dr. Walters Legal Status: Voluntary Reaction to Hospitalization: Accepting Medications and Allergies Medications and Allergies Allergies Allergy/AdvReac Type Severity Reaction Status Date / Time No Known Allergies Allergy Unverified 11/23/21 17:00 Home Medications Medication Instructions Recorded Confirmed Last Taken Type ARIPiprazole [Abilify TAB] 5 mg PO DAILY 11/23/21 11/23/21 11/23/21 12:16 History Benztropine [Cogentin] 0.5 mg PO BID 11/23/21 11/23/21 11/23/21 12:17 History Citalopram Hydrobromide 10 mg PO DAILY 11/23/21 11/23/21 11/23/21 12:17 History [Citalopram HBr] Divalproex Sodium [Depakote 125 mg PO BID 11/23/21 11/23/21 11/23/21 12:16 History Sprinkle] Pantoprazole [Protonix] 40 mg PO QDAY 11/23/21 11/23/21 Unknown History hydrOXYzine PAMOATE [Vistaril] 25 mg PO Q6HR PRN 11/23/21 11/23/21 Unknown History metFORMIN [Glucophage] 500 mg PO BID 11/23/21 11/23/21 Unknown History Active Meds: Active Medications Acetaminophen (Acetaminophen 325 Mg Tab) 650 mg PO Q6H PRN PRN Reason: Pain, Mild (1-3) Last Admin: 11/25/21 10:46 Dose: 650 mg Aripiprazole (Aripiprazole 10 Mg Tab) 10 mg PO QDAY [facility] Last Admin: 11/25/21 10:45 Dose: 10 mg Benztropine Mesylate (Benztropine 0.5 Mg Tab) 0.5 mg PO BID [facility] Last Admin: 11/25/21 21:10 Dose: 0.5 mg Citalopram Hydrobromide (Citalopram 20 Mg Tab) 20 mg PO QDAY [facility] Last Admin: 11/25/21 10:45 Dose: 20 mg Dextrose (Dextrose 10% *Hypoglycemia) 0 ml IV PRN PRN PRN Reason: Hypoglycemia Divalproex Sodium (Divalproex Sprinkle 125 Mg Cap) 125 mg PO BID [facility] Last Admin: 11/25/21 21:10 Dose: 125 mg Hydroxyzine Pamoate (Hydroxyzine Pamoate 25 Mg Cap) 25 mg PO Q6H PRN PRN Reason: Anxiety Insulin Human Lispro (Insulin Lispro 100 Unit/Ml) 0 unit SUB-Q ACHS [facility]; Protocol Last Admin: 11/25/21 22:29 Dose: Not Given Metformin HCl (Metformin 500 Mg Tab) 500 mg PO BIDDIAB [facility] Last Admin: 11/25/21 19:55 Dose: Not Given Pantoprazole Sodium (Pantoprazole 40 Mg Tab) 40 mg PO QDAY [facility] Last Admin: 11/25/21 10:45 Dose: 40 mg Trazodone HCl (Trazodone 50 Mg Tab) 50 mg PO QHS [facility] Last Admin: 11/25/21 21:10 Dose: 50 mg Results - Results Labs/Vitals: Laboratory Last Values POC Glucose 94 mg/dL (70-105) 11/26/21 05:56 Last Vital Signs Temp 98.4 F 11/25/21 19:39 Pulse 68 11/25/21 19:39 Resp 17 11/25/21 19:39 BP 128/74 11/25/21 19:39 Pulse Ox 95 11/25/21 19:39
[2021-11-26] MEDS: ARIPiprazole 10 MG TAB PO SCH (10:34)
[2021-11-26] MEDS: metFORMIN 500 MG TAB PO SCH ×2 (10:34→17:25)
[2021-11-26] MEDS: BENZTROPINE 0.5 MG TAB PO SCH ×2 (10:34→21:35)
[2021-11-26] MEDS: DIVALPROEX SPRINKLE 125 MG CAP PO SCH ×2 (10:35→21:39)
[2021-11-26] MEDS: CITALOPRAM 20 MG TAB PO SCH (10:37)
[2021-11-26] MEDS: PANTOPRAZOLE 40 MG TAB PO SCH (10:37)
[2021-11-26] MEDS: traZODone 50 MG TAB PO SCH (21:35)
[2021-11-26 22:01] LABS: Basophils % (Auto) 0.4 % (0.0-1.8); Eosinophils # (Auto) 0.3 K/mm3 (0.0-0.4); Eosinophils % (Auto) 4.2 % (0.0-4.3); Hematocrit 41.4 % (35.5-45.6); Hemoglobin 13.8 gm/dl (11.8-15.2); Lymphocytes % (Auto) 24.7 % (13.4-35.0); Mean Corpuscular HGB Conc 33 % (32-34); Mean Corpuscular Volume 86 fl (84-94); Monocytes # (Auto) 0.7 K/mm3 (0.0-0.8); Monocytes % (Auto) 8.2 % (0.0-7.3); Platelet Count 222 K/mm3 (140-440); Red Cell Distribution Width 13.9 % (13.2-15.2)
[2021-11-26 22:21] LABS: Alanine Aminotransferase 9 units/L (7-56); Albumin 4.1 g/dL (3.9-5); BUN/Creatinine Ratio 13; Blood Urea Nitrogen 13 mg/dL (9-20); Calcium 9.5 mg/dL (8.4-10.2); Chol/HDL Ratio 2.78 %; HDL Cholesterol 57 mg/dL (40-59); Hemolysis Index 3; LDL Cholesterol,Direct 84 mg/dL (50-130)
[2021-11-27] MEDS: metFORMIN 500 MG TAB PO SCH ×2 (08:44→17:48)
[2021-11-27] MEDS: INSULIN LISPRO 100 UNIT/ML SUB-Q SCH ×4 (08:44→21:35)
--- NOTE | 2021-11-27 08:49 | Progress Note ---
Subjective Date of service: 11/27/21 Subjective Comment: 11/25/21: The patient was seen this morning. He is complaining of headache and toothache. He continues to endorse depression rating s 6/10, he denies any current suicidal ideation and continues to have have auditory hallucinations. 11/26/21: The patient was seen this morning. He continues to be disorganized. States depression as 4/10 and anxiety as 8/10 " I fell kind of stressed." he denies nay current suicidal/homicidal ideation. Patient unable to answer AVHs stating " they say I fantasize." 11/27/21: The patient was seen this morning. He reports doing well " I'm thankful for having a place to stay." He reports sleep and appetite as good. He denies any current suicidal/homicidal ideation but states he has fascinations about people and presidents. REVIEW OF SYSTEMS Constitutional: Negative for weight loss ENT: Negative for stridor Respiratory: Negative for cough or hemoptysis All other systems reviewed and are negative MENTAL STATUS EXAMINATION General Appearance and Behavior: Age appropriate, good hygiene, wearing appropriate clothes, fair eye contact, cooperative, Cooperation: Participating/engaged, but Guarded Psychomotor Behavior: Psychomotor normal Mood: depressed Affect and affective range: congruent with stated mood Thought Process: illogical Thought Content: Hallucinations Speech: normal tone and pace Suicidal Ideation: Denies Homicidal Ideation: Denies HI Hallucinations: Auditory Impulse Control: limited Insight and Judgment: Poor insight and judgment Memory: Limited Attention: Divided Orientation: Alert, oriented Assessment and Plan Schizophrenia Treatment Plan Patient admitted for inpatient psychiatric evaluation, medication adjustment and close monitoring The patient's behavior, mood, sleep and appetite will be closely monitored. Patient enrolled in individual and group therapeutic sessions and encouraged to attend. Patient provided with a safe and structured environment. Patient's physical health needs will be addressed by the Hospitalist. Hospitalist Consulted Labs including CBC, CMP, Lipid profile and Hemoglobin A1C levels ordered for baseline reference Social Assessment will be completed and the Oil Pipe Inspector Helper will work with patient and family to ensure a suitable and safe disposition Medication adjustment will be made as clinically indicated Continue meds Continue Abilify 10mg po daily Continue Celexa 20mg po daily Usual Wellness Shinto/Preservation: - Start Trazodone 50 mg po QHS & 50 mg po QHS PRN between 10 PM & 2 AM for insomnia - Start Melatonin 5 mg po QHS to promote circadian rhythm The patient agreed on the treatment plan, understood the risk, benefit, alternative treatment, potential consequence of no treatment, and gave informed consent. Estimated days: Post hospital care: primary care provider, psychiatric provider Case staffed with Dr. Walters Legal Status: Voluntary Reaction to Hospitalization: Accepting Medications and Allergies Medications and Allergies Allergies Allergy/AdvReac Type Severity Reaction Status Date / Time No Known Allergies Allergy Unverified 11/23/21 17:00 Home Medications Medication Instructions Recorded Confirmed Last Taken Type ARIPiprazole [Abilify TAB] 5 mg PO DAILY 11/23/21 11/23/21 11/23/21 12:16 History Benztropine [Cogentin] 0.5 mg PO BID 11/23/21 11/23/21 11/23/21 12:17 History Citalopram Hydrobromide 10 mg PO DAILY 11/23/21 11/23/21 11/23/21 12:17 History [Citalopram HBr] Divalproex Sodium [Depakote 125 mg PO BID 11/23/21 11/23/21 11/23/21 12:16 History Sprinkle] Pantoprazole [Protonix] 40 mg PO QDAY 11/23/21 11/23/21 Unknown History hydrOXYzine PAMOATE [Vistaril] 25 mg PO Q6HR PRN 11/23/21 11/23/21 Unknown History metFORMIN [Glucophage] 500 mg PO BID 11/23/21 11/23/21 Unknown History Active Meds: Active Medications Acetaminophen (Acetaminophen 325 Mg Tab) 650 mg PO Q6H PRN PRN Reason: Pain, Mild (1-3) Last Admin: 11/25/21 10:46 Dose: 650 mg Aripiprazole (Aripiprazole 10 Mg Tab) 10 mg PO QDAY [facility] Last Admin: 11/26/21 10:34 Dose: 10 mg Benztropine Mesylate (Benztropine 0.5 Mg Tab) 0.5 mg PO BID [facility] Last Admin: 11/26/21 21:35 Dose: 0.5 mg Citalopram Hydrobromide (Citalopram 20 Mg Tab) 20 mg PO QDAY [facility] Last Admin: 11/26/21 10:37 Dose: 20 mg Dextrose (Dextrose 10% *Hypoglycemia) 0 ml IV PRN PRN PRN Reason: Hypoglycemia Divalproex Sodium (Divalproex Sprinkle 125 Mg Cap) 125 mg PO BID [facility] Last Admin: 11/26/21 21:39 Dose: 125 mg Hydroxyzine Pamoate (Hydroxyzine Pamoate 25 Mg Cap) 25 mg PO Q6H PRN PRN Reason: Anxiety Insulin Human Lispro (Insulin Lispro 100 Unit/Ml) 0 unit SUB-Q ACHS [facility]; Protocol Last Admin: 11/26/21 22:08 Dose: 2 unit Metformin HCl (Metformin 500 Mg Tab) 500 mg PO BIDDIAB [facility] Last Admin: 11/26/21 17:25 Dose: 500 mg Pantoprazole Sodium (Pantoprazole 40 Mg Tab) 40 mg PO QDAY [facility] Last Admin: 11/26/21 10:37 Dose: 40 mg Trazodone HCl (Trazodone 50 Mg Tab) 50 mg PO QHS [facility] Last Admin: 11/26/21 21:35 Dose: 50 mg Results - Results Labs/Vitals: Laboratory Last Values WBC 8.1 K/mm3 (4.5-11.0) 11/26/21 20:46 RBC 4.80 M/mm3 (3.65-5.03) 11/26/21 20:46 Hgb 13.8 gm/dl (11.8-15.2) 11/26/21 20:46 Hct 41.4 % (35.5-45.6) 11/26/21 20:46 MCV 86 fl (84-94) 11/26/21 20:46 MCH 29 pg (28-32) 11/26/21 20:46 MCHC 33 % (32-34) 11/26/21 20:46 RDW 13.9 % (13.2-15.2) 11/26/21 20:46 Plt Count 222 K/mm3 (140-440) 11/26/21 20:46 Lymph % (Auto) 24.7 % (13.4-35.0) 11/26/21 20:46 [place] % (Auto) 8.2 % (0.0-7.3) H 11/26/21 20:46 Eos % (Auto) 4.2 % (0.0-4.3) 11/26/21 20:46 Baso % (Auto) 0.4 % (0.0-1.8) 11/26/21 20:46 Lymph # (Auto) 2.0 K/mm3 (1.2-5.4) 11/26/21 20:46 [place] # (Auto) 0.7 K/mm3 (0.0-0.8) 11/26/21 20:46 Eos # (Auto) 0.3 K/mm3 (0.0-0.4) 11/26/21 20:46 Baso # (Auto) 0.0 K/mm3 (0.0-0.1) 11/26/21 20:46 Seg Neutrophils % 62.5 % (40.0-70.0) 11/26/21 20:46 Seg Neutrophils # 5.1 K/mm3 (1.8-7.7) 11/26/21 20:46 Sodium 139 mmol/L (137-145) 11/26/21 20:46 Potassium 3.9 mmol/L (3.6-5.0) 11/26/21 20:46 Chloride 101.0 mmol/L (98-107) 11/26/21 20:46 Carbon Dioxide 26 mmol/L (22-30) 11/26/21 20:46 Anion Gap 16 mmol/L 11/26/21 20:46 BUN 13 mg/dL (9-20) 11/26/21 20:46 Creatinine 1.0 mg/dL (0.8-1.3) 11/26/21 20:46 Estimated GFR > 60 ml/min 11/26/21 20:46 BUN/Creatinine Ratio 13 % 11/26/21 20:46 Glucose 106 mg/dL (75-100) H 11/26/21 20:46 POC Glucose 82 mg/dL (70-105) 11/27/21 07:45 Hemoglobin A1c 5.6 % (4-6) 11/26/21 20:46 Calcium 9.5 mg/dL (8.4-10.2) 11/26/21 20:46 Total Bilirubin < 0.20 mg/dL (0.1-1.2) 11/26/21 20:46 AST 12 units/L (5-40) 11/26/21 20:46 ALT 9 units/L (7-56) 11/26/21 20:46 Alkaline Phosphatase 72 units/L (35-129) 11/26/21 20:46 Total Protein 7.0 g/dL (6.3-8.2) 11/26/21 20:46 Albumin 4.1 g/dL (3.9-5) 11/26/21 20:46 Albumin/Globulin Ratio 1.4 % 11/26/21 20:46 Triglycerides 122 mg/dL (2-149) 11/26/21 20:46 Cholesterol 159 mg/dL (50-199) 11/26/21 20:46 LDL Cholesterol Direct 84 mg/dL (50-130) 11/26/21 20:46 HDL Cholesterol 57 mg/dL (40-59) 11/26/21 20:46 Cholesterol/HDL Ratio 2.78 % 11/26/21 20:46 TSH 1.260 mlU/mL (0.270-4.200) 11/26/21 20:46 Last Vital Signs Temp 98.6 F 11/26/21 08:24 Pulse 66 11/26/21 08:24 Resp 16 11/26/21 08:24 BP 99/50 11/26/21 08:24 Pulse Ox 96 11/26/21 08:24
[2021-11-27] MEDS: PANTOPRAZOLE 40 MG TAB PO SCH (09:19)
[2021-11-27] MEDS: BENZTROPINE 0.5 MG TAB PO SCH ×2 (09:19→21:34)
[2021-11-27] MEDS: ARIPiprazole 10 MG TAB PO SCH (09:19)
[2021-11-27] MEDS: DIVALPROEX SPRINKLE 125 MG CAP PO SCH ×2 (09:19→21:34)
[2021-11-27] MEDS: CITALOPRAM 20 MG TAB PO SCH (09:20)
[2021-11-27] MEDS: traZODone 50 MG TAB PO SCH (21:34)
[2021-11-28] MEDS: metFORMIN 500 MG TAB PO SCH ×2 (08:12→16:43)
[2021-11-28] MEDS: BENZOCAINE 13 ML BOTTLE (ORAJEL) MM PRN (08:18)
--- NOTE | 2021-11-28 08:58 | Progress Note ---
Subjective Date of service: 11/28/21 Subjective Comment: 11/28/21: The patient was seen this morning. He states " I feel happy, I see people talking about my mind, women like my father. " He reports sleep and appetite as good. He denies any current suicidal/homicidal ideation and continues to have auditory hallucinations. 11/27/21: The patient was seen this morning. He reports doing well " I'm thankful for having a place to stay." He reports sleep and appetite as good. He denies any current suicidal/homicidal ideation but states he has fascinations about people and presidents. 11/26/21: The patient was seen this morning. He continues to be disorganized. States depression as 4/10 and anxiety as 8/10 " I fell kind of stressed." he denies nay current suicidal/homicidal ideation. Patient unable to answer AVHs stating " they say I fantasize." 11/25/21: The patient was seen this morning. He is complaining of headache and toothache. He continues to endorse depression rating s 6/10, he denies any current suicidal ideation and continues to have have auditory hallucinations. REVIEW OF SYSTEMS Constitutional: Negative for weight loss ENT: Negative for stridor Respiratory: Negative for cough or hemoptysis All other systems reviewed and are negative MENTAL STATUS EXAMINATION General Appearance and Behavior: Age appropriate, good hygiene, wearing appropriate clothes, fair eye contact, cooperative, Cooperation: Participating/engaged, but Guarded Psychomotor Behavior: Psychomotor normal Mood: depressed Affect and affective range: congruent with stated mood Thought Process: illogical Thought Content: Hallucinations Speech: normal tone and pace Suicidal Ideation: Denies Homicidal Ideation: Denies HI Hallucinations: Auditory Impulse Control: limited Insight and Judgment: Poor insight and judgment Memory: Limited Attention: Divided Orientation: Alert, oriented Assessment and Plan Schizophrenia Treatment Plan Patient admitted for inpatient psychiatric evaluation, medication adjustment and close monitoring The patient's behavior, mood, sleep and appetite will be closely monitored. Patient enrolled in individual and group therapeutic sessions and encouraged to attend. Patient provided with a safe and structured environment. Patient's physical health needs will be addressed by the Hospitalist. Hospitalist Consulted Labs including CBC, CMP, Lipid profile and Hemoglobin A1C levels ordered for baseline reference Social Assessment will be completed and the Knife Operator will work with patient and family to ensure a suitable and safe disposition Medication adjustment will be made as clinically indicated Continue meds Continue Abilify 10mg po daily Continue Celexa 20mg po daily Usual Wellness [facility]/Preservation: - Start Trazodone 50 mg po QHS & 50 mg po QHS PRN between 10 PM & 2 AM for insomnia - Start Melatonin 5 mg po QHS to promote circadian rhythm The patient agreed on the treatment plan, understood the risk, benefit, alternative treatment, potential consequence of no treatment, and gave informed consent. Estimated days: Post hospital care: primary care provider, psychiatric provider Case staffed with Dr. Walters Legal Status: Voluntary Reaction to Hospitalization: Accepting Medications and Allergies Medications and Allergies Allergies Allergy/AdvReac Type Severity Reaction Status Date / Time No Known Allergies Allergy Unverified 11/23/21 17:00 Home Medications Medication Instructions Recorded Confirmed Last Taken Type ARIPiprazole [Abilify TAB] 5 mg PO DAILY 11/23/21 11/23/21 11/23/21 12:16 History Benztropine [Cogentin] 0.5 mg PO BID 11/23/21 11/23/21 11/23/21 12:17 History Citalopram Hydrobromide 10 mg PO DAILY 11/23/21 11/23/21 11/23/21 12:17 History [Citalopram HBr] Divalproex Sodium [Depakote 125 mg PO BID 11/23/21 11/23/21 11/23/21 12:16 History Sprinkle] Pantoprazole [Protonix] 40 mg PO QDAY 11/23/21 11/23/21 Unknown History hydrOXYzine PAMOATE [Vistaril] 25 mg PO Q6HR PRN 11/23/21 11/23/21 Unknown History metFORMIN [Glucophage] 500 mg PO BID 11/23/21 11/23/21 Unknown History Active Meds: Active Medications Acetaminophen (Acetaminophen 325 Mg Tab) 650 mg PO Q6H PRN PRN Reason: Pain, Mild (1-3) Last Admin: 11/25/21 10:46 Dose: 650 mg Aripiprazole (Aripiprazole 10 Mg Tab) 10 mg PO QDAY [facility] Last Admin: 11/27/21 09:19 Dose: 10 mg Benzocaine (Benzocaine 13 Ml Bottle (Orajel)) 1 applic MM Q6H PRN PRN Reason: Mouth Pain Last Admin: 11/28/21 08:18 Dose: 1 applic Benztropine Mesylate (Benztropine 0.5 Mg Tab) 0.5 mg PO BID [facility] Last Admin: 11/27/21 21:34 Dose: 0.5 mg Citalopram Hydrobromide (Citalopram 20 Mg Tab) 20 mg PO QDAY [facility] Last Admin: 11/27/21 09:20 Dose: 20 mg Dextrose (Dextrose 10% *Hypoglycemia) 0 ml IV PRN PRN PRN Reason: Hypoglycemia Divalproex Sodium (Divalproex Sprinkle 125 Mg Cap) 125 mg PO BID [facility] Last Admin: 11/27/21 21:34 Dose: 125 mg Hydroxyzine Pamoate (Hydroxyzine Pamoate 25 Mg Cap) 25 mg PO Q6H PRN PRN Reason: Anxiety Insulin Human Lispro (Insulin Lispro 100 Unit/Ml) 0 unit SUB-Q ACHS [facility]; Protocol Last Admin: 11/27/21 21:35 Dose: Not Given Metformin HCl (Metformin 500 Mg Tab) 500 mg PO BIDDIAB [facility] Last Admin: 11/28/21 08:12 Dose: 500 mg Pantoprazole Sodium (Pantoprazole 40 Mg Tab) 40 mg PO QDAY [facility] Last Admin: 11/27/21 09:19 Dose: 40 mg Trazodone HCl (Trazodone 50 Mg Tab) 50 mg PO QHS [facility] Last Admin: 11/27/21 21:34 Dose: 50 mg Results - Results Labs/Vitals: Laboratory Last Values WBC 8.1 K/mm3 (4.5-11.0) 11/26/21 20:46 RBC 4.80 M/mm3 (3.65-5.03) 11/26/21 20:46 Hgb 13.8 gm/dl (11.8-15.2) 11/26/21 20:46 Hct 41.4 % (35.5-45.6) 11/26/21 20:46 MCV 86 fl (84-94) 11/26/21 20:46 MCH 29 pg (28-32) 11/26/21 20:46 MCHC 33 % (32-34) 11/26/21 20:46 RDW 13.9 % (13.2-15.2) 11/26/21 20:46 Plt Count 222 K/mm3 (140-440) 11/26/21 20:46 Lymph % (Auto) 24.7 % (13.4-35.0) 11/26/21 20:46 [place] % (Auto) 8.2 % (0.0-7.3) H 11/26/21 20:46 Eos % (Auto) 4.2 % (0.0-4.3) 11/26/21 20:46 Baso % (Auto) 0.4 % (0.0-1.8) 11/26/21 20:46 Lymph # (Auto) 2.0 K/mm3 (1.2-5.4) 11/26/21 20:46 [place] # (Auto) 0.7 K/mm3 (0.0-0.8) 11/26/21 20:46 Eos # (Auto) 0.3 K/mm3 (0.0-0.4) 11/26/21 20:46 Baso # (Auto) 0.0 K/mm3 (0.0-0.1) 11/26/21 20:46 Seg Neutrophils % 62.5 % (40.0-70.0) 11/26/21 20:46 Seg Neutrophils # 5.1 K/mm3 (1.8-7.7) 11/26/21 20:46 Sodium 139 mmol/L (137-145) 11/26/21 20:46 Potassium 3.9 mmol/L (3.6-5.0) 11/26/21 20:46 Chloride 101.0 mmol/L (98-107) 11/26/21 20:46 Carbon Dioxide 26 mmol/L (22-30) 11/26/21 20:46 Anion Gap 16 mmol/L 11/26/21 20:46 BUN 13 mg/dL (9-20) 11/26/21 20:46 Creatinine 1.0 mg/dL (0.8-1.3) 11/26/21 20:46 Estimated GFR > 60 ml/min 11/26/21 20:46 BUN/Creatinine Ratio 13 % 11/26/21 20:46 Glucose 106 mg/dL (75-100) H 11/26/21 20:46 POC Glucose 85 mg/dL (70-105) 11/28/21 07:26 Hemoglobin A1c 5.6 % (4-6) 11/26/21 20:46 Calcium 9.5 mg/dL (8.4-10.2) 11/26/21 20:46 Total Bilirubin < 0.20 mg/dL (0.1-1.2) 11/26/21 20:46 AST 12 units/L (5-40) 11/26/21 20:46 ALT 9 units/L (7-56) 11/26/21 20:46 Alkaline Phosphatase 72 units/L (35-129) 11/26/21 20:46 Total Protein 7.0 g/dL (6.3-8.2) 11/26/21 20:46 Albumin 4.1 g/dL (3.9-5) 11/26/21 20:46 Albumin/Globulin Ratio 1.4 % 11/26/21 20:46 Triglycerides 122 mg/dL (2-149) 11/26/21 20:46 Cholesterol 159 mg/dL (50-199) 11/26/21 20:46 LDL Cholesterol Direct 84 mg/dL (50-130) 11/26/21 20:46 HDL Cholesterol 57 mg/dL (40-59) 11/26/21 20:46 Cholesterol/HDL Ratio 2.78 % 11/26/21 20:46 TSH 1.260 mlU/mL (0.270-4.200) 11/26/21 20:46 Last Vital Signs Temp 98.6 F 11/27/21 19:52 Pulse 71 11/27/21 19:52 Resp 20 11/27/21 19:52 BP 141/99 11/27/21 19:52 Pulse Ox 95 11/27/21 19:52
[2021-11-28] MEDS: INSULIN LISPRO 100 UNIT/ML SUB-Q SCH ×4 (09:39→21:48)
[2021-11-28] MEDS: PANTOPRAZOLE 40 MG TAB PO SCH (09:39)
[2021-11-28] MEDS: CITALOPRAM 20 MG TAB PO SCH (09:39)
[2021-11-28] MEDS: DIVALPROEX SPRINKLE 125 MG CAP PO SCH ×2 (09:39→21:46)
[2021-11-28] MEDS: ARIPiprazole 10 MG TAB PO SCH (09:39)
[2021-11-28] MEDS: BENZTROPINE 0.5 MG TAB PO SCH ×2 (09:40→21:46)
[2021-11-28] MEDS: traZODone 50 MG TAB PO SCH (21:46)
[2021-11-29] MEDS: INSULIN LISPRO 100 UNIT/ML SUB-Q SCH ×4 (07:49→21:32)
[2021-11-29] MEDS: metFORMIN 500 MG TAB PO SCH ×2 (08:20→16:41)
[2021-11-29] MEDS: DIVALPROEX SPRINKLE 125 MG CAP PO SCH ×2 (09:04→21:17)
[2021-11-29] MEDS: PANTOPRAZOLE 40 MG TAB PO SCH (09:04)
[2021-11-29] MEDS: CITALOPRAM 20 MG TAB PO SCH (09:04)
[2021-11-29] MEDS: BENZTROPINE 0.5 MG TAB PO SCH ×2 (09:04→21:17)
[2021-11-29] MEDS: BENZOCAINE 13 ML BOTTLE (ORAJEL) MM PRN (09:05)
[2021-11-29] MEDS: ARIPiprazole 10 MG TAB PO SCH (09:05)
--- NOTE | 2021-11-29 10:24 | Progress Note ---
Subjective Date of service: 11/29/21 Principal diagnosis: schizophrenia Subjective Comment: The patient was seen today. He is responding to internal stimuli. He is laughing inappropriately. He says he is waiting to hear from the leaders of the world. He denies SI/HI. 11/28/21: The patient was seen this morning. He states " I feel happy, I see people talking about my mind, women like my father. " He reports sleep and appetite as good. He denies any current suicidal/homicidal ideation and continues to have auditory hallucinations. 11/27/21: The patient was seen this morning. He reports doing well " I'm thankful for having a place to stay." He reports sleep and appetite as good. He denies any current suicidal/homicidal ideation but states he has fascinations about people and presidents. 11/26/21: The patient was seen this morning. He continues to be disorganized. States depression as 4/10 and anxiety as 8/10 " I fell kind of stressed." he denies nay current suicidal/homicidal ideation. Patient unable to answer AVHs stating " they say I fantasize." 11/25/21: The patient was seen this morning. He is complaining of headache and toothache. He continues to endorse depression rating s 6/10, he denies any current suicidal ideation and continues to have have auditory hallucinations. REVIEW OF SYSTEMS Constitutional: Negative for weight loss ENT: Negative for stridor Respiratory: Negative for cough or hemoptysis All other systems reviewed and are negative MENTAL STATUS EXAMINATION General Appearance and Behavior: Age appropriate, good hygiene, wearing appropriate clothes, fair eye contact, cooperative, Cooperation: Participating/engaged, but Guarded Psychomotor Behavior: Psychomotor normal Mood: alright Affect and affective range: congruent with stated mood Thought Process: illogical Thought Content: Hallucinations Speech: normal tone and pace Suicidal Ideation: Denies Homicidal Ideation: Denies HI Hallucinations: Auditory Impulse Control: limited Insight and Judgment: Poor insight and judgment Memory: Limited Attention: Divided Orientation: Alert, oriented Assessment and Plan Schizophrenia Treatment Plan Patient admitted for inpatient psychiatric evaluation, medication adjustment and close monitoring The patient's behavior, mood, sleep and appetite will be closely monitored. Patient enrolled in individual and group therapeutic sessions and encouraged to attend. Patient provided with a safe and structured environment. Patient's physical health needs will be addressed by the Hospitalist. Hospitalist Consulted Labs including CBC, CMP, Lipid profile and Hemoglobin A1C levels ordered for baseline reference Social Assessment will be completed and the Balancing Machine Operator will work with patient and family to ensure a suitable and safe disposition Medication adjustment will be made as clinically indicated Increased Abilify 15mg po daily Usual Wellness [facility]/Preservation: - Start Trazodone 50 mg po QHS & 50 mg po QHS PRN between 10 PM & 2 AM for insomnia - Start Melatonin 5 mg po QHS to promote circadian rhythm The patient agreed on the treatment plan, understood the risk, benefit, alternative treatment, potential consequence of no treatment, and gave informed consent. Estimated days: Post hospital care: primary care provider, psychiatric provider Case staffed with Dr. Walters Medications and Allergies Allergies Allergy/AdvReac Type Severity Reaction Status Date / Time No Known Allergies Allergy Verified 11/28/21 09:28 Home Medications Medication Instructions Recorded Confirmed Last Taken Type ARIPiprazole [Abilify TAB] 5 mg PO DAILY 07/13/20 02/22/21 Unknown History hydrOXYzine PAMOATE [Vistaril] 25 mg PO TID 07/13/20 02/22/21 07/12/20 History metFORMIN [Glucophage] 500 mg PO BID 07/13/20 02/22/21 1 Day Ago History ~07/12/20 Pantoprazole [Protonix] 40 mg PO QAM 02/22/21 02/22/21 Unknown History Ramelteon 8 mg PO QHS 02/22/21 02/22/21 Unknown History Benztropine [Cogentin] 0.5 mg PO BID #60 tablet 03/05/21 Unknown Rx Divalproex [Andrade Montes] 500 mg PO BID #60 tablet 03/05/21 Unknown Rx haloperidoL [Haldol] 5 mg PO BID #60 tablet 03/05/21 Unknown Rx ARIPiprazole [Abilify TAB] 5 mg PO DAILY 11/23/21 11/23/21 11/23/21 12:16 History Benztropine [Cogentin] 0.5 mg PO BID 11/23/21 11/23/21 11/23/21 12:17 History Citalopram Hydrobromide 10 mg PO DAILY 11/23/21 11/23/21 11/23/21 12:17 History [Citalopram HBr] Divalproex Sodium [Depakote 125 mg PO BID 11/23/21 11/23/21 11/23/21 12:16 History Sprinkle] Pantoprazole [Protonix] 40 mg PO QDAY 11/23/21 11/23/21 Unknown History hydrOXYzine PAMOATE [Vistaril] 25 mg PO Q6HR PRN 11/23/21 11/23/21 Unknown History metFORMIN [Glucophage] 500 mg PO BID 11/23/21 11/23/21 Unknown History Active Meds: Active Medications Acetaminophen (Acetaminophen 325 Mg Tab) 650 mg PO Q6H PRN PRN Reason: Pain, Mild (1-3) Last Admin: 11/25/21 10:46 Dose: 650 mg Aripiprazole (Aripiprazole 15 Mg Tab) 15 mg PO QDAY [facility] Benzocaine (Benzocaine 13 Ml Bottle (Orajel)) 1 applic MM Q6H PRN PRN Reason: Mouth Pain Last Admin: 11/29/21 09:05 Dose: 1 applic Benztropine Mesylate (Benztropine 0.5 Mg Tab) 0.5 mg PO BID [facility] Last Admin: 11/29/21 09:04 Dose: 0.5 mg Citalopram Hydrobromide (Citalopram 20 Mg Tab) 20 mg PO QDAY [facility] Last Admin: 11/29/21 09:04 Dose: 20 mg Dextrose (Dextrose 10% *Hypoglycemia) 0 ml IV PRN PRN PRN Reason: Hypoglycemia Divalproex Sodium (Divalproex Sprinkle 125 Mg Cap) 125 mg PO BID [facility] Last Admin: 11/29/21 09:04 Dose: 125 mg Hydroxyzine Pamoate (Hydroxyzine Pamoate 25 Mg Cap) 25 mg PO Q6H PRN PRN Reason: Anxiety Insulin Human Lispro (Insulin Lispro 100 Unit/Ml) 0 unit SUB-Q [facility]; Protocol Last Admin: 11/29/21 07:49 Dose: Not Given Metformin HCl (Metformin 500 Mg Tab) 500 mg PO BIDDIAB [facility] Last Admin: 11/29/21 08:20 Dose: 500 mg Pantoprazole Sodium (Pantoprazole 40 Mg Tab) 40 mg PO QDAY [facility] Last Admin: 11/29/21 09:04 Dose: 40 mg Trazodone HCl (Trazodone 50 Mg Tab) 50 mg PO QHS [facility] Last Admin: 11/28/21 21:46 Dose: 50 mg Results - Results Labs/Vitals: Laboratory Last Values WBC 8.1 K/mm3 (4.5-11.0) 11/26/21 20:46 RBC 4.80 M/mm3 (3.65-5.03) 11/26/21 20:46 Hgb 13.8 gm/dl (11.8-15.2) 11/26/21 20:46 Hct 41.4 % (35.5-45.6) 11/26/21 20:46 MCV 86 fl (84-94) 11/26/21 20:46 MCH 29 pg (28-32) 11/26/21 20:46 MCHC 33 % (32-34) 11/26/21 20:46 RDW 13.9 % (13.2-15.2) 11/26/21 20:46 Plt Count 222 K/mm3 (140-440) 11/26/21 20:46 Lymph % (Auto) 24.7 % (13.4-35.0) 11/26/21 20:46 [place] % (Auto) 8.2 % (0.0-7.3) H 11/26/21 20:46 Eos % (Auto) 4.2 % (0.0-4.3) 11/26/21 20:46 Baso % (Auto) 0.4 % (0.0-1.8) 11/26/21 20:46 Lymph # (Auto) 2.0 K/mm3 (1.2-5.4) 11/26/21 20:46 [place] # (Auto) 0.7 K/mm3 (0.0-0.8) 11/26/21 20:46 Eos # (Auto) 0.3 K/mm3 (0.0-0.4) 11/26/21 20:46 Baso # (Auto) 0.0 K/mm3 (0.0-0.1) 11/26/21 20:46 Seg Neutrophils % 62.5 % (40.0-70.0) 11/26/21 20:46 Seg Neutrophils # 5.1 K/mm3 (1.8-7.7) 11/26/21 20:46 Sodium 139 mmol/L (137-145) 11/26/21 20:46 Potassium 3.9 mmol/L (3.6-5.0) 11/26/21 20:46 Chloride 101.0 mmol/L (98-107) 11/26/21 20:46 Carbon Dioxide 26 mmol/L (22-30) 11/26/21 20:46 Anion Gap 16 mmol/L 11/26/21 20:46 BUN 13 mg/dL (9-20) 11/26/21 20:46 Creatinine 1.0 mg/dL (0.8-1.3) 11/26/21 20:46 Estimated GFR > 60 ml/min 11/26/21 20:46 BUN/Creatinine Ratio 13 % 11/26/21 20:46 Glucose 106 mg/dL (75-100) H 11/26/21 20:46 POC Glucose 94 mg/dL (70-105) 11/29/21 06:51 Hemoglobin A1c 5.6 % (4-6) 11/26/21 20:46 Calcium 9.5 mg/dL (8.4-10.2) 11/26/21 20:46 Total Bilirubin < 0.20 mg/dL (0.1-1.2) 11/26/21 20:46 AST 12 units/L (5-40) 11/26/21 20:46 ALT 9 units/L (7-56) 11/26/21 20:46 Alkaline Phosphatase 72 units/L (35-129) 11/26/21 20:46 Total Protein 7.0 g/dL (6.3-8.2) 11/26/21 20:46 Albumin 4.1 g/dL (3.9-5) 11/26/21 20:46 Albumin/Globulin Ratio 1.4 % 11/26/21 20:46 Triglycerides 122 mg/dL (2-149) 11/26/21 20:46 Cholesterol 159 mg/dL (50-199) 11/26/21 20:46 LDL Cholesterol Direct 84 mg/dL (50-130) 11/26/21 20:46 HDL Cholesterol 57 mg/dL (40-59) 11/26/21 20:46 Cholesterol/HDL Ratio 2.78 % 11/26/21 20:46 TSH 1.260 mlU/mL (0.270-4.200) 03/08/22 20:46 Last Vital Signs Temp 98.7 F 11/29/21 08:44 Pulse 67 11/29/21 08:44 Resp 18 11/29/21 08:44 BP 103/65 11/29/21 08:44 Pulse Ox 94 11/29/21 08:44
[2021-11-29] MEDS: traZODone 50 MG TAB PO SCH (21:17)
[2021-11-30] MEDS: INSULIN LISPRO 100 UNIT/ML SUB-Q SCH ×4 (08:05→21:01)
[2021-11-30] MEDS: metFORMIN 500 MG TAB PO SCH ×2 (08:09→16:56)
--- NOTE | 2021-11-30 08:48 | Progress Note ---
Subjective Date of service: 11/30/21 Principal diagnosis: schizophrenia Subjective Comment: The patient was seen today. He says he feels a lot better, but states "I still feel scared sometimes." He is laughing inappropriately. He denies SI/HI or hallucinations of any kind,. 11/29 The patient was seen today. He is responding to internal stimuli. He is laughing inappropriately. He says he is waiting to hear from the leaders of the world. He denies SI/HI. 11/28/21: The patient was seen this morning. He states " I feel happy, I see people talking about my mind, women like my father. " He reports sleep and appetite as good. He denies any current suicidal/homicidal ideation and continues to have auditory hallucinations. 11/27/21: The patient was seen this morning. He reports doing well " I'm thankful for having a place to stay." He reports sleep and appetite as good. He denies any current suicidal/homicidal ideation but states he has fascinations about people and presidents. 11/26/21: The patient was seen this morning. He continues to be disorganized. States depression as 4/10 and anxiety as 8/10 " I fell kind of stressed." he denies nay current suicidal/homicidal ideation. Patient unable to answer AVHs stating " they say I fantasize." 11/25/21: The patient was seen this morning. He is complaining of headache and toothache. He continues to endorse depression rating s 6/10, he denies any current suicidal ideation and continues to have have auditory hallucinations. REVIEW OF SYSTEMS Constitutional: Negative for weight loss ENT: Negative for stridor Respiratory: Negative for cough or hemoptysis All other systems reviewed and are negative MENTAL STATUS EXAMINATION General Appearance and Behavior: Age appropriate, good hygiene, wearing appropriate clothes, fair eye contact, cooperative, Cooperation: Participating/engaged, but Guarded Psychomotor Behavior: Psychomotor normal Mood: alright Affect and affective range: congruent with stated mood Thought Process: illogical Thought Content: Hallucinations Speech: normal tone and pace Suicidal Ideation: Denies Homicidal Ideation: Denies HI Hallucinations: Auditory Impulse Control: limited Insight and Judgment: Poor insight and judgment Memory: Limited Attention: Divided Orientation: Alert, oriented Assessment and Plan Schizophrenia Treatment Plan Patient admitted for inpatient psychiatric evaluation, medication adjustment and close monitoring The patient's behavior, mood, sleep and appetite will be closely monitored. Patient enrolled in individual and group therapeutic sessions and encouraged to attend. Patient provided with a safe and structured environment. Patient's physical health needs will be addressed by the Hospitalist. Hospitalist Consulted Labs including CBC, CMP, Lipid profile and Hemoglobin A1C levels ordered for baseline reference Social Assessment will be completed and the Crystalizer will work with patient and family to ensure a suitable and safe disposition Medication adjustment will be made as clinically indicated Increased Abilify 15mg po daily yesterday No changes today Usual Wellness Buddhist/Preservation: - Start Trazodone 50 mg po QHS & 50 mg po QHS PRN between 10 PM & 2 AM for insomnia - Start Melatonin 5 mg po QHS to promote circadian rhythm The patient agreed on the treatment plan, understood the risk, benefit, alternative treatment, potential consequence of no treatment, and gave informed consent. Estimated days: Post hospital care: primary care provider, psychiatric provider Case staffed with Dr. Walters Medications and Allergies Allergies Allergy/AdvReac Type Severity Reaction Status Date / Time No Known Allergies Allergy Verified 11/28/21 09:28 Home Medications Medication Instructions Recorded Confirmed Last Taken Type ARIPiprazole [Abilify TAB] 5 mg PO DAILY 07/13/20 02/22/21 Unknown History hydrOXYzine PAMOATE [Vistaril] 25 mg PO TID 07/13/20 02/22/21 07/12/20 History metFORMIN [Glucophage] 500 mg PO BID 07/13/20 02/22/21 1 Day Ago History ~07/12/20 Pantoprazole [Protonix] 40 mg PO QAM 02/22/21 02/22/21 Unknown History Ramelteon 8 mg PO QHS 02/22/21 02/22/21 Unknown History Benztropine [Cogentin] 0.5 mg PO BID #60 tablet 03/05/21 Unknown Rx Divalproex [Andrade Montes] 500 mg PO BID #60 tablet 03/05/21 Unknown Rx haloperidoL [Haldol] 5 mg PO BID #60 tablet 03/05/21 Unknown Rx ARIPiprazole [Abilify TAB] 5 mg PO DAILY 11/23/21 11/23/21 11/23/21 12:16 History Benztropine [Cogentin] 0.5 mg PO BID 11/23/21 11/23/21 11/23/21 12:17 History Citalopram Hydrobromide 10 mg PO DAILY 11/23/21 11/23/21 11/23/21 12:17 History [Citalopram HBr] Divalproex Sodium [Depakote 125 mg PO BID 11/23/21 11/23/21 11/23/21 12:16 History Sprinkle] Pantoprazole [Protonix] 40 mg PO QDAY 11/23/21 11/23/21 Unknown History hydrOXYzine PAMOATE [Vistaril] 25 mg PO Q6HR PRN 11/23/21 11/23/21 Unknown History metFORMIN [Glucophage] 500 mg PO BID 11/23/21 11/23/21 Unknown History Active Meds: Active Medications Acetaminophen (Acetaminophen 325 Mg Tab) 650 mg PO Q6H PRN PRN Reason: Pain, Mild (1-3) Last Admin: 11/25/21 10:46 Dose: 650 mg Aripiprazole (Aripiprazole 15 Mg Tab) 15 mg PO QDAY [facility] Benzocaine (Benzocaine 13 Ml Bottle (Orajel)) 1 applic MM Q6H PRN PRN Reason: Mouth Pain Last Admin: 11/29/21 09:05 Dose: 1 applic Benztropine Mesylate (Benztropine 0.5 Mg Tab) 0.5 mg PO BID [facility] Last Admin: 11/29/21 21:17 Dose: 0.5 mg Citalopram Hydrobromide (Citalopram 20 Mg Tab) 20 mg PO QDAY [facility] Last Admin: 11/29/21 09:04 Dose: 20 mg Dextrose (Dextrose 10% *Hypoglycemia) 0 ml IV PRN PRN PRN Reason: Hypoglycemia Divalproex Sodium (Divalproex Sprinkle 125 Mg Cap) 125 mg PO BID [facility] Last Admin: 11/29/21 21:17 Dose: 125 mg Hydroxyzine Pamoate (Hydroxyzine Pamoate 25 Mg Cap) 25 mg PO Q6H PRN PRN Reason: Anxiety Insulin Human Lispro (Insulin Lispro 100 Unit/Ml) 0 unit SUB-Q [facility]; Protocol Last Admin: 11/30/21 08:05 Dose: Not Given Metformin HCl (Metformin 500 Mg Tab) 500 mg PO BIDDIAB [facility] Last Admin: 11/30/21 08:09 Dose: 500 mg Pantoprazole Sodium (Pantoprazole 40 Mg Tab) 40 mg PO QDAY [facility] Last Admin: 11/29/21 09:04 Dose: 40 mg Trazodone HCl (Trazodone 50 Mg Tab) 50 mg PO QHS [facility] Last Admin: 11/29/21 21:17 Dose: 50 mg Results - Results Labs/Vitals: Laboratory Last Values WBC 8.1 K/mm3 (4.5-11.0) 11/26/21 20:46 RBC 4.80 M/mm3 (3.65-5.03) 11/26/21 20:46 Hgb 13.8 gm/dl (11.8-15.2) 11/26/21 20:46 Hct 41.4 % (35.5-45.6) 11/26/21 20:46 MCV 86 fl (84-94) 11/26/21 20:46 MCH 29 pg (28-32) 11/26/21 20:46 MCHC 33 % (32-34) 11/26/21 20:46 RDW 13.9 % (13.2-15.2) 11/26/21 20:46 Plt Count 222 K/mm3 (140-440) 11/26/21 20:46 Lymph % (Auto) 24.7 % (13.4-35.0) 11/26/21 20:46 [place] % (Auto) 8.2 % (0.0-7.3) H 11/26/21 20:46 Eos % (Auto) 4.2 % (0.0-4.3) 11/26/21 20:46 Baso % (Auto) 0.4 % (0.0-1.8) 11/26/21 20:46 Lymph # (Auto) 2.0 K/mm3 (1.2-5.4) 11/26/21 20:46 [place] # (Auto) 0.7 K/mm3 (0.0-0.8) 11/26/21 20:46 Eos # (Auto) 0.3 K/mm3 (0.0-0.4) 11/26/21 20:46 Baso # (Auto) 0.0 K/mm3 (0.0-0.1) 11/26/21 20:46 Seg Neutrophils % 62.5 % (40.0-70.0) 11/26/21 20:46 Seg Neutrophils # 5.1 K/mm3 (1.8-7.7) 11/26/21 20:46 Sodium 139 mmol/L (137-145) 11/26/21 20:46 Potassium 3.9 mmol/L (3.6-5.0) 11/26/21 20:46 Chloride 101.0 mmol/L (98-107) 11/26/21 20:46 Carbon Dioxide 26 mmol/L (22-30) 11/26/21 20:46 Anion Gap 16 mmol/L 11/26/21 20:46 BUN 13 mg/dL (9-20) 11/26/21 20:46 Creatinine 1.0 mg/dL (0.8-1.3) 11/26/21 20:46 Estimated GFR > 60 ml/min 11/26/21 20:46 BUN/Creatinine Ratio 13 % 11/26/21 20:46 Glucose 106 mg/dL (75-100) H 11/26/21 20:46 POC Glucose 123 mg/dL (70-105) H 11/29/21 19:39 Hemoglobin A1c 5.6 % (4-6) 11/26/21 20:46 Calcium 9.5 mg/dL (8.4-10.2) 11/26/21 20:46 Total Bilirubin < 0.20 mg/dL (0.1-1.2) 11/26/21 20:46 AST 12 units/L (5-40) 11/26/21 20:46 ALT 9 units/L (7-56) 11/26/21 20:46 Alkaline Phosphatase 72 units/L (35-129) 11/26/21 20:46 Total Protein 7.0 g/dL (6.3-8.2) 11/26/21 20:46 Albumin 4.1 g/dL (3.9-5) 11/26/21 20:46 Albumin/Globulin Ratio 1.4 % 11/26/21 20:46 Triglycerides 122 mg/dL (2-149) 11/26/21 20:46 Cholesterol 159 mg/dL (50-199) 11/26/21 20:46 LDL Cholesterol Direct 84 mg/dL (50-130) 11/26/21 20:46 HDL Cholesterol 57 mg/dL (40-59) 11/26/21 20:46 Cholesterol/HDL Ratio 2.78 % 11/26/21 20:46 TSH 1.260 mlU/mL (0.270-4.200) 11/26/21 20:46 Last Vital Signs Temp 98.5 F 11/29/21 19:25 Pulse 61 11/29/21 19:25 Resp 18 11/29/21 19:25 BP 143/85 11/29/21 19:25 Pulse Ox 94 11/29/21 19:25
[2021-11-30] MEDS: CITALOPRAM 20 MG TAB PO SCH (09:14)
[2021-11-30] MEDS: BENZTROPINE 0.5 MG TAB PO SCH ×2 (09:14→21:28)
[2021-11-30] MEDS: ARIPiprazole 15 MG TAB PO SCH (09:14)
[2021-11-30] MEDS: PANTOPRAZOLE 40 MG TAB PO SCH (09:15)
[2021-11-30] MEDS: DIVALPROEX SPRINKLE 125 MG CAP PO SCH ×2 (09:15→21:28)
[2021-11-30] MEDS: traZODone 50 MG TAB PO SCH (21:28)
[2021-12-01] MEDS: INSULIN LISPRO 100 UNIT/ML SUB-Q SCH ×3 (07:34→16:12)
[2021-12-01] MEDS: metFORMIN 500 MG TAB PO SCH ×2 (09:32→16:35)
[2021-12-01] MEDS: BENZTROPINE 0.5 MG TAB PO SCH ×2 (09:33→22:02)
[2021-12-01] MEDS: DIVALPROEX SPRINKLE 125 MG CAP PO SCH ×2 (09:33→22:02)
[2021-12-01] MEDS: CITALOPRAM 20 MG TAB PO SCH (09:33)
[2021-12-01] MEDS: PANTOPRAZOLE 40 MG TAB PO SCH (09:33)
[2021-12-01] MEDS: ARIPiprazole 15 MG TAB PO SCH (09:33)
--- NOTE | 2021-12-01 09:54 | Progress Note ---
Subjective Date of service: 12/01/21 Principal diagnosis: schizophrenia Subjective Comment: The patient was seen today. He is sleeping but easily arouses. He is calm and cooperative. He denies SI/HI. He denies hallucinations, but states "sometimes I imagine things like space ships and rockets." 11/30 The patient was seen today. He says he feels a lot better, but states "I still feel scared sometimes." He is laughing inappropriately. He denies SI/HI or hallucinations of any kind,. 11/29 The patient was seen today. He is responding to internal stimuli. He is laughing inappropriately. He says he is waiting to hear from the leaders of the world. He denies SI/HI. 11/28/21: The patient was seen this morning. He states " I feel happy, I see people talking about my mind, women like my father. " He reports sleep and appetite as good. He denies any current suicidal/homicidal ideation and continues to have auditory hallucinations. 11/27/21: The patient was seen this morning. He reports doing well " I'm thankful for having a place to stay." He reports sleep and appetite as good. He denies any current suicidal/homicidal ideation but states he has fascinations about people and presidents. 11/26/21: The patient was seen this morning. He continues to be disorganized. States depression as 4/10 and anxiety as 8/10 " I fell kind of stressed." he denies nay current suicidal/homicidal ideation. Patient unable to answer AVHs stating " they say I fantasize." 11/25/21: The patient was seen this morning. He is complaining of headache and toothache. He continues to endorse depression rating s 6/10, he denies any current suicidal ideation and continues to have have auditory hallucinations. REVIEW OF SYSTEMS Constitutional: Negative for weight loss ENT: Negative for stridor Respiratory: Negative for cough or hemoptysis All other systems reviewed and are negative MENTAL STATUS EXAMINATION General Appearance and Behavior: Age appropriate, good hygiene, wearing appropriate clothes, fair eye contact, cooperative, Cooperation: Participating/engaged, but Guarded Psychomotor Behavior: Psychomotor normal Mood: alright Affect and affective range: congruent with stated mood Thought Process: illogical Thought Content: Hallucinations Speech: normal tone and pace Suicidal Ideation: Denies Homicidal Ideation: Denies HI Hallucinations: Auditory Impulse Control: limited Insight and Judgment: Poor insight and judgment Memory: Limited Attention: Divided Orientation: Alert, oriented Assessment and Plan Schizophrenia Treatment Plan Patient admitted for inpatient psychiatric evaluation, medication adjustment and close monitoring The patient's behavior, mood, sleep and appetite will be closely monitored. Patient enrolled in individual and group therapeutic sessions and encouraged to attend. Patient provided with a safe and structured environment. Patient's physical health needs will be addressed by the Hospitalist. Hospitalist Consulted Labs including CBC, CMP, Lipid profile and Hemoglobin A1C levels ordered for baseline reference Social Assessment will be completed and the Cloth Colors Examiner will work with patient and family to ensure a suitable and safe disposition Medication adjustment will be made as clinically indicated Continue Abilify 15mg po daily Usual Wellness Druze/Preservation: - Start Trazodone 50 mg po QHS & 50 mg po QHS PRN between 10 PM & 2 AM for insomnia - Start Melatonin 5 mg po QHS to promote circadian rhythm The patient agreed on the treatment plan, understood the risk, benefit, alternative treatment, potential consequence of no treatment, and gave informed consent. Estimated days: Post hospital care: primary care provider, psychiatric provider Case staffed with Dr. Walters Medications and Allergies Allergies Allergy/AdvReac Type Severity Reaction Status Date / Time No Known Allergies Allergy Verified 11/28/21 09:28 Home Medications Medication Instructions Recorded Confirmed Last Taken Type ARIPiprazole [Abilify TAB] 5 mg PO DAILY 07/13/20 02/22/21 Unknown History hydrOXYzine PAMOATE [Vistaril] 25 mg PO TID 07/13/20 02/22/21 07/12/20 History metFORMIN [Glucophage] 500 mg PO BID 07/13/20 02/22/21 1 Day Ago History ~07/12/20 Pantoprazole [Protonix] 40 mg PO QAM 02/22/21 02/22/21 Unknown History Ramelteon 8 mg PO QHS 02/22/21 02/22/21 Unknown History Benztropine [Cogentin] 0.5 mg PO BID #60 tablet 03/05/21 Unknown Rx Divalproex [Andrade Montes] 500 mg PO BID #60 tablet 03/05/21 Unknown Rx haloperidoL [Haldol] 5 mg PO BID #60 tablet 03/05/21 Unknown Rx ARIPiprazole [Abilify TAB] 5 mg PO DAILY 11/23/21 11/23/21 11/23/21 12:16 History Benztropine [Cogentin] 0.5 mg PO BID 11/23/21 11/23/21 11/23/21 12:17 History Citalopram Hydrobromide 10 mg PO DAILY 11/23/21 11/23/21 11/23/21 12:17 History [Citalopram HBr] Divalproex Sodium [Depakote 125 mg PO BID 11/23/21 11/23/21 11/23/21 12:16 Histo ry Sprinkle] Pantoprazole [Protonix] 40 mg PO QDAY 11/23/21 11/23/21 Unknown History hydrOXYzine PAMOATE [Vistaril] 25 mg PO Q6HR PRN 11/23/21 11/23/21 Unknown History metFORMIN [Glucophage] 500 mg PO BID 11/23/21 11/23/21 Unknown History Active Meds: Active Medications Acetaminophen (Acetaminophen 325 Mg Tab) 650 mg PO Q6H PRN PRN Reason: Pain, Mild (1-3) Last Admin: 11/25/21 10:46 Dose: 650 mg Aripiprazole (Aripiprazole 15 Mg Tab) 15 mg PO QDAY [facility] Last Admin: 12/01/21 09:33 Dose: 15 mg Benzocaine (Benzocaine 13 Ml Bottle (Orajel)) 1 applic MM Q6H PRN PRN Reason: Mouth Pain Last Admin: 11/29/21 09:05 Dose: 1 applic Benztropine Mesylate (Benztropine 0.5 Mg Tab) 0.5 mg PO BID [facility] Last Admin: 12/01/21 09:33 Dose: 0.5 mg Citalopram Hydrobromide (Citalopram 20 Mg Tab) 20 mg PO QDAY [facility] Last Admin: 12/01/21 09:33 Dose: 20 mg Dextrose (Dextrose 10% *Hypoglycemia) 0 ml IV PRN PRN PRN Reason: Hypoglycemia Divalproex Sodium (Divalproex Sprinkle 125 Mg Cap) 125 mg PO BID [facility] Last Admin: 12/01/21 09:33 Dose: 125 mg Hydroxyzine Pamoate (Hydroxyzine Pamoate 25 Mg Cap) 25 mg PO Q6H PRN PRN Reason: Anxiety Insulin Human Lispro (Insulin Lispro 100 Unit/Ml) 0 unit SUB-Q [facility]S [facility]; Protocol Last Admin: 12/01/21 07:34 Dose: Not Given Metformin HCl (Metformin 500 Mg Tab) 500 mg PO BIDDIAB [facility] Last Admin: 12/01/21 09:32 Dose: 500 mg Pantoprazole Sodium (Pantoprazole 40 Mg Tab) 40 mg PO QDAY [facility] Last Admin: 12/01/21 09:33 Dose: 40 mg Trazodone HCl (Trazodone 50 Mg Tab) 50 mg PO QHS [facility] Last Admin: 11/30/21 21:28 Dose: 50 mg Results - Results Labs/Vitals: Laboratory Last Values WBC 8.1 K/mm3 (4.5-11.0) 11/26/21 20:46 RBC 4.80 M/mm3 (3.65-5.03) 11/26/21 20:46 Hgb 13.8 gm/dl (11.8-15.2) 11/26/21 20:46 Hct 41.4 % (35.5-45.6) 11/26/21 20:46 MCV 86 fl (84-94) 11/26/21 20:46 MCH 29 pg (28-32) 11/26/21 20:46 MCHC 33 % (32-34) 11/26/21 20:46 RDW 13.9 % (13.2-15.2) 11/26/21 20:46 Plt Count 222 K/mm3 (140-440) 11/26/21 20:46 Lymph % (Auto) 24.7 % (13.4-35.0) 11/26/21 20:46 [place] % (Auto) 8.2 % (0.0-7.3) H 11/26/21 20:46 Eos % (Auto) 4.2 % (0.0-4.3) 11/26/21 20:46 Baso % (Auto) 0.4 % (0.0-1.8) 11/26/21 20:46 Lymph # (Auto) 2.0 K/mm3 (1.2-5.4) 11/26/21 20:46 [place] # (Auto) 0.7 K/mm3 (0.0-0.8) 11/26/21 20:46 Eos # (Auto) 0.3 K/mm3 (0.0-0.4) 11/26/21 20:46 Baso # (Auto) 0.0 K/mm3 (0.0-0.1) 11/26/21 20:46 Seg Neutrophils % 62.5 % (40.0-70.0) 11/26/21 20:46 Seg Neutrophils # 5.1 K/mm3 (1.8-7.7) 11/26/21 20:46 Sodium 139 mmol/L (137-145) 11/26/21 20:46 Potassium 3.9 mmol/L (3.6-5.0) 11/26/21 20:46 Chloride 101.0 mmol/L (98-107) 11/26/21 20:46 Carbon Dioxide 26 mmol/L (22-30) 11/26/21 20:46 Anion Gap 16 mmol/L 11/26/21 20:46 BUN 13 mg/dL (9-20) 11/26/21 20:46 Creatinine 1.0 mg/dL (0.8-1.3) 11/26/21 20:46 Estimated GFR > 60 ml/min 11/26/21 20:46 BUN/Creatinine Ratio 13 % 11/26/21 20:46 Glucose 106 mg/dL (75-100) H 11/26/21 20:46 POC Glucose 123 mg/dL (70-105) H 11/29/21 19:39 Hemoglobin A1c 5.6 % (4-6) 11/26/21 20:46 Calcium 9.5 mg/dL (8.4-10.2) 11/26/21 20:46 Total Bilirubin < 0.20 mg/dL (0.1-1.2) 11/26/21 20:46 AST 12 units/L (5-40) 11/26/21 20:46 ALT 9 units/L (7-56) 11/26/21 20:46 Alkaline Phosphatase 72 units/L (35-129) 11/26/21 20:46 Total Protein 7.0 g/dL (6.3-8.2) 11/26/21 20:46 Albumin 4.1 g/dL (3.9-5) 11/26/21 20:46 Albumin/Globulin Ratio 1.4 % 11/26/21 20:46 Triglycerides 122 mg/dL (2-149) 11/26/21 20:46 Cholesterol 159 mg/dL (50-199) 11/26/21 20:46 LDL Cholesterol Direct 84 mg/dL (50-130) 11/26/21 20:46 HDL Cholesterol 57 mg/dL (40-59) 11/26/21 20:46 Cholesterol/HDL Ratio 2.78 % 11/26/21 20:46 TSH 1.260 mlU/mL (0.270-4.200) 11/26/21 20:46 Last Vital Signs Temp 98.2 F 11/30/21 19:28 Pulse 60 11/30/21 19:28 Resp 17 11/30/21 19:28 BP 154/71 11/30/21 19:28 Pulse Ox 95 11/30/21 19:28
[2021-12-01] MEDS ORDERED: ZIPRASIDONE MESYLATE 20 MG VIAL IM ONE (19:24)
[2021-12-01] MEDS ORDERED: LORazepam 2 MG/ML VIAL IM PRN (19:27)
[2021-12-01] MEDS: traZODone 50 MG TAB PO SCH (22:02)
[2021-12-02] MEDS: INSULIN LISPRO 100 UNIT/ML SUB-Q SCH ×4 (08:20→21:17)
[2021-12-02] MEDS: PANTOPRAZOLE 40 MG TAB PO SCH (09:05)
[2021-12-02] MEDS: metFORMIN 500 MG TAB PO SCH ×2 (09:05→16:39)
[2021-12-02] MEDS: CITALOPRAM 20 MG TAB PO SCH (09:05)
[2021-12-02] MEDS: ARIPiprazole 15 MG TAB PO SCH (09:05)
[2021-12-02] MEDS: BENZTROPINE 0.5 MG TAB PO SCH ×2 (09:05→21:08)
[2021-12-02] MEDS: DIVALPROEX SPRINKLE 125 MG CAP PO SCH ×2 (09:05→21:08)
--- NOTE | 2021-12-02 11:09 | Progress Note ---
Subjective Date of service: 12/02/21 Principal diagnosis: schizophrenia Subjective Comment: The patient was seen today. He is smiling and laughing inappropriately. He is calm and cooperative. He denies SI/HI. He denies hallucinations. 12/01 The patient was seen today. He is sleeping but easily arouses. He is calm and cooperative. He denies SI/HI. He denies hallucinations, but states "sometimes I imagine things like space ships and rockets." 11/30 The patient was seen today. He says he feels a lot better, but states "I still feel scared sometimes." He is laughing inappropriately. He denies SI/HI or hallucinations of any kind,. 11/29 The patient was seen today. He is responding to internal stimuli. He is laughing inappropriately. He says he is waiting to hear from the leaders of the world. He denies SI/HI. 11/28/21: The patient was seen this morning. He states " I feel happy, I see people talking about my mind, women like my father. " He reports sleep and appetite as good. He denies any current suicidal/homicidal ideation and continues to have auditory hallucinations. 11/27/21: The patient was seen this morning. He reports doing well " I'm thankfu l for having a place to stay." He reports sleep and appetite as good. He denies any current suicidal/homicidal ideation but states he has fascinations about people and presidents. 11/26/21: The patient was seen this morning. He continues to be disorganized. States depression as 4/10 and anxiety as 8/10 " I fell kind of stressed." he denies nay current suicidal/homicidal ideation. Patient unable to answer AVHs stating " they say I fantasize." 11/25/21: The patient was seen this morning. He is complaining of headache and toothache. He continues to endorse depression rating s 6/10, he denies any current suicidal ideation and continues to have have auditory hallucinations. REVIEW OF SYSTEMS Constitutional: Negative for weight loss ENT: Negative for stridor Respiratory: Negative for cough or hemoptysis All other systems reviewed and are negative MENTAL STATUS EXAMINATION General Appearance and Behavior: Age appropriate, good hygiene, wearing appropriate clothes, fair eye contact, cooperative, Cooperation: Participating/engaged, but Guarded Psychomotor Behavior: Psychomotor normal Mood: alright Affect and affective range: congruent with stated mood Thought Process: illogical Thought Content: Hallucinations Speech: normal tone and pace Suicidal Ideation: Denies Homicidal Ideation: Denies HI Hallucinations: Auditory Impulse Control: limited Insight and Judgment: Poor insight and judgment Memory: Limited Attention: Divided Orientation: Alert, oriented Assessment and Plan Schizophrenia Treatment Plan Patient admitted for inpatient psychiatric evaluation, medication adjustment and close monitoring The patient's behavior, mood, sleep and appetite will be closely monitored. Patient enrolled in individual and group therapeutic sessions and encouraged to attend. Patient provided with a safe and structured environment. Patient's physical health needs will be addressed by the Hospitalist. Hospitalist Consulted Labs including CBC, CMP, Lipid profile and Hemoglobin A1C levels ordered for baseline reference Social Assessment will be completed and the Biology Adjunct Instructor will work with patient and family to ensure a suitable and safe disposition Medication adjustment will be made as clinically indicated Increase Abilify 20mg po daily Usual Wellness Judaism/Preservation: - Start Trazodone 50 mg po QHS & 50 mg po QHS PRN between 10 PM & 2 AM for insomnia - Start Melatonin 5 mg po QHS to promote circadian rhythm The patient agreed on the treatment plan, understood the risk, benefit, alternative treatment, potential consequence of no treatment, and gave informed consent. Estimated days: Post hospital care: primary care provider, psychiatric provider Case staffed with Dr. Walters Medications and Allergies Allergies Allergy/AdvReac Type Severity Reaction Status Date / Time No Known Allergies Allergy Verified 11/28/21 09:28 Home Medications Medication Instructions Recorded Confirmed Last Taken Type ARIPiprazole [Abilify TAB] 5 mg PO DAILY 07/13/20 02/22/21 Unknown History hydrOXYzine PAMOATE [Vistaril] 25 mg PO TID 07/13/20 02/22/21 07/12/20 History metFORMIN [Glucophage] 500 mg PO BID 07/13/20 02/22/21 1 Day Ago History ~07/12/20 Pantoprazole [Protonix] 40 mg PO QAM 02/22/21 02/22/21 Unknown History Ramelteon 8 mg PO QHS 02/22/21 02/22/21 Unknown History Benztropine [Cogentin] 0.5 mg PO BID #60 tablet 03/05/[address] [Depakote Dr] 500 mg PO BID #60 tablet 03/05/21 Unknown Rx haloperidoL [Haldol] 5 mg PO BID #60 tablet 03/05/21 Unknown Rx ARIPiprazole [Abilify TAB] 5 mg PO DAILY 11/23/21 11/23/21 11/23/21 12:16 History Benztropine [Cogentin] 0.5 mg PO BID 11/23/21 11/23/21 11/23/21 12:17 History Citalopram Hydrobromide 10 mg PO DAILY 11/23/21 11/23/21 11/23/21 12:17 History [Citalopram HBr] Divalproex Sodium [Depakote 125 mg PO BID 11/23/21 11/23/21 11/23/21 12:16 History Sprinkle] Pantoprazole [Protonix] 40 mg PO QDAY 11/23/21 11/23/21 Unknown History hydrOXYzine PAMOATE [Vistaril] 25 mg PO Q6HR PRN 11/23/21 11/23/21 Unknown History metFORMIN [Glucophage] 500 mg PO BID 11/23/21 11/23/21 Unknown History Active Meds: Active Medications Acetaminophen (Acetaminophen 325 Mg Tab) 650 mg PO Q6H PRN PRN Reason: Pain, Mild (1-3) Last Admin: 11/25/21 10:46 Dose: 650 mg Aripiprazole (Aripiprazole 15 Mg Tab) 15 mg PO QDAY [facility] Last Admin: 12/02/21 09:05 Dose: 15 mg Benzocaine (Benzocaine 13 Ml Bottle (Orajel)) 1 applic MM Q6H PRN PRN Reason: Mouth Pain Last Admin: 11/29/21 09:05 Dose: 1 applic Benztropine Mesylate (Benztropine 0.5 Mg Tab) 0.5 mg PO BID [facility] Last Admin: 12/02/21 09:05 Dose: 0.5 mg Citalopram Hydrobromide (Citalopram 20 Mg Tab) 20 mg PO QDAY [facility] Last Admin: 12/02/21 09:05 Dose: 20 mg Dextrose (Dextrose 10% *Hypoglycemia) 0 ml IV PRN PRN PRN Reason: Hypoglycemia Divalproex Sodium (Divalproex Sprinkle 125 Mg Cap) 125 mg PO BID [facility] Last Admin: 12/02/21 09:05 Dose: 125 mg Hydroxyzine Pamoate (Hydroxyzine Pamoate 25 Mg Cap) 25 mg PO Q6H PRN PRN Reason: Anxiety Insulin Human Lispro (Insulin Lispro 100 Unit/Ml) 0 unit SUB-Q ACHS [facility]; Protocol Last Admin: 12/01/21 16:12 Dose: Not Given Lorazepam (Lorazepam 2 Mg/Ml Vial) 2 mg IM Q6H PRN PRN Reason: Agitation Last Admin: 12/01/21 19:35 Dose: 2 mg Metformin HCl (Metformin 500 Mg Tab) 500 mg PO BIDDIAB [facility] Last Admin: 12/02/21 09:05 Dose: 500 mg Pantoprazole Sodium (Pantoprazole 40 Mg Tab) 40 mg PO QDAY [facility] Last Admin: 12/02/21 09:05 Dose: 40 mg Trazodone HCl (Trazodone 50 Mg Tab) 50 mg PO QHS [facility] Last Admin: 12/01/21 22:02 Dose: Not Given Results - Results Labs/Vitals: Laboratory Last Values WBC 8.1 K/mm3 (4.5-11.0) 11/26/21 20:46 RBC 4.80 M/mm3 (3.65-5.03) 11/26/21 20:46 Hgb 13.8 gm/dl (11.8-15.2) 11/26/21 20:46 Hct 41.4 % (35.5-45.6) 11/26/21 20:46 MCV 86 fl (84-94) 11/26/21 20:46 MCH 29 pg (28-32) 11/26/21 20:46 MCHC 33 % (32-34) 11/26/21 20:46 RDW 13.9 % (13.2-15.2) 11/26/21 20:46 Plt Count 222 K/mm3 (140-440) 11/26/21 20:46 Lymph % (Auto) 24.7 % (13.4-35.0) 11/26/21 20:46 [place] % (Auto) 8.2 % (0.0-7.3) H 11/26/21 20:46 Eos % (Auto) 4.2 % (0.0-4.3) 11/26/21 20:46 Baso % (Auto) 0.4 % (0.0-1.8) 11/26/21 20:46 Lymph # (Auto) 2.0 K/mm3 (1.2-5.4) 11/26/21 20:46 [place] # (Auto) 0.7 K/mm3 (0.0-0.8) 11/26/21 20:46 Eos # (Auto) 0.3 K/mm3 (0.0-0.4) 11/26/21 20:46 Baso # (Auto) 0.0 K/mm3 (0.0-0.1) 11/26/21 20:46 Seg Neutrophils % 62.5 % (40.0-70.0) 11/26/21 20:46 Seg Neutrophils # 5.1 K/mm3 (1.8-7.7) 11/26/21 20:46 Sodium 139 mmol/L (137-145) 11/26/21 20:46 Potassium 3.9 mmol/L (3.6-5.0) 11/26/21 20:46 Chloride 101.0 mmol/L (98-107) 11/26/21 20:46 Carbon Dioxide 26 mmol/L (22-30) 11/26/21 20:46 Anion Gap 16 mmol/L 11/26/21 20:46 BUN 13 mg/dL (9-20) 11/26/21 20:46 Creatinine 1.0 mg/dL (0.8-1.3) 11/26/21 20:46 Estimated GFR > 60 ml/min 11/26/21 20:46 BUN/Creatinine Ratio 13 % 11/26/21 20:46 Glucose 106 mg/dL (75-100) H 11/26/21 20:46 POC Glucose 123 mg/dL (70-105) H 11/29/21 19:39 Hemoglobin A1c 5.6 % (4-6) 11/26/21 20:46 Calcium 9.5 mg/dL (8.4-10.2) 11/26/21 20:46 Total Bilirubin < 0.20 mg/dL (0.1-1.2) 11/26/21 20:46 AST 12 units/L (5-40) 11/26/21 20:46 ALT 9 units/L (7-56) 11/26/21 20:46 Alkaline Phosphatase 72 units/L (35-129) 11/26/21 20:46 Total Protein 7.0 g/dL (6.3-8.2) 11/26/21 20:46 Albumin 4.1 g/dL (3.9-5) 11/26/21 20:46 Albumin/Globulin Ratio 1.4 % 11/26/21 20:46 Triglycerides 122 mg/dL (2-149) 11/26/21 20:46 Cholesterol 159 mg/dL (50-199) 11/26/21 20:46 LDL Cholesterol Direct 84 mg/dL (50-130) 11/26/21 20:46 HDL Cholesterol 57 mg/dL (40-59) 11/26/21 20:46 Cholesterol/HDL Ratio 2.78 % 11/26/21 20:46 TSH 1.260 mlU/mL (0.270-4.200) 11/26/21 20:46 Last Vital Signs Temp 98.5 F 12/02/21 08:57 Pulse 70 12/02/21 08:57 Resp 20 12/02/21 08:57 BP 103/64 12/02/21 08:57 Pulse Ox 95 12/02/21 08:57
[2021-12-02] MEDS: ACETAMINOPHEN 325 MG TAB PO PRN (13:05)
--- NOTE | 2021-12-02 13:23 | Progress Note ---
Assessment and Plan - Patient Problems (1) Diabetes Current Visit: Yes Status: Acute Plan to address problem: Consistent carbohydrate diet, Accu-Chek, insulin protocol, hypoglycemia protocol. Hemoglobin A1c ordered and pending at this time. (2) GERD (gastroesophageal reflux disease) Current Visit: Yes Status: Acute Qualifiers: Esophagitis presence: without esophagitis Qualified Code(s): K21.9 - Gastro-esophageal reflux disease without esophagitis Plan to address problem: PPI therapy, supportive care. Outpatient GI follow-up for further care and evaluation. (3) Seizure disorder Current Visit: Yes Status: Acute Plan to address problem: Continue current therapy, neuro check, seizure precautions. (4) Metabolic syndrome Current Visit: Yes Status: Acute (5) Obesity (BMI 30.0-34.9) Current Visit: Yes Status: Acute Plan to address problem: Balanced diet, increase physical activity discharge, low-cholesterol diet, statin therapy. (6) LETICIA (generalized anxiety disorder) Current Visit: Yes Status: Acute Plan to address problem: Benzodiazepine therapy as clinically indicated. (7) MDD (major depressive disorder) Current Visit: Yes Status: Acute Plan to address problem: Continue medical management. Further care as per mental health team. (8) Advance care planning Current Visit: Yes Status: Acute Plan to address problem: Disease education conducted, care plan discussed, diagnoses discussed, prognosis discussed, patient is full code. Patient acknowledges understanding and agreement with care plan, +30 minutes. History Interval history: 55 YO Male with Obesity, GERD, DM, Metabolic Syndrome, Seizure Disorder, DM, Bipolar Disorder, Schizophrenia, MDD, PTSD admitted to [facility] for psych iatric stabilization. Consult placed by Dr. Bueno for medical management. Patient seen and evaluated in the recreation room. No reported nursing events. Patient is at baseline level of cognition and function at this time. Hospitalist Physical - Constitutional Vitals: Temp Pulse Resp BP Pulse Ox 98.5 F 70 18 103/64 95 12/02/21 08:57 12/02/21 08:57 12/02/21 13:05 12/02/21 08:57 12/02/21 08:57 General appearance: Present: no acute distress, obese Results - Labs CBC & Chem 7: 11/26/21 20:46 11/26/21 20:46 Labs: Laboratory Last Values WBC 8.1 K/mm3 (4.5-11.0) 11/26/21 20:46 RBC 4.80 M/mm3 (3.65-5.03) 11/26/21 20:46 Hgb 13.8 gm/dl (11.8-15.2) 11/26/21 20:46 Hct 41.4 % (35.5-45.6) 11/26/21 20:46 MCV 86 fl (84-94) 11/26/21 20:46 MCH 29 pg (28-32) 11/26/21 20:46 MCHC 33 % (32-34) 11/26/21 20:46 RDW 13.9 % (13.2-15.2) 11/26/21 20:46 Plt Count 222 K/mm3 (140-440) 11/26/21 20:46 Lymph % (Auto) 24.7 % (13.4-35.0) 11/26/21 20:46 [place] % (Auto) 8.2 % (0.0-7.3) H 11/26/21 20:46 Eos % (Auto) 4.2 % (0.0-4.3) 11/26/21 20:46 Baso % (Auto) 0.4 % (0.0-1.8) 11/26/21 20:46 Lymph # (Auto) 2.0 K/mm3 (1.2-5.4) 11/26/21 20:46 [place] # (Auto) 0.7 K/mm3 (0.0-0.8) 11/26/21 20:46 Eos # (Auto) 0.3 K/mm3 (0.0-0.4) 11/26/21 20:46 Baso # (Auto) 0.0 K/mm3 (0.0-0.1) 11/26/21 20:46 Seg Neutrophils % 62.5 % (40.0-70.0) 11/26/21 20:46 Seg Neutrophils # 5.1 K/mm3 (1.8-7.7) 11/26/21 20:46 Sodium 139 mmol/L (137-145) 11/26/21 20:46 Potassium 3.9 mmol/L (3.6-5.0) 11/26/21 20:46 Chloride 101.0 mmol/L (98-107) 11/26/21 20:46 Carbon Dioxide 26 mmol/L (22-30) 11/26/21 20:46 Anion Gap 16 mmol/L 11/26/21 20:46 BUN 13 mg/dL (9-20) 11/26/21 20:46 Creatinine 1.0 mg/dL (0.8-1.3) 11/26/21 20:46 Estimated GFR > 60 ml/min 11/26/21 20:46 BUN/Creatinine Ratio 13 % 11/26/21 20:46 Glucose 106 mg/dL (75-100) H 11/26/21 20:46 POC Glucose 123 mg/dL (70-105) H 11/29/21 19:39 Hemoglobin A1c 5.6 % (4-6) 11/26/21 20:46 Calcium 9.5 mg/dL (8.4-10.2) 11/26/21 20:46 Total Bilirubin < 0.20 mg/dL (0.1-1.2) 11/26/21 20:46 AST 12 units/L (5-40) 11/26/21 20:46 ALT 9 units/L (7-56) 11/26/21 20:46 Alkaline Phosphatase 72 units/L (35-129) 11/26/21 20:46 Total Protein 7.0 g/dL (6.3-8.2) 11/26/21 20:46 Albumin 4.1 g/dL (3.9-5) 11/26/21 20:46 Albumin/Globulin Ratio 1.4 % 11/26/21 20:46 Triglycerides 122 mg/dL (2-149) 11/26/21 20:46 Cholesterol 159 mg/dL (50-199) 11/26/21 20:46 LDL Cholesterol Direct 84 mg/dL (50-130) 11/26/21 20:46 HDL Cholesterol 57 mg/dL (40-59) 11/26/21 20:46 Cholesterol/HDL Ratio 2.78 % 11/26/21 20:46 TSH 1.260 mlU/mL (0.270-4.200) 11/26/21 20:46 Damon/IV: Voiding Method Toilet Active Medications - Current Medications Current Medications: Generic Name Dose Route Start Last Admin Trade Name Freq PRN Reason Stop Dose Admin Acetaminophen 650 mg 11/25/21 08:30 12/02/21 13:05 Acetaminophen 325 Mg Tab PO 650 mg Q6H PRN Administration Pain, Mild (1-3) Aripiprazole 20 mg 12/03/21 10:00 Aripiprazole 10 Mg Tab PO QDAY [facility] Benzocaine 1 applic 11/27/21 17:27 11/29/21 09:05 Benzocaine 13 Ml Bottle (Orajel) MM 1 applic Q6H PRN Administration Mouth Pain Benztropine Mesylate 0.5 mg 11/24/21 10:00 12/02/21 09:05 Benztropine 0.5 Mg Tab PO 0.5 mg BID [facility]RAM Administration Citalopram Hydrobromide 20 mg 11/25/21 10:00 12/02/21 09:05 Citalopram 20 Mg Tab PO 20 mg QDAY [facility]UR[facility] Administration Dextrose 0 ml 11/24/21 15:57 Dextrose 10% *Hypoglycemia IV PRN PRN Hypoglycemia Divalproex Sodium 125 mg 11/24/21 10:00 12/02/21 09:05 Divalproex Sprinkle 125 Mg Cap PO 125 mg BID [facility] Administration Hydroxyzine Pamoate 25 mg 11/24/21 09:08 Hydroxyzine Pamoate 25 Mg Cap PO Q6H PRN Anxiety Insulin Human Lispro 0 unit 11/24/21 16:30 12/02/21 11:41 Insulin Lispro 100 Unit/Ml SUB-Q Not Given ACHS [facility] Protocol Lorazepam 2 mg 12/01/21 19:27 12/01/21 19:35 Lorazepam 2 Mg/Ml Vial IM 2 mg Q6H PRN Administration Agitation Metformin HCl 500 mg 11/24/21 10:00 12/02/21 09:05 Metformin 500 Mg Tab PO 500 mg BIDDIAB [facility] Administration Pantoprazole Sodium 40 mg 11/24/21 10:00 12/02/21 09:05 Pantoprazole 40 Mg Tab PO 40 mg QDAY [facility] Administration Trazodone HCl 50 mg 11/23/21 22:00 12/01/21 22:02 Trazodone 50 Mg Tab PO Not Given QHS [facility] Nutrition/Malnutrition Assess - Dietary Evaluation Nutrition/Malnutrition Findings: Nutrition Notes Start: 11/29/21 12:28 Freq: Status: Active Protocol: Document 11/29/21 12:28 DUSTIN (Rec: 11/29/21 12:31 NHALL [id number]) Nutrition Notes Need for Assessment generated from: LOS Initial or Follow up Brief Note Current Diet Consistent CHO Height 6 ft 3 in Weight 108.8 kg [place] Body Weight (kg) 89.09 BMI 29.9 Weight Status Obese Subjective/Other Information Pt screened for LOS. He has consumed 100% of meals since admission. Percent of energy/protein needs met: 100% energy and pro Burn Absent Trauma Absent Minimum of two criteria No Is patient on ventilator? No Is Patient Ambulatory and/or Out of Bed Yes REE-([place]. Jeor-ambulatory/OOB) [ 2604.719 NUTR.[id number]] Kcal/Kg value to use for calculation 19 Approximate Energy Requirements Using 2066 kcal/Kg Calculation Used for Recommendations Kcal/kg Additional Notes Pro needs 0.8-1g/kg adjBW: 79- 99g/day Fluid needs 1ml/kcal Nutrition Intervention Revisit per MD consult or patient Sign Off request:
[2021-12-02] MEDS: traZODone 50 MG TAB PO SCH (21:08)
[2021-12-03] MEDS: INSULIN LISPRO 100 UNIT/ML SUB-Q SCH ×2 (07:58→12:15)
[2021-12-03] MEDS: metFORMIN 500 MG TAB PO SCH (07:58)
[2021-12-03 09:16] VITALS: BP 123/76
[2021-12-03] MEDS: PANTOPRAZOLE 40 MG TAB PO SCH (09:17)
[2021-12-03] MEDS: BENZTROPINE 0.5 MG TAB PO SCH (09:17)
[2021-12-03] MEDS: CITALOPRAM 20 MG TAB PO SCH (09:17)
[2021-12-03] MEDS: DIVALPROEX SPRINKLE 125 MG CAP PO SCH (09:19)
--- NOTE | 2021-12-03 09:20 | Discharge Summary ---
Providers - Providers Date of Admission: 11/23/21 16:08 Date of discharge: 12/03/21 Attending physician: NHUNG UNDERWOOD MD 11/23/21 17:46 Consult to Physician [CONS] Routine Comment: Consulting Provider: GERMÁN HAMMOND Physician Instructions: Reason For Exam: manage medical conditions Primary care physician: NHUNG UNDERWOOD MD Hospitalization Reason for admission: psychosis Admitting Diagnosis: F20.9 - SCHIZOPHRENIA, UNSPECIFIED Condition: Stable Hospital course: The patient was provided inpatient psychiatric treatment with safe and supportive environment, group/individual therapy, psychiatric medication, medication adjustment, adverse effect monitor, medical evaluation, medical treatment, social service assessment, social support meeting, placement assessment and psycho-education. The patients mood, cognition, behavior, motivation, compliance to treatment and appreciation on family/social support are improved and stabilized. At the time of discharge, the patient had no suicidal ideas, no homicidal ideas, no aggressive thoughts, no endangering behavior and no debilitating adverse effects. The patient agreed on the treatment plan, understood the risk, benefit, alternative treatment, potential consequence of no treatment, and gave informed consent. 12/03 The patient is seen today. He says he feels better but a little stressed. I ask him why was he stressed he says "I don't know." He denies SI/HI or hallucinations. He says he slept well. 12/02 The patient was seen today. He is smiling and laughing inappropriately. He is calm and cooperative. He denies SI/HI. He denies hallucinations. 12/01 The patient was seen today. He is sleeping but easily arouses. He is calm and cooperative. He denies SI/HI. He denies hallucinations, but states "sometimes I imagine things like space ships and rockets." 11/30 The patient was seen today. He says he feels a lot better, but states "I still feel scared sometimes." He is laughing inappropriately. He denies SI/HI or hallucinations of any kind,. 11/29 The patient was seen today. He is responding to internal stimuli. He is laughing inappropriately. He says he is waiting to hear from the leaders of the world. He denies SI/HI. 11/28/21: The patient was seen this morning. He states " I feel happy, I see people talking about my mind, women like my father. " He reports sleep and appetite as good. He denies any current suicidal/homicidal ideation and continues to have auditory hallucinations. 11/27/21: The patient was seen this morning. He reports doing well " I'm thankful for having a place to stay." He reports sleep and appetite as good. He denies any current suicidal/homicidal ideation but states he has fascinations about people and presidents. 11/26/21: The patient was seen this morning. He continues to be disorganized. States depression as 4/10 and anxiety as 8/10 " I fell kind of stressed." he denies nay current suicidal/homicidal ideation. Patient unable to answer AVHs stating " they say I fantasize." 11/25/21: The patient was seen this morning. He is complaining of headache and toothache. He continues to endorse depression rating s 6/10, he denies any current suicidal ideation and continues to have have auditory hallucinations. Disposition: 01 HOME / SELF CARE / HOMELESS Time spent for discharge: 35 Allergies/Adverse Reactions: Allergies No Known Allergies Allergy (Verified 11/28/21 09:28) Vital Signs: Last Vital Signs Temp 97.5 F L 12/03/21 08:25 Pulse 69 12/03/21 08:25 Resp 16 12/03/21 08:25 BP 123/76 12/03/21 08:25 Pulse Ox 98 12/03/21 08:25 Last Lab: Laboratory Last Values WBC 8.1 K/mm3 (4.5-11.0) 11/26/21 20:46 RBC 4.80 M/mm3 (3.65-5.03) 11/26/21 20:46 Hgb 13.8 gm/dl (11.8-15.2) 11/26/21 20:46 Hct 41.4 % (35.5-45.6) 11/26/21 20:46 MCV 86 fl (84-94) 11/26/21 20:46 MCH 29 pg (28-32) 11/26/21 20:46 MCHC 33 % (32-34) 11/26/21 20:46 RDW 13.9 % (13.2-15.2) 11/26/21 20:46 Plt Count 222 K/mm3 (140-440) 11/26/21 20:46 Lymph % (Auto) 24.7 % (13.4-35.0) 11/26/21 20:46 [place] % (Auto) 8.2 % (0.0-7.3) H 11/26/21 20:46 Eos % (Auto) 4.2 % (0.0-4.3) 11/26/21 20:46 Baso % (Auto) 0.4 % (0.0-1.8) 11/26/21 20:46 Lymph # (Auto) 2.0 K/mm3 (1.2-5.4) 11/26/21 20:46 [place] # (Auto) 0.7 K/mm3 (0.0-0.8) 11/26/21 20:46 Eos # (Auto) 0.3 K/mm3 (0.0-0.4) 11/26/21 20:46 Baso # (Auto) 0.0 K/mm3 (0.0-0.1) 11/26/21 20:46 Seg Neutrophils % 62.5 % (40.0-70.0) 11/26/21 20:46 Seg Neutrophils # 5.1 K/mm3 (1.8-7.7) 11/26/21 20:46 Sodium 139 mmol/L (137-145) 11/26/21 20:46 Potassium 3.9 mmol/L (3.6-5.0) 11/26/21 20:46 Chloride 101.0 mmol/L (98-107) 11/26/21 20:46 Carbon Dioxide 26 mmol/L (22-30) 11/26/21 20:46 Anion Gap 16 mmol/L 11/26/21 20:46 BUN 13 mg/dL (9-20) 11/26/21 20:46 Creatinine 1.0 mg/dL (0.8-1.3) 11/26/21 20:46 Estimated GFR > 60 ml/min 11/26/21 20:46 BUN/Creatinine Ratio 13 % 11/26/21 20:46 Glucose 106 mg/dL (75-100) H 11/26/21 20:46 POC Glucose 123 mg/dL (70-105) H 11/29/21 19:39 Hemoglobin A1c 5.6 % (4-6) 11/26/21 20:46 Calcium 9.5 mg/dL (8.4-10.2) 11/26/21 20:46 Total Bilirubin < 0.20 mg/dL (0.1-1.2) 11/26/21 20:46 AST 12 units/L (5-40) 11/26/21 20:46 ALT 9 units/L (7-56) 11/26/21 20:46 Alkaline Phosphatase 72 units/L (35-129) 11/26/21 20:46 Total Protein 7.0 g/dL (6.3-8.2) 11/26/21 20:46 Albumin 4.1 g/dL (3.9-5) 11/26/21 20:46 Albumin/Globulin Ratio 1.4 % 11/26/21 20:46 Triglycerides 122 mg/dL (2-149) 11/26/21 20:46 Cholesterol 159 mg/dL (50-199) 11/26/21 20:46 LDL Cholesterol Direct 84 mg/dL (50-130) 11/26/21 20:46 HDL Cholesterol 57 mg/dL (40-59) 11/26/21 20:46 Cholesterol/HDL Ratio 2.78 % 11/26/21 20:46 TSH 1.260 mlU/mL (0.270-4.200) 11/26/21 20:46 Core Measure Documentation - Palliative Care Palliative Care/ Comfort Measures: Not Applicable - Core Measures Any of the following diagnoses?: none Exam - Constitutional Vitals: Temp Pulse Resp BP Pulse Ox 97.5 F L 69 16 123/76 98 12/03/21 08:25 12/03/21 08:25 12/03/21 08:25 12/03/21 08:25 12/03/21 08:25 General appearance: Present: no acute distress - EENT Eyes: Present: PERRL, EOM intact ENT: hearing intact, clear oral mucosa - Neck Neck: Present: supple, normal ROM - Respiratory Respiratory effort: normal Plan Activity: advance as tolerated Weight Bearing Status: Weight Bear as Tolerated Care Plan Goals: Maintain good and stable mental health Plan of Treatment: The patient should be compliant with medications, not to use drugs and not to drink alcohol.The patient understands that if suicidal ideas, homicidal ideas, or any endangering thoughts/behavior arise, they should immediately seek for emergent assistance including but not limited to crisis hot line and emergency room. Follow up with outpatient Psychiatrist and PCP within 7 - 14 days of discharge. Assessment: Schizophrenia Follow up with: NHUNG UNDERWOOD MD [Primary Care Provider] - 7 Days Prescriptions: traZODone [Desyrel] 50 mg PO QHS #30 tablet ARIPiprazole [Abilify TAB] 20 mg PO QDAY #60 tablet Citalopram [Celexa] 20 mg PO QDAY #30 tablet Divalproex Sprinkle [Depakote Sprinkle] 125 mg PO BID #60 capsule
[2021-12-03] MEDS ORDERED: ARIPiprazole 10 MG TAB PO SCH (10:00)
== END 2021-12-03 13:10 | disposition home or self-care (01) | DRG 885 ==
LOC: 5A 16:08 → MERGE 16:08
PROVIDERS: ADMIT Psychiatry & Neurology Psychiatry; ATTEND Psychiatry & Neurology Psychiatry
DX: F20.9 Schizophrenia, unspecified (principal); F32.9 Major depressive disorder, single episode, unspecified; F41.1 Generalized anxiety disorder; K21.9 Gastro-esophageal reflux disease without esophagitis; E11.9 Type 2 diabetes mellitus without complications; G40.909 Epilepsy, unspecified, not intractable, without status epilepticus; F43.10 Post-traumatic stress disorder, unspecified; E88.81 Metabolic syndrome and other insulin resistance; E78.5 Hyperlipidemia, unspecified; E66.9 Obesity, unspecified; I10 Essential (primary) hypertension; Z83.3 Family history of diabetes mellitus; Z82.49 Family history of ischemic heart disease and other diseases of the circulatory system; Z68.34 Body mass index [BMI] 34.0-34.9, adult
CPT/HCPCS: 36415; 80053; 80061; 82962; 83036; 84443; 85025; G0378; Q9967; J1815; J2060; J3486